=== PATIENT | female | born 2000 | race Caucasian/White ===

== ENCOUNTER 2023-10-23 21:53 | Emergency (ER) | payer OTHER, SELFPAY ==
--- NOTE | 2023-10-23 | ECG_ITS ---
Test Reason : chest pain Blood Pressure : / mmHG Vent. Rate : 085 BPM Atrial Rate : 085 BPM P-R Int : 158 ms QRS Dur : 066 ms QT Int : 350 ms P-R-T Axes : 039 010 000 degrees QTc Int : 416 ms Normal sinus rhythm Normal ECG No previous ECGs available Referred By: Generic ED Physician Electronically Signed By:MARI PARDO MD
[2023-10-23 22:05] VITALS: BP 121/64; PULSE 73; RESP 16; TEMP 36.1; O2SAT 100; BMI 28.2
[2023-10-23 22:32] LABS: IDNOW Serial# 08D9AD1C; Strep A Nucleic Acid Negative (Negative)
[2023-10-23 22:35] LABS: IDNOW Serial# 152EDE1D; Influenza A Negative (Negative); Influenza B2 Negative (Negative)
[2023-10-23 23:24] LABS: COVID-19 Test Negative (Negative); IDNOW Serial# 08D9AD1C
--- OUTSIDE RECORDS SUMMARY | 2023-10-25 10:44 | XMS_ITS | Continuity of Care Document ---
Author Organization [facility] Address [address] [place] [id number]- Care Team Providers Care Invasive Cardiovascular Technologist Name Role Phone Amilcar REED, Juan Pizano Primary Care Physician [facility] Date(s): 09/26/20 - 11/11/[address] [id number] Attending Physician: Not on Staff, Attending MD Allergies, Adverse Reactions, Alerts Substance Reaction Severity Status NKA Active Immunizations Given and Recorded Vaccine Date Status Refusal Reason influenza virus vaccine, inactivated 06/10/19 Give n influenza virus vaccine, inactivated 05/28/17 Give n influenza virus vaccine, inactivated 03/22/16 Give n influenza virus vaccine, inactivated 03/03/15 Give n influenza virus vaccine, inactivated 07/14/14 Give n influenza virus vaccine, inactivated 06/08/13 Singh rded tetanus/diphtheria/pertussis, acel(Tdap) 05/28/17 Given tetanus/diphtheria/pertussis, acel(Tdap) 09/18/13 Recorded Human Papillomavirus Vaccine 06/20/15 Given Human Papillomavirus Vaccine 03/03/15 Given Human Papillomavirus Vaccine 07/14/14 Given Meningococcal Polysaccharide Vaccine 03/03/15 Give n Varicella Virus Vaccine 09/18/13 Recorded Varicella Virus Vaccine 06/08/13 Recorded Measles/Mumps/Rubella Virus Vaccine 09/18/13 Recor ded Measles/Mumps/Rubella Virus Vaccine 01/01/00 Recor ded hepatitis B pediatric vaccine 09/18/13 Recorded hepatitis B pediatric vaccine 06/08/13 Recorded hepatitis B pediatric vaccine 01/31/99 Recorded Menactra (oldterm) 06/08/13 Recorded Poliovirus Vaccine, Inactivated 01/06/03 Recorded Poliovirus Vaccine, Inactivated 07/03/99 Recorded Poliovirus Vaccine, Inactivated 05/03/99 Recorded Poliovirus Vaccine, Inactivated 03/01/99 Recorded diphtheria/tetanus/pertussis, acel(DTaP) 01/06/03 Recorded diphtheria/tetanus/pertussis, acel(DTaP) 07/03/99 Recorded diphtheria/tetanus/pertussis, acel(DTaP) 05/03/99 Recorded diphtheria/tetanus/pertussis, acel(DTaP) 03/01/99 Recorded Measles Virus Vaccine 10/05/99 Recorded Medications aspirin 81 mg oral tablet, chewable 162 mg, 2, tablet, Chew, Daily, continue until 2 weeks , # 60 tablet, Refills 8, Tot. Refills 8, Maintenance, 08/29/20 13:34:00 EDT, Route to Pharmacy Electronically, [facility] #[id number], Partial fill upon patient request if the pres... Start Date: 08/29/20 Status: Ordered Multivitamins with Folic Acid 1 mg oral tablet 1 tablet, By Mouth, Daily, # 90 tablet, 3 Refills, Maintenance, 11/02/20 8:41:00 EDT, Tablet, [facility] #[id number], Partial fill upon patient request if the prescription is for a schedule II opioid drug., 1 tablet By Mouth Daily,x90 days, 163,... Start Date: 11/02/20 Stop Date: 10/28/21 Status: Ordered Problem List Condition Effective Dates Status Health Status Inform ant Acne(Confirmed) Active Gestational hypertension(Confirmed) 1 09/03/20 Active History of gestational hypertension(Confirmed) Active (Confirmed) Active 1Problem added by Discern Expert Social History Social History Type Response Smoking Status Never (less than 100 in lifetime) entered on: 08/10/20 Sex Female
--- OUTSIDE RECORDS SUMMARY | 2023-10-25 10:44 | XMS_ITS | Continuity of Care Document ---
Author Organization [facility] Address [address] [place] [address]- Care Team Providers Care Skull Splitter Name Role Phone Yina PERRY, Codie Primary Care Physician [facility] Date(s): 01/17/21 - 02/23/21 [facility] [address] [address]- Attending Physician: Not on Staff, Attending MD Allergies, Adverse Reactions, Alerts Substance Reaction Severity Status NKA Active Immunizations Given and Recorded Vaccine Date Status Refusal Reason tetanus/diphtheria/pertussis, acel(Tdap) 11/23/20 Given tetanus/diphtheria/pertussis, acel(Tdap) 05/28/17 Given tetanus/diphtheria/pertussis, acel(Tdap) 09/18/13 Recorded influenza virus vaccine, inactivated 06/10/19 Give n influenza virus vaccine, inactivated 05/28/17 Give n influenza virus vaccine, inactivated 03/22/16 Give n influenza virus vaccine, inactivated 03/03/15 Give n influenza virus vaccine, inactivated 07/14/14 Give n influenza virus vaccine, inactivated 06/08/13 Singh rded Human Papillomavirus Vaccine 06/20/15 Given Human Papillomavirus [...] Recorded Measles Virus Vaccine 10/05/99 Recorded Medications acetaminophen 325 mg oral tablet 650 mg, By Mouth, Every 4 hours, PRN, not to exceed 4000 mg/day, # 50 tablet, Refills 0, Tot. Refills 0, Maintenance, Pain , Mild, 02/16/21 8:25:00 EDT, Route to Pharmacy Electronically, [facility] #[id number], Partial fill upon patient request i... Start Date: 02/16/21 Status: Ordered aspirin 81 mg oral tablet, chewable 162 mg, 2, tablet, Chew, Daily, continue until 2 weeks , # 60 tablet, Refills 8, Tot. Refills 8, Maintenance, 08/29/20 13:34:00 EDT, Route to Pharmacy Electronically, [facility] #[id number], Partial fill upon patient request if the pres... Start Date: 08/29/20 Status: Ordered docusate sodium 100 mg oral capsule 1 capsule = 100 mg, By Mouth, 2 times a day, PRN Constipation, # 60 capsule, 0 Refills, Maintenance, 02/16/21 8:26:00 EDT, Capsule, [facility] #[id number], Partial fill upon patient request if the prescription is for a schedule II opioid drug., 1... Start Date: 02/16/21 Status: Ordered ferrous sulfate 325 mg oral enteric coated tablet 325 mg, By Mouth, 3 times a day, # 90 tablet, Refills 1, Tot. Refills 1, Maintenance, 02/16/21 8:28:00 EDT, Route to Pharmacy Electronically, [facility] #[id number], Partial fill upon patient request if the prescription is for a schedule II opioi... Start Date: 02/16/21 Status: Ordered ibuprofen 800 mg oral tablet 800 mg, 1, tablet, By Mouth, Every 8 hours, PRN, not to exceed 3200 mg/day, # 60 tablet, Refills 0,Tot. Refills 0, Maintenance, Pain , Moderate, 02/16/21 8:26:00 EDT, Route to Pharmacy Electronically, [facility] #[id number], Partial fill upon pa... Start Date: 02/16/21 Status: Ordered Multivitamins with Folic Acid 1 mg oral tablet 1 tablet, By Mouth, Daily, # 90 tablet, 3 Refills, Maintenance, 11/02/20 8:41:00 EDT, Tablet, [facility] #[id number], Partial fill upon patient request if the prescription is for a schedule II opioid drug., 1 tablet By Mouth Daily,x90 days, 163,... Start Date: 11/02/20 Stop Date: 10/28/21 Status: Ordered Problem List Condition Effective Dates Status Health Status Inform ant Acne(Confirmed) Active Anemia of (Confirmed) Active Dizzy spells(Confirmed) Active Headache(Confirmed) Active History of gestational hypertension(Confirmed) Active Non-New Zealander speaking patient(Confirmed) Active Right leg pain(Confirmed) Active (Confirmed) Active Social History Social History Type Response Smoking Status Never (less than 100 in lifetime) entered on: 08/10/20 Sex Female
--- OUTSIDE RECORDS SUMMARY | 2023-10-25 10:44 | XMS_ITS | Continuity of Care Document ---
Author Organization [facility] Address Unknown Care Team Providers Care Shipping Services Sales Representative Name Role Phone Amilcar REED, Juan Pizano Primary Care Physician Encounter [facility] Date(s): 12/20/20 - 01/21/21 [facility] Attending Physician: Kavya Wyatt NP Admitting Physician: Kavya Wyatt NP Referring Physician: Gina Frank CNM Allergies, Adverse Reactions, Alerts Substance Reaction Severity [...] 08/29/20 13:34:00 EDT, Route to Pharmacy Electronically, [facility] #[id number], Partial fill upon patient request if the pres... Start Date: 08/29/20 Status: Ordered ferrous sulfate 325 mg oral enteric coated tablet 325 mg, 1, tablet, By Mouth, 3 times a day, # 90 tablet, Refills 4, Tot. Refills 4, Maintenance, 11/25/20 16:25:00 EDT, Route to Pharmacy Electronically, [facility] #[id number], Partial fill upon patient request if the prescription is for a sched... Start Date: 11/25/20 Status: Ordered Multivitamins with Folic Acid 1 mg oral tablet 1 tablet, By Mouth, Daily, # 90 tablet, 3 Refills, Maintenance, 11/02/20 8:41:00 EDT, Tablet, [facility] #[id number], Partial fill upon patient request if the [...]
--- OUTSIDE RECORDS SUMMARY | 2023-10-25 10:45 | XMS_ITS | Continuity of Care Document ---
Author Organization [facility] Address [address] [place] [address]- Care Team Providers Care Golf Teacher Name Role Phone Codie Bran NP Primary Care Physician [phone] [facility]counter [facility] Date(s): 01/17/21 - 03/16/[address] [address]- Attending Physician: Not on Staff, Attending MD [...] 02/16/21 8:25:00 EDT, Route to Pharmacy Electronically, [facility] #[id number], Partial fill upon patient request i... Start Date: 02/16/21 Status: Ordered aspirin 81 mg oral tablet, chewable 162 mg, 2, tablet, Chew, Daily, continue until 2 weeks , # 60 tablet, Refills 8, Tot. Refills 8, Maintenance, 08/29/20 13:34:00 EDT, Route to Pharmacy Electronically, [facility] #[id number], Partial fill upon patient request if the pres... Start Date: 08/29/20 Status: Ordered docusate sodium 100 mg oral capsule 1 capsule = 100 mg, By Mouth, 2 times a day, PRN Constipation, # 60 capsule, 0 Refills, Maintenance, 02/16/21 8:26:00 EDT, Capsule, [facility] #[id number], Partial fill upon patient request if the prescription is for a schedule II opioid drug., 1... Start Date: 02/16/21 Status: Ordered ferrous sulfate 325 mg oral enteric coated tablet 325 mg, By Mouth, 3 times a day, # 90 tablet, Refills 1, Tot. Refills 1, Maintenance, 02/16/21 8:28:00 EDT, Route to Pharmacy Electronically, [facility] #[id number], Partial fill upon patient request if the prescription is for a schedule II opioi... Start Date: 02/16/21 Status: Ordered ibuprofen 800 mg oral tablet 800 mg, 1, tablet, By Mouth, Every 8 hours, PRN, not to exceed 3200 mg/day, # 60 tablet, Refills 0,Tot. Refills 0, Maintenance, Pain , Moderate, 02/16/21 8:26:00 EDT, Route to Pharmacy Electronically, [facility] #[id number], Partial fill upon pa... Start Date: 02/16/21 Status: Ordered Multivitamins with Folic Acid 1 mg oral tablet 1 tablet, By Mouth, Daily, # 90 tablet, 3 Refills, Maintenance, 11/02/20 8:41:00 EDT, Tablet, [facility] #[id number], Partial fill upon patient request if the prescription is for a schedule II opioid drug., 1 tablet By Mouth Daily,x90 days, 163,... Start Date: 11/02/20 Stop Date: 10/28/21 Status: Ordered Problem List Condition Effective Dates Status Health Status Inform ant Acne(Confirmed) Active Anemia of (Confirmed) Active Dizzy spells(Confirmed) Active Headache(Confirmed) Active History of gestational hypertension(Confirmed) Active Non-Taiwanese speaking patient(Confirmed) Active Right leg pain(Confirmed) Active (Confirmed) Active Social History Social History Type Response Smoking Status Never (less than 100 in lifetime) entered on: 08/10/20 Sex
--- OUTSIDE RECORDS SUMMARY | 2023-10-25 10:45 | XMS_ITS | Continuity of Care Document ---
Author Organization [facility] Address [address] [place] [address]- Care Team Providers Care Bag Shaker Name Role Phone Yina PERRY, Codie Primary Care Physician [facility]counter [facility] Date(s): 08/28/21 - 09/28/[address] [address]- Attending Physician: Codie Bran NP Admitting Physician: Codie Bran NP Allergies, Adverse Reactions, Alerts No Known Allergies Immunizations Given and Recorded Vaccine Date Status [...] 02/16/21 8:25:00 EDT, Route to Pharmacy Electronically, [facility] #[id number], Partial fill upon patient request i... Start Date: 02/16/21 Status: Ordered aspirin 81 mg oral tablet, chewable 162 mg, 2, tablet, Chew, Daily, continue until 2 weeks , # 60 tablet, Refills 8, Tot. Refills 8, Maintenance, 08/29/20 13:34:00 EDT, Route to Pharmacy Electronically, [facility] #[id number], Partial fill upon patient request if the pres... Start Date: 08/29/20 Status: Ordered docusate sodium 100 mg oral capsule 1 capsule = 100 mg, By Mouth, 2 times a day, PRN Constipation, # 60 capsule, 0 Refills, Maintenance, 02/16/21 8:26:00 EDT, Capsule, [facility] #[id number], Partial fill upon patient request if the prescription is for a schedule II opioid drug., 1... Start Date: 02/16/21 Status: Ordered ferrous sulfate 325 mg oral enteric coated tablet 325 mg, By Mouth, 3 times a day, # 90 tablet, Refills 1, Tot. Refills 1, Maintenance, 02/16/21 8:28:00 EDT, Route to Pharmacy Electronically, [facility] #[id number], Partial fill upon patient request if the prescription is for a schedule II opioi... Start Date: 02/16/21 Status: Ordered ibuprofen 800 mg oral tablet 800 mg, 1, tablet, By Mouth, Every 8 hours, PRN, not to exceed 3200 mg/day, # 60 tablet, Refills 0,Tot. Refills 0, Maintenance, Pain , Moderate, 02/16/21 8:26:00 EDT, Route to Pharmacy Electronically, [facility] #[id number], Partial fill upon pa... Start Date: 02/16/21 Status: Ordered Multivitamins with Folic Acid 1 mg oral tablet 1 tablet, By Mouth, Daily, # 90 tablet, 3 Refills, Maintenance, 11/02/20 8:41:00 EDT, Tablet, [facility] #[id number], Partial fill upon patient request if the prescription is for a schedule II opioid drug., 1 tablet By Mouth Daily,x90 days, 163,... Start Date: 11/02/20 Stop Date: 10/28/21 Status: Ordered Problem List Condition Effective Dates Status Health Status Inform ant Acne(Confirmed) Active Anemia of (Confirmed) Active COVID-19(Confirmed) Active Dizzy spells(Confirmed) Active Headache(Confirmed) Active History of gestational hypertension(Confirmed) Active Non-American speaking patient(Confirmed) Active Right leg pain(Confirmed) Active (Confirmed) Active Social History Social History Type Response Smoking Status Never (less than 100 in lifetime) entered on: 08/10/20 Sex
--- OUTSIDE RECORDS SUMMARY | 2023-10-25 10:45 | XMS_ITS | Continuity of Care Document ---
Author Organization [facility] Address [address] [place] [address]- Care Team Providers Care Concrete Swimming Pool Installer Name Role Phone Yina PERRY, Codie Primary Care Physician Encounter [facility] Date(s): 07/29/20 - 07/29/[address] [address] Discharge Disposition: A-D/C Walkout Attending Physician: Tatyana Parra MD Admitting Physician: Tatyana Parra MD Referring Physician: Tatyana Parra MD Allergies, Adverse Reactions, Alerts Substance Reaction [...] Recorded Measles Virus Vaccine 10/05/99 Recorded Medications ondansetron 4 mg oral tablet, disintegrating 1 tablet = 4 mg, By Mouth, Every 8 hours, PRN Nausea & Vomiting, # 30 tablet, 1 Refills, Maintenance, 07/23/20 18:02:00 EST, Tablet, [facility] #[id number], Partial fill upon patient requestif the prescription is for a schedule II opioid drug.,... Start Date: 07/23/20 Status: Ordered Prenatabs Rx oral tablet 1 tablet, By Mouth, Daily, # 30 tablet, 10 Refills, Maintenance, 07/23/20 18:01:00 EST, Tablet, [facility] #[id number], Partial fill upon patient request if the prescription is for a schedule IIopioid drug., 1 tablet By Mouth Daily, 163, cm, 11/... Start Date: 07/23/20 Status: Ordered Tylenol 325 mg oral capsule 2 capsule = 650 mg, By Mouth, Every 6 hours, PRN as needed for pain, # 60 capsule, 1 Refills, Maintenance, 07/23/20 18:02:00 EST, Capsule, [facility] #[id number], Partial fill upon patient request if the prescription is for a schedule II opioid d... Start Date: 07/23/20 Status: Ordered Unisom 25 mg oral tablet 1 tablet = 25 mg, By Mouth, Daily at bedtime, PRN for sleep, # 32 tablet, 1 Refills, Maintenance, 07/23/20 18:02:00 EST, Tablet, [facility] #[id number], Partial fill upon patient request if the prescription is for a schedule II opioid drug., 163,... Start Date: 07/23/20 Status: Ordered Vitamin B6 50 mg oral tablet 50 mg, 1, tablet, By Mouth, Daily, for 14 days, # 30 tablet, Refills 1, Tot. Refills 1, Acute 08/20/20 18:02:00 EDT, 07/23/20 18:02:00 EST, Route to Pharmacy Electronically, [facility] #[id number], Partial fill upon patient request if the prescri... Start Date: 07/23/20 Stop Date: 08/20/20 Status: Ordered Problem List Condition Effective Dates Status Health Status Inform ant Acne(Confirmed) Active Fever and chills(Confirmed) Active Social History Social History Type Response Smoking Status Never smoker; Tobacc o user in household: No; Type: Cigarettes entered on: 09/29/14 Sex Female
--- OUTSIDE RECORDS SUMMARY | 2023-10-25 10:45 | XMS_ITS | Continuity of Care Document ---
Author Organization [facility] Address [address] [place] [address]- Care Team Providers Care Customer Care Associate Name Role Phone Juan Fitzgerald MD Primary Care Physician [facility] Date(s): 11/23/19 - 12/23/19 [facility] [address] [address] Attending Physician: AdmCarlin [email or web address] Admitting Physician: Admtr, Ar8 Referring Physician: Admtr, Ar8 Allergies, Adverse Reactions, Alerts Substance Reaction Severity [...] Recorded Measles Virus Vaccine 10/05/99 Recorded Medications ParaGard intrauterine device 0 Refills, Maintenance, 11/23/19 9:17:00 EDT Start Date: 11/23/19 Status: Ordered Problem List Condition Effective Dates Status Health Status Inform ant Acne(Confirmed) Active Social History Social History Type Response Smoking Status Never smoker; Tobacc o user in household: No; Type: Cigarettes entered on: 09/29/14 Sex Female
--- OUTSIDE RECORDS SUMMARY | 2023-10-25 10:45 | XMS_ITS | Continuity of Care Document ---
Author Organization [facility] Address [address] [place] [address]- Care Team Providers Care Die Holder Name Role Phone Yina PERRY, Codie Primary Care Physician [facility] Date(s): 11/13/21 - 12/13/21 [facility] [address] [place] [address]- Allergies, Adverse Reactions, Alerts No Known Allergies [...] Recorded Measles Virus Vaccine 10/05/99 Recorded Medications Multivitamins with Folic Acid 1 mg oral tablet 1 tablet, By Mouth, Daily, # 90 tablet, 3 Refills, Maintenance, 11/28/21 13:23:00 EDT, Tablet, [facility] #[id number], Partial fill upon patient request if the prescription is for a schedule II opioid drug., 1 tablet By Mouth Daily,x90 days, 159,... Start Date: 11/28/21 Stop Date: 11/23/22 Status: Ordered Problem List Condition Effective Dates Status Health Status Inform ant Acne(Confirmed) Active COVID-19(Confirmed) Active Dizzy spells(Confirmed) Active Headache(Confirmed) Active History of gestational hypertension(Confirmed) Active Non-Wol[place] speaking patient(Confirmed) Active Social History Social History Type Response Smoking Status Never (less than 100 in lifetime) entered on: 08/10/20 Sex
--- OUTSIDE RECORDS SUMMARY | 2023-10-25 10:45 | XMS_ITS | Continuity of Care Document ---
Author Organization [facility] Address [address] [place] [address]- Care Team Providers Care Fund Director Name Role Phone Amilcar REED, Juan Pizano Primary Care Physician [facility] Date(s): 08/29/20 - 11/25/20 [facility] [address] [id number] Attending Physician: Not on Staff, Attending MD [...] 08/29/20 13:34:00 EDT, Route to Pharmacy Electronically, [facility] #[id number], Partial fill upon patient request if the pres... Start Date: 08/29/20 Status: Ordered ferrous sulfate 325 mg oral enteric coated tablet 325 mg, 1, tablet, By Mouth, 3 times a day, # 90 tablet, Refills 4, Tot. Refills 4, Maintenance, 11/25/20 16:25:00 EDT, Route to Pharmacy Electronically, [facility] #[id number], Partial fill upon patient request if the prescription is for a sched... Start Date: 11/25/20 Status: Ordered Multivitamins with Folic Acid 1 mg oral tablet 1 tablet, By Mouth, Daily, # 90 tablet, 3 Refills, Maintenance, 11/02/20 8:41:00 EDT, Tablet, [facility] #[id number], Partial fill upon patient request if the [...]
--- OUTSIDE RECORDS SUMMARY | 2023-10-25 10:45 | XMS_ITS | Continuity of Care Document ---
Author Organization [facility] Address [address] [place] [address]- Care Team Providers Care Folder Stitcher Operator Name Role Phone Yina PERRY, Codie Primary Care Physician [phone] [facility] Date[facility]): 01[facility]23 - 03/06/[address] [address] Attending Physician: Not on Staff, Attending MD Allergies, Adverse Reactions, Alerts No Known Allergies [...] Recorded Measles Virus Vaccine 10/05/99 Recorded Medications Advair Diskus 100 mcg-50 mcg inhalation powder 1, puffs, Inhalation, 2 times a day, # 28 each, Refills 5, Tot. Refills 5, Maintenance, 02/27/23 14:42:00 EDT, Powder, Route to Pharmacy Electronically, [id number], [facility]/pharmacy #[id number], 166, cm, 02/27/23 14:02:00 EDT, Height,... Start Date: 02/27/23 Status: Ordered albuterol CFC free 90 mcg/inh inhalation aerosol 2, puffs, Inhalation, Every 6 hours, PRN, # 8.5 Gm, Refills 4, Tot. Refills 4, Maintenance, 02/13/23 15:05:00 EDT, Route to Pharmacy Electronically, [id number], [facility]/pharmacy#[id number], 166, cm, 02/13/23 14:58:00 EDT, Height, 70.8... Start Date: 02/13/23 Status: Ordered albuterol-ipratropium 3 mg-0.5 mg/3 ml inhalation solution See Instructions, 3 mL Inhalation 4 times a day prn wheezing., # 90 mL, 11 Refills, Maintenance, 02/27/23 14:58:00 EDT, Solution, [facility]/pharmacy #[id number], Partial fill upon patient request if the prescription is for a schedule II opioid drug., 3 mL Inhalat... Start Date: 02/27/23 Status: Ordered benzonatate 200 mg oral capsule 1 capsule = 200 mg, By Mouth, 3 times a day, PRN as needed for cough, for 14 days, # 42 capsule, 0 Refills, Acute 03/19/23 14:51:00 EDT, 03/05/23 14:51:00 EDT, Capsule, [facility]/pharmacy #[id number], Partial fill upon patient request if the prescription is for a... Start Date: 03/05/23 Stop Date: 03/19/23 Status: Ordered fluticasone 50 mcg/inh nasal spray 1 sprays, Nares, Both, 2 times a day, # 16 Gm, 0 Refills, Maintenance, 03/05/23 14:51:00 EDT, [place], [facility]/pharmacy #[id number], Partial fill upon patient request if the prescription is for a schedule II opioid drug., 1 sprays Nares, Both 2 times a day, 166,... Start Date: 03/05/23 Status: Ordered lidocaine 5% topical film 1 patch, Topically, Daily, PRN Pain , Mild, remove after 12 hours, # 13 each, 0 Refills, Maintenance, 01/16/23 16:19:00 EDT, Film, [facility]/pharmacy #[id number], Partial fill upon patient request if the prescription is for a schedule II opioid drug., 1 patch Top... Start Date: 01/16/23 Status: Ordered Liletta 52 mg intrauterine device 1 each = 52 mg, Once, inserted 04/09, 0 Refills, Maintenance, 05/24/22 7:11:00 EST, Partial fill upon patient request if the prescription is for a schedule II opioid drug. Start Date: 05/24/22 Status: Ordered Nebulizer tubing and supplies Nebulizer tubing and supplies, See Instructions, # 1 each, Refills 0, Tot. Refills 0, Maintenance, ICD J45.909, 02/27/23 15:01:00 EDT, Supply Start Date: 02/27/23 Status: Ordered Nebulizer/Compressor See Instructions, # 1 each, Maintenance, Please use with you nebulizer medication. J45.909, 02/27/23 14:55:00 EDT, Supply Start Date: 02/27/23 Status: Ordered Singulair 10 mg oral tablet 10 mg, 1, tablet, By Mouth, Daily, # 30 tablet, Refills 5, Tot. Refills 5, Maintenance, 02/13/23 15:07:00 EDT, Route to Pharmacy Electronically, [facility]/pharmacy #[id number], Partial fill upon patient request if the prescription is for a schedule II opioid drug... Start Date: 02/13/23 Stop Date: 08/12/23 Status: Ordered Tylenol 325 mg oral capsule 2 capsule = 650 mg, By Mouth, Every 4 hours, PRN as needed for pain, # 90 capsule, 0 Refills, Maintenance, 01/16/23 16:38:00 EDT, Capsule, [facility]/pharmacy #[id number], Partial fill upon patient request if theprescription is for a schedule II opioid drug., 166... Start Date: 01/16/23 Status: Ordered Zithromax Z-Eliseo 250 mg oral tablet 1 pack/packet, By Mouth, Once, # 6 tablet, 0 Refills, Soft Stop, 02/13/23 15:05:00 EDT, Tablet, [facility]/pharmacy #[id number], Partial fill upon patient request if the prescription is for a schedule II opioid drug., 166, cm, 02/13/23 14:58:00 EDT, Height, 70.8,... Start Date: 02/13/23 Status: Ordered Problem List Condition Confirmation Course Effective Dates Status Health St atus Informant Acne Confirmed Active Dizzy spells Confirmed Active Headache Confirmed Active History of gestational hypertension Confirmed Active Non-Bahraini speaking patient Confirmed Active Social History Social History Type Response Smoking Status Never (less than 100 in lifetime) entered on: 08/10/20 Sex Patient Care team information Care Team Personnel Name: Codie Bran NP Position: [facility] PCO Associate Professional Member Role: PCP Address: Address: [address] [place], [place] [id number]- Care Team Related Persons Name: JONO WADSWORTH Address: home [address] [place] [id number] Name: SYD MENDEZ Address: home [address] [place] [id number] Name: MAEVE RODRIGUEZ Address: [address] Address: [address]
--- OUTSIDE RECORDS SUMMARY | 2023-10-25 10:45 | XMS_ITS | Continuity of Care Document ---
Author Organization [facility] Address [address] [place] [address]- Care Team Providers Care Psychiatry Physician Name Role Phone Yina PERRY, Codie Primary Care Physician [facility] Date[facility]): 07/18/20 - 08/17/20 [facility] [address] [address] Allergies, Adverse Reactions, Alerts Substance Reaction Severity [...] tablet, Refills 8, Tot. Refills 8, Maintenance, 08/10/20 11:50:00 EDT, Route to Pharmacy Electronically, [facility] #[id number], Partial fill upon patient request if the pres... Start Date: 08/10/20 Status: Ordered ondansetron 4 mg oral tablet, disintegrating 1 tablet = 4 mg, By Mouth, Every 8 hours, PRN Nausea & Vomiting, # 30 tablet, 1 Refills, Maintenance, 07/23/20 18:02:00 EST, Tablet, [facility] #[id number], Partial fill upon patient requestif the prescription is for a schedule II opioid drug.,... Start Date: 07/23/20 Status: Ordered Prenatabs Rx oral tablet 1 tablet, By Mouth, Daily, # 30 tablet, 10 Refills, Maintenance, 07/23/20 18:01:00 EST, Tablet, [facility] #[id number], Partial fill upon patient request if the prescription is for a schedule IIopioid drug., 1 tablet By Mouth Daily, 163, cm, ... Start Date: 07/23/20 Status: Ordered Tylenol 325 mg oral capsule 2 capsule = 650 mg, By Mouth, Every 6 hours, PRN as needed for pain, # 60 capsule, 1 Refills, Maintenance, 07/23/20 18:02:00 EST, Capsule, [facility] #[id number], Partial fill upon patient request if the prescription is for a schedule II opioid d... Start Date: 07/23/20 Status: Ordered Unisom 25 mg oral tablet 1 tablet = 25 mg, By Mouth, Daily at bedtime, PRN for sleep, # 32 tablet, 1 Refills, Maintenance, 07/23/20 18:02:00 EST, Tablet, [facility] #[id number], Partial fill upon patient request if the prescription is for a schedule II opioid drug., 163,... Start Date: 07/23/20 Status: Ordered Vitamin B6 50 mg oral tablet 50 mg, 1, tablet, By Mouth, Daily, for 14 days, # 30 tablet, Refills 1, Tot. Refills 1, Acute 08/20/20 18:02:00 EDT, 07/23/20 18:02:00 EST, Route to Pharmacy Electronically, [facility] #[id number], Partial fill upon patient request if the prescri... Start Date: 07/23/20 Stop Date: 08/20/20 Status: Ordered Problem List Condition Effective Dates Status Health Status Inform ant Acne(Confirmed) Active History of gestational hypertension(Confirmed) Active Social History Social History Type Response Smoking Status Never (less than 100 in lifetime) entered on: 08/10/20 Sex Female
--- OUTSIDE RECORDS SUMMARY | 2023-10-25 10:45 | XMS_ITS | Continuity of Care Document ---
Author Organization [facility] ter Address [address] [place] [address]- Care Team Providers Care Agricultural Service Technician Name Role Phone Yina PERRY, Codie Primary Care Physician [facility] Date[facility]): 06/12/19 - 06/13/[address] [address]- [facility] Discharge Disposition: A-D/C Home Attending Physician: Ade Calderón DO Admitting Physician: Ade Calderón DO Referring Physician: Ade Calderón DO Allergies, Adverse Reactions, Alerts Substance Reaction Severity [...] Recorded Measles Virus Vaccine 10/05/99 Recorded Medications ibuprofen 800 mg oral tablet 800 mg, 1, tablet, By Mouth, 3 times a day, # 50 tablet, Refills 0, Tot. Refills 0, Maintenance, 06/12/19 23:33:00 EST, Route to Pharmacy Electronically, [facility] #[id number], 163, cm, 06/12/19 20:18:00 EST, Height Start Date: 06/12/19 Status: Ordered Tylenol 325 mg oral tablet 325 mg, 1, tablet, By Mouth, Every 4 hours, PRN, # 60 tablet, Refills 0, Tot. Refills 0, Maintenance, for pain, 06/12/19 23:33:00 EST, Route to Pharmacy Electronically, [facility] #[id number], 163, cm, 06/12/19 20:18:00 EST, Height Start Date: 06/12/19 Status: Ordered Problem List Condition Effective Dates Status Health Status Inform ant Acne(Confirmed) Active Contraception(Confirmed) Active Distressed about housing issues(Confirmed) Active Positive test(Confirmed) Active Vital Signs Most recent to oldest [Reference Range]: 1 2 Height 163 cm (06/12/19 8:18 PM) Oxygen Saturation [94-100 %] 100 % (06/12/19 8:18 PM) Pulse Rate [55-90 bpm] 87 bpm (06/12/19 8:18 PM) Blood Pressure [90-138/55-84 mm Hg] 122/ 76mm Hg (06/12/19 8:18 PM) Respiratory Rate [16-30 br/min] 16 br/mi n (06/12/19 10:10 PM) 16 br/min (06/12/19 8:18 PM) Temperature [96.8-100.4 DegF] 98.2 DegF (06/12/19 8:18 PM) Mode of Delivery (Oxygen) Room air (06/12/19 8:18 PM) Blood pressure sites Arm, left (06/12/19 8:18 PM) Temperature Route Oral (06/12/19 8:18 PM) Social History Social History Type Response Smoking Status Never smoker; Tobacc o user in household: No; Type: Cigarettes entered on: 09/29/14 Sex
--- OUTSIDE RECORDS SUMMARY | 2023-10-25 10:45 | XMS_ITS | Continuity of Care Document ---
Author Organization [facility] Address [address] [place] [address]- Care Team Providers Care Radioactivity Technician Name Role Phone Codie Bran NP Primary Care Physician [phone] [facility] Date(s): 06/18/19 - 06/28/[address] [address]- [facility] Attending Physician: Greg Canales Admitting Physician: AdmtrGreg Referring Physician: Admtr, Ar8 Allergies, Adverse Reactions, [...] 06/12/19 23:33:00 EST, Route to Pharmacy Electronically, [facility] #[id number], 163, cm, 06/12/19 20:18:00 EST, Height Start Date: 06/12/19 Status: Ordered Tylenol 325 mg oral tablet 325 mg, 1, tablet, By Mouth, Every 4 hours, PRN, # 60 tablet, Refills 0, Tot. Refills 0, Maintenance, for pain, 06/12/19 23:33:00 EST, Route to Pharmacy Electronically, [facility] #[id number], 163, cm, 06/12/19 20:18:00 EST, Height Start Date: 06/12/19 Status: Ordered Problem List Condition Effective Dates Status Health Status Inform ant Acne(Confirmed) Active Contraception(Confirmed) Active Distressed about housing issues(Confirmed) Active Positive test(Confirmed) Active Social History Social History Type Response Smoking Status Never smoker; Tobacc o user in household: No; Type: Cigarettes entered on: 09/29/14 Sex
--- OUTSIDE RECORDS SUMMARY | 2023-10-25 10:45 | XMS_ITS | Continuity of Care Document ---
Author Organization [facility] ter Address [address] [place] [address]- Care Team Providers Care Vice Principal Name Role Phone Yina PERRY, Codie Primary Care Physician [place] [facility] [place] - 02/16/[address] [address] Discharge Disposition: A-D/C Home Attending Physician: Guanaco Phelps MD Admitting Physician: Guanaco Phelps MD Referring Physician: Guanaco Phelps MD Allergies, Adverse Reactions, Alerts Substance Reaction [...] 02/16/21 8:25:00 EDT, Route to Pharmacy Electronically, [facility] #[id number], Partial fill upon patient request i... Start Date: 02/16/21 Status: Ordered aspirin 81 mg oral tablet, chewable 162 mg, 2, tablet, Chew, Daily, continue until 2 weeks , # 60 tablet, Refills 8, Tot. Refills 8, Maintenance, 08/29/20 13:34:00 EDT, Route to Pharmacy Electronically, [facility] #[id number], Partial fill upon patient request if the pres... Start Date: 08/29/20 Status: Ordered docusate sodium 100 mg oral capsule 1 capsule = 100 mg, By Mouth, 2 times a day, PRN Constipation, # 60 capsule, 0 Refills, Maintenance, 02/16/21 8:26:00 EDT, Capsule, [facility] #[id number], Partial fill upon patient request if the prescription is for a schedule II opioid drug., 1... Start Date: 02/16/21 Status: Ordered ferrous sulfate 325 mg oral enteric coated tablet 325 mg, By Mouth, 3 times a day, # 90 tablet, Refills 1, Tot. Refills 1, Maintenance, 02/16/21 8:28:00 EDT, Route to Pharmacy Electronically, [facility] #[id number], Partial fill upon patient request if the prescription is for a schedule II opioi... Start Date: 02/16/21 Status: Ordered ibuprofen 800 mg oral tablet 800 mg, 1, tablet, By Mouth, Every 8 hours, PRN, not to exceed 3200 mg/day, # 60 tablet, Refills 0,Tot. Refills 0, Maintenance, Pain , Moderate, 02/16/21 8:26:00 EDT, Route to Pharmacy Electronically, [facility] #[id number], Partial fill upon pa... Start Date: 02/16/21 Status: Ordered Multivitamins with Folic Acid 1 mg oral tablet 1 tablet, By Mouth, Daily, # 90 tablet, 3 Refills, Maintenance, 11/02/20 8:41:00 EDT, Tablet, [facility] #[id number], Partial fill upon patient request if the prescription is for a schedule II opioid drug., 1 tablet By Mouth Daily,x90 days, 163,... Start Date: 11/02/20 Stop Date: 10/28/21 Status: Ordered Problem List Condition Effective Dates Status Health Status Inform ant Acne(Confirmed) Active Anemia of (Confirmed) Active Dizzy spells(Confirmed) Active Headache(Confirmed) Active History of gestational hypertension(Confirmed) Active Non-Austrian speaking patient(Confirmed) Active Right leg pain(Confirmed) Active (Confirmed) Active Vital Signs Most recent to oldest [Reference Range]: 1 2 3 Height 168 cm (02/16/21 9:00 AM) 168 cm (02/16/21 8:50 AM) 168 cm (02/16/21 12:10 AM) Weight 75 kg (02/13/21 11:17 PM) 75 kg (02/13/21 9:14 PM) Oxygen Saturation [94-100 %] 99 % (02/16/21 12:10 AM) 99 % (02/15/21 2:00 AM) 99 % (02/14/21 8:30 PM) Pulse Rate [55-90 bpm] 81 bpm (02/16/21 8:50 AM) 78 bpm (02/16/21 12:10 AM) 73 bpm (02/15/21 3:45 PM) Body Mass Index [18.5-24.99] 26.57 *H* (02/13/21 9:14 PM) Blood Pressure [90-138/55-84 mm Hg] 116/72mm Hg (02/16/21 8:50 AM) 116/75mm Hg (02/16/21 12:10 AM) 112/66mm Hg (02/15/21 3:45 PM) Respiratory Rate [16-30 br/min] 18 br/min (02/16/21 8:50 AM) 17 br/min (02/16/21 12:10 AM) 17 br/min (02/15/21 3:45 PM) Temperature [96.8-100.4 DegF] 97.8 DegF (02/16/21 8:50 AM) 97.8 DegF (02/16/21 12:10 AM) 98.2 DegF (02/15/21 3:45 PM) Mode of Delivery (Oxygen) Room air (02/16/21 12:10 AM) Room air (02/15/21 2:00 AM) Room air (02/14/21 8:30 PM) Blood pressure sites Arm, left (02/15/21 3:45 PM) Arm, right (02/15/21 8:45 AM) Arm, left (02/14/21 3:46 PM) Temperature Route Oral (02/16/21 8:50 AM) Oral (02/16/21 12:10 AM) Oral (02/15/21 3:45 PM) Dry Weight 75 kg (02/13/21 9:14 PM) Weight Obtained Via Patient/family state d (02/13/21 11:17 PM) Social History Social History Type Response Smoking Status Never (less than 100 in lifetime) entered on: 08/10/20 Sex Female
--- OUTSIDE RECORDS SUMMARY | 2023-10-25 10:45 | XMS_ITS | Continuity of Care Document ---
Author Organization [facility] Address [address] [place] [address]- Care Team Providers Care Tankerman Name Role Phone Yina PERRY, Codie Primary Care Physician [facility] Date[facility]): 01/12/21 - 02/11/[address] [address] Allergies, Adverse Reactions, Alerts Substance Reaction [...] 08/29/20 13:34:00 EDT, Route to Pharmacy Electronically, [facility] #[id number], Partial fill upon patient request if the pres... Start Date: 08/29/20 Status: Ordered ferrous sulfate 325 mg oral enteric coated tablet 325 mg, 1, tablet, By Mouth, 3 times a day, # 90 tablet, Refills 4, Tot. Refills 4, Maintenance, 11/25/20 16:25:00 EDT, Route to Pharmacy Electronically, [facility] #[id number], Partial fill upon patient request if the prescription is for a sched... Start Date: 11/25/20 Status: Ordered Multivitamins with Folic Acid 1 mg oral tablet 1 tablet, By Mouth, Daily, # 90 tablet, 3 Refills, Maintenance, 11/02/20 8:41:00 EDT, Tablet, [facility] #[id number], Partial fill upon patient request if the prescription is for a schedule II opioid drug., 1 tablet By Mouth Daily,x90 days, 163,... Start Date: 11/02/20 Stop Date: 10/28/21 Status: Ordered Tylenol 325 mg oral capsule 1 capsule = 325 mg, By Mouth, Every 4 hours, PRN Pain , Mild, # 20 capsule, 0 Refills, Acute 03/01/21 11:38:00 EDT, 01/30/21 11:37:00 EDT, Capsule, [facility] #[id number], Partial fill upon patient request if the prescription is for a schedule II... Start Date: 01/30/21 Stop Date: 03/01/21 Status: Ordered Problem List Condition Effective Dates Status Health Status Inform ant Acne(Confirmed) Active Gestational hypertension(Confirmed) 1 09/03/20 Active History of gestational hypertension(Confirmed) Active (Confirmed) Active 1Problem added by Discern Expert Social History Social History Type Response Smoking Status Never (less than 100 in lifetime) entered on: 08/10/20 Sex Female
--- OUTSIDE RECORDS SUMMARY | 2023-10-25 10:45 | XMS_ITS | Continuity of Care Document ---
Author Organization [facility] Address [address] [place] [address]- Care Team Providers Care Line Locator Name Role Phone Yina PERRY, Codie Primary Care Physician [facility] Date[facility]s): 04/04/21 - 05/04/[address] [address] Allergies, Adverse Reactions, Alerts Substance Reaction Severity [...] 02/16/21 8:25:00 EDT, Route to Pharmacy Electronically, [facility] #[id number], Partial fill upon patient request i... Start Date: 02/16/21 Status: Ordered aspirin 81 mg oral tablet, chewable 162 mg, 2, tablet, Chew, Daily, continue until 2 weeks , # 60 tablet, Refills 8, Tot. Refills 8, Maintenance, 08/29/20 13:34:00 EDT, Route to Pharmacy Electronically, [facility] #[id number], Partial fill upon patient request if the pres... Start Date: 08/29/20 Status: Ordered docusate sodium 100 mg oral capsule 1 capsule = 100 mg, By Mouth, 2 times a day, PRN Constipation, # 60 capsule, 0 Refills, Maintenance, 02/16/21 8:26:00 EDT, Capsule, [facility] #[id number], Partial fill upon patient request if the prescription is for a schedule II opioid drug., 1... Start Date: 02/16/21 Status: Ordered ferrous sulfate 325 mg oral enteric coated tablet 325 mg, By Mouth, 3 times a day, # 90 tablet, Refills 1, Tot. Refills 1, Maintenance, 02/16/21 8:28:00 EDT, Route to Pharmacy Electronically, [facility] #[id number], Partial fill upon patient request if the prescription is for a schedule II opioi... Start Date: 02/16/21 Status: Ordered ibuprofen 800 mg oral tablet 800 mg, 1, tablet, By Mouth, Every 8 hours, PRN, not to exceed 3200 mg/day, # 60 tablet, Refills 0,Tot. Refills 0, Maintenance, Pain , Moderate, 02/16/21 8:26:00 EDT, Route to Pharmacy Electronically, [facility] #[id number], Partial fill upon pa... Start Date: 02/16/21 Status: Ordered Multivitamins with Folic Acid 1 mg oral tablet 1 tablet, By Mouth, Daily, # 90 tablet, 3 Refills, Maintenance, 11/02/20 8:41:00 EDT, Tablet, [facility] #[id number], Partial fill upon patient request if the prescription is for a schedule II opioid drug., 1 tablet By Mouth Daily,x90 days, 163,... Start Date: 11/02/20 Stop Date: 10/28/21 Status: Ordered Problem List Condition Effective Dates Status Health Status Inform ant Acne(Confirmed) Active Anemia of (Confirmed) Active Dizzy spells(Confirmed) Active Headache(Confirmed) Active History of gestational hypertension(Confirmed) Active Non-Fijian speaking patient(Confirmed) Active Right leg pain(Confirmed) Active (Confirmed) Active Social History Social History Type Response Smoking Status Never (less than 100 in lifetime) entered on: 08/10/20 Sex
--- OUTSIDE RECORDS SUMMARY | 2023-10-25 10:45 | XMS_ITS | Continuity of Care Document ---
Author Organization [facility] Address [address] [place] [address]- Care Team Providers Care Dumpcart Driver Name Role Phone Yina PERRY, Codie Primary Care Physician [facility] Date(s): 06/29/20 - 07/29/[address] [address]- Attending Physician: Greg Canales Admitting Physician: Greg Canales Referring Physician: AdmtrGreg Allergies, Adverse Reactions, Alerts Substance Reaction Severity [...] 1 Refills, Maintenance, 07/23/20 18:02:00 EST, Tablet, [facility] #[id number], Partial fill upon patient requestif the prescription is for a schedule II opioid drug.,... Start Date: 07/23/20 Status: Ordered Prenatabs Rx oral tablet 1 tablet, By Mouth, Daily, # 30 tablet, 10 Refills, Maintenance, 07/23/20 18:01:00 EST, Tablet, [facility] #[id number], Partial fill upon patient request if the prescription is for a schedule IIopioid drug., 1 tablet By Mouth Daily, 163, cm, 11/... Start Date: 07/23/20 Status: Ordered Tylenol 325 mg oral capsule 2 capsule = 650 mg, By Mouth, Every 6 hours, PRN as needed for pain, # 60 capsule, 1 Refills, Maintenance, 07/23/20 18:02:00 EST, Capsule, [facility] #[id number], Partial fill upon patient request if the prescription is for a schedule II opioid d... Start Date: 07/23/20 Status: Ordered Unisom 25 mg oral tablet 1 tablet = 25 mg, By Mouth, Daily at bedtime, PRN for sleep, # 32 tablet, 1 Refills, Maintenance, 07/23/20 18:02:00 EST, Tablet, [facility] #[id number], Partial fill upon patient request if the prescription is for a schedule II opioid drug., 163,... Start Date: 07/23/20 Status: Ordered Vitamin B6 50 mg oral tablet 50 mg, 1, tablet, By Mouth, Daily, for 14 days, # 30 tablet, Refills 1, Tot. Refills 1, Acute 08/20/20 18:02:00 EDT, 07/23/20 18:02:00 EST, Route to Pharmacy Electronically, [facility] #[id number], Partial fill upon patient request if the prescri... Start Date: 07/23/20 Stop Date: 08/20/20 Status: Ordered Problem List Condition Effective Dates Status Health Status Inform ant Acne(Confirmed) Active Fever and chills(Confirmed) Active Social History Social History Type Response Smoking Status Never smoker; Tobacc o user in household: No; Type: Cigarettes entered on: 09/29/14 Sex Female
--- OUTSIDE RECORDS SUMMARY | 2023-10-25 10:45 | XMS_ITS | Continuity of Care Document ---
Author Organization [facility] Address [address] [place] [address]- Care Team Providers Care Unmanned Equipment Operator Name Role Phone Yina PERRY, Codie Primary Care Physician [facility] Date(s): 03/07/22 - 04/06/[address] [address] Allergies, Adverse Reactions, Alerts No Known Allergies [...] Recorded Measles Virus Vaccine 10/05/99 Recorded Medications Chloraseptic 6 mg-10 mg mucous membrane lozenge 1 lozenge, By Mouth, Every 2 hours, PRN for sore throat, # 18 each, 0 Refills, Maintenance, 12/29/21 15:49:00 EDT, Lozenge, [facility]/pharmacy #[id number], Partial fill upon patient request if the prescription is for a schedule II opioid drug., 1 lozenge By Mouth... Start Date: 12/29/21 Status: Ordered ibuprofen 600 mg oral tablet 600 mg, 1, tablet, By Mouth, Every 6 hours, PRN, # 20 tablet, Refills 0, Tot. Refills 0, Maintenance, Pain , Moderate, 12/29/21 15:51:00 EDT, Route to Pharmacy Electronically, [facility]/pharmacy #[id number], Partial fill upon patient request if the prescription i... Start Date: 12/29/21 Status: Ordered Multivitamins with Folic Acid 1 mg oral tablet 1 tablet, By Mouth, Daily, # 90 tablet, 3 Refills, Maintenance, 11/28/21 13:23:00 EDT, Tablet, [facility] #[id number], Partial fill upon patient request if the prescription is for a schedule II opioid drug., 1 tablet By Mouth Daily,x90 days, 159,... Start Date: 11/28/21 Stop Date: 11/23/22 Status: Ordered Tylenol 8 Hour 650 mg oral tablet, extended release 2 tablet = 1,300 mg, By Mouth, Every 8 hours, PRN as needed for fever, # 24 tablet, 0 Refills, Maintenance, 12/29/21 15:49:00 EDT, ER Tablet, [facility]/pharmacy #[id number], Partial fill upon patient request if the prescription is for a schedule II opioid drug.,... Start Date: 12/29/21 Status: Ordered Problem List Condition Confirmation Course Effective Dates Status Health St [facility] Informant Acne Confirmed Active COVID-19 Confirmed Active Dizzy spells Confirmed Active Headache Confirmed Active History of gestational hypertension Confirmed Active Non-Macedonian speaking patient Confirmed Active Social History Social History Type Response Smoking Status Never (less than 100 in lifetime) entered on: 08/10/20 Sex Patient Care team information Care Team Personnel Name: Codie Bran NP Position: [facility] PCO Associate Professional Member Role: PCP Address: Address: [address] [place] [address]- Care Team Related Persons Name: JONO WADSWORTH Address: [place] [address] Name: SYD MENDEZ Address: [place] [address] Name: MAEVE RODRIGUEZ Address: [address] Address: [address]
--- OUTSIDE RECORDS SUMMARY | 2023-10-25 10:45 | XMS_ITS | Continuity of Care Document ---
Author Organization [facility] Address [address] [place] [address]- Care Team Providers Care Senior Technical Architect Name Role Phone Yina PERRY, Codie Primary Care Physician [facility] Date[facility]s): 12/27/22 - 01/26/23 [facility] [address] [address]- Attending Physician: Greg Canales Admitting Physician: Greg Canales Referring Physician: AdmtrGreg Allergies, Adverse Reactions, Alerts No Known Allergies [...] Recorded Measles Virus Vaccine 10/05/99 Recorded Medications Cipro 500 mg oral tablet 1 tablet = 500 mg, By Mouth, Every 12 hours, for 7 days, # 14 tablet, 0 Refills, Acute 01/29/23 17:43:00 EDT, 01/22/23 17:43:00 EDT, Tablet, [facility]/pharmacy #[id number], Partial fill upon patient request if the prescription is for a schedule II opioid drug., 1... Start Date: 01/22/23 Stop Date: 01/29/23 Status: Ordered lidocaine 5% topical film 1 patch, Topically, Daily, PRN Pain , Mild, remove after 12 hours, # 13 each, 0 Refills, Maintenance, 01/16/23 16:19:00 EDT, Film, [facility]/pharmacy #[id number], Partial fill upon patient [...] opioid drug. Start Date: 05/24/22 Status: Ordered Tylenol 325 mg oral capsule 2 capsule = 650 mg, By Mouth, Every 4 hours, PRN as needed for pain, # 90 capsule, 0 Refills, Maintenance, 01/16/23 16:38:00 EDT, Capsule, [facility]/pharmacy #[id number], Partial fill upon patient request if theprescription is for a schedule II opioid drug., 166... Start Date: 01/16/23 Status: Ordered Problem List Condition Confirmation Course Effective Dates Status Health St [facility] Informant Acne Confirmed Active Dizzy spells Confirmed Active Headache Confirmed Active History of gestational hypertension Confirmed Active Non-Indian speaking patient Confirmed Active Social History Social History Type Response Smoking Status Never (less than 100 in lifetime) entered on: 08/10/20 Sex Patient Care team information Care Team Personnel Name: Codie Bran NP Position: S PCO Associate Professional Member Role: PCP Address: Address: [address] [place] [address]- Care Team Related Persons Name: JONO WADSWORTH Address: home [address] [place] [address] Name: SYD MENDEZ Address: [place] [address] Name: MAEVE RODRIGUEZ Address: [address] Address: [address]
--- OUTSIDE RECORDS SUMMARY | 2023-10-25 10:45 | XMS_ITS | Continuity of Care Document ---
Author Organization [facility] ter Address [address] [place] [address]- Care Team Providers Care Marketing Agent Name Role Phone Yina PERRY, Codie Primary Care Physician [facility] Date[facility]s): 02/13/21 - 02/13/[address] [address] Discharge Disposition: A-D/C Home Attending Physician: James Rockwell MD Admitting Physician: James Rockwell MD Referring Physician: James Rockwell MD Allergies, Adverse Reactions, Alerts Substance Reaction [...] 08/29/20 13:34:00 EDT, Route to Pharmacy Electronically, [facility] #[id number], Partial fill upon patient request if the pres... Start Date: 08/29/20 Status: Ordered ferrous sulfate 325 mg oral enteric coated tablet 325 mg, 1, tablet, By Mouth, 3 times a day, # 90 tablet, Refills 4, Tot. Refills 4, Maintenance, 11/25/20 16:25:00 EDT, Route to Pharmacy Electronically, [facility] #[id number], Partial fill upon patient request if the prescription is for a sched... Start Date: 11/25/20 Status: Ordered Multivitamins with Folic Acid 1 mg oral tablet 1 tablet, By Mouth, Daily, # 90 tablet, 3 Refills, Maintenance, 11/02/20 8:41:00 EDT, Tablet, [facility] #[id number], Partial fill upon patient request if the prescription is for a schedule II opioid drug., 1 tablet By Mouth Daily,x90 days, 163,... Start Date: 11/02/20 Stop Date: 10/28/21 Status: Ordered Tylenol 325 mg oral capsule 1 capsule = 325 mg, By Mouth, Every 4 hours, PRN Pain , Mild, # 20 capsule, 0 Refills, Acute 03/01/21 11:38:00 EDT, 01/30/21 11:37:00 EDT, Capsule, [facility] #[id number], Partial fill upon patient request if the prescription is for a schedule II... Start Date: 01/30/21 Stop Date: 03/01/21 Status: Ordered Problem List Condition Effective Dates Status Health Status Inform ant Acne(Confirmed) Active Anemia of (Confirmed) Active Dizzy spells(Confirmed) Active Gestational hypertension(Confirmed) 1 09/03/20 Active Headache(Confirmed) Active History of gestational hypertension(Confirmed) Active Non-Indian speaking patient(Confirmed) Active Right leg pain(Confirmed) Active (Confirmed) Active 1Problem added by Discern Expert Vital Signs Most recent to oldest [Reference Range]: 1 2 Weight 74.8 kg (02/13/21 9:06 AM) Oxygen Saturation [94-100 %] 100 % (02/13/21 9:17 AM) Blood Pressure [90-138/55-84 mm Hg] 111/ 76mm Hg (02/13/21 9:17 AM) Respiratory Rate [16-30 br/min] 16 br/mi n (02/13/21 9:17 AM) Temperature [96.8-100.4 DegF] 98.2 DegF (02/13/21 9:17 AM) 98.7 DegF (02/13/21 9:06 AM) Temperature Route Oral (02/13/21 9:06 AM) Weight Obtained Via Standing scale (02/13/21 9:06 AM) Social History Social History Type Response Smoking Status Never (less than 100 in lifetime) entered on: 08/10/20 Sex Female
--- OUTSIDE RECORDS SUMMARY | 2023-10-25 10:45 | XMS_ITS | Continuity of Care Document ---
Author Organization [facility] Address [address] [place] [address]- Care Team Providers Care Echocardiography Technologist Name Role Phone Codie Bran NP Primary Care Physician [facility] Date(s): 08/28/21 - 09/28/[address] [address] Attending Physician: Not on Staff, Attending MD [...] 02/16/21 8:25:00 EDT, Route to Pharmacy Electronically, [facility] #[id number], Partial fill upon patient request i... Start Date: 02/16/21 Status: Ordered aspirin 81 mg oral tablet, chewable 162 mg, 2, tablet, Chew, Daily, continue until 2 weeks , # 60 tablet, Refills 8, Tot. Refills 8, Maintenance, 08/29/20 13:34:00 EDT, Route to Pharmacy Electronically, [facility] #[id number], Partial fill upon patient request if the pres... Start Date: 08/29/20 Status: Ordered docusate sodium 100 mg oral capsule 1 capsule = 100 mg, By Mouth, 2 times a day, PRN Constipation, # 60 capsule, 0 Refills, Maintenance, 02/16/21 8:26:00 EDT, Capsule, [facility] #[id number], Partial fill upon patient request if the prescription is for a schedule II opioid drug., 1... Start Date: 02/16/21 Status: Ordered ferrous sulfate 325 mg oral enteric coated tablet 325 mg, By Mouth, 3 times a day, # 90 tablet, Refills 1, Tot. Refills 1, Maintenance, 02/16/21 8:28:00 EDT, Route to Pharmacy Electronically, [facility] #[id number], Partial fill upon patient request if the prescription is for a schedule II opioi... Start Date: 02/16/21 Status: Ordered ibuprofen 800 mg oral tablet 800 mg, 1, tablet, By Mouth, Every 8 hours, PRN, not to exceed 3200 mg/day, # 60 tablet, Refills 0,Tot. Refills 0, Maintenance, Pain , Moderate, 02/16/21 8:26:00 EDT, Route to Pharmacy Electronically, [facility] #[id number], Partial fill upon pa... Start Date: 02/16/21 Status: Ordered Multivitamins with Folic Acid 1 mg oral tablet 1 tablet, By Mouth, Daily, # 90 tablet, 3 Refills, Maintenance, 11/02/20 8:41:00 EDT, Tablet, [facility] #[id number], Partial fill upon patient request if the prescription is for a schedule II opioid drug., 1 tablet By Mouth Daily,x90 days, 163,... Start Date: 11/02/20 Stop Date: 10/28/21 Status: Ordered Problem List Condition Effective Dates Status Health Status Inform ant Acne(Confirmed) Active Anemia of (Confirmed) Active COVID-19(Confirmed) Active Dizzy spells(Confirmed) Active Headache(Confirmed) Active History of gestational hypertension(Confirmed) Active Non-Gibraltarian speaking patient(Confirmed) Active Right leg pain(Confirmed) Active (Confirmed) Active Social History Social History Type Response Smoking Status Never (less than 100 in lifetime) entered on: 08/10/20 Sex
--- OUTSIDE RECORDS SUMMARY | 2023-10-25 10:45 | XMS_ITS | Continuity of Care Document ---
Author Organization [facility] ter Address [address] [place] [address]- Care Team Providers Care Medical Asst Name Role Phone Coide Bran NP Primary Care Physician Encounter [facility] Date(s): 01/23/21 - 01/24/21 [facility] [address] [place] [address] Discharge Disposition: A-D/C Home Attending Physician: Gabbi Castro MD Admitting Physician: Gabbi Castro MD Referring Physician: Not on Staff, Referring MD Allergies, Adverse Reactions, Alerts Substance Reaction [...] 08/29/20 13:34:00 EDT, Route to Pharmacy Electronically, [facility] #[id number], Partial fill upon patient request if the pres... Start Date: 08/29/20 Status: Ordered ferrous sulfate 325 mg oral enteric coated tablet 325 mg, 1, tablet, By Mouth, 3 times a day, # 90 tablet, Refills 4, Tot. Refills 4, Maintenance, 11/25/20 16:25:00 EDT, Route to Pharmacy Electronically, [facility] #[id number], Partial fill upon patient request if the prescription is for a sched... Start Date: 11/25/20 Status: Ordered Multivitamins with Folic Acid 1 mg oral tablet 1 tablet, By Mouth, Daily, # 90 tablet, 3 Refills, Maintenance, 11/02/20 8:41:00 EDT, Tablet, [facility] #[id number], Partial fill upon patient request if the prescription is for a schedule II opioid drug., 1 tablet By Mouth Daily,x90 days, 163,... Start Date: 11/02/20 Stop Date: 10/28/21 Status: Ordered Tylenol 325 mg oral tablet 650 mg, Tablet, By Mouth, Every 4 hours, PRN for Pain , Mild, Routine, 01/23/21 23:13:00 EDT Start Date: 01/23/21 Stop Date: 02/22/21 Status: Ordered Problem List Condition Effective Dates Status Health Status Inform ant Acne(Confirmed) Active Gestational hypertension(Confirmed) 1 09/03/20 Active History of gestational hypertension(Confirmed) Active (Confirmed) Active 1Problem added by Discern Expert Vital Signs Most recent to oldest [Reference Range]: 1 2 3 Height 163 cm (01/24/21 12:13 AM) Weight 74.3 kg (01/24/21 12:13 AM) Oxygen Saturation [94-100 %] 99 % (01/24/21 11:50 AM) 100 % (01/24/21 8:44 AM) 99 % (01/24/21 8:36 AM) Pulse Rate [55-90 bpm] 89 bpm (01/24/21 12:13 AM) 89 bpm (01/23/21 10:58 PM) 104 bpm *H* (01/23/21 8:52 PM) Body Mass Index [18.5-24.99] 27.96 *H* (01/24/21 12:13 AM) Blood Pressure [90-138/55-84 mm Hg] 122/67mm Hg (01/24/21 11:50 AM) 138/79mm Hg (01/24/21 8:44 AM) 122/71mm Hg (01/24/21 8:36 AM) Respiratory Rate [16-30 br/min] 18 br/min (01/24/21 12:52 PM) 20 br/min (01/24/21 12:13 AM) 20 br/min (01/23/21 10:58 PM) Temperature [96.8-100.4 DegF] 98.7 DegF (01/24/21 11:50 AM) 98.5 DegF (01/24/21 8:28 AM) 98.6 DegF (01/24/21 12:13 AM) Mode of Delivery (Oxygen) Room air (01/24/21 12:13 AM) Room air (01/23/21 10:58 PM) Room air (01/23/21 8:52 PM) Blood pressure sites Arm, right (01/24/21 8:36 AM) Arm, right (01/24/21 8:28 AM) Arm, left (01/24/21 12:13 AM) Temperature Route Oral (01/24/21 11:50 AM) Oral (01/24/21 8:28 AM) Oral (01/24/21 12:13 AM) Dry Weight 74.3 kg (01/24/21 12:13 AM) Social History Social History Type Response Smoking Status Never (less than 100 in lifetime) entered on: 08/10/20 Sex Female
--- OUTSIDE RECORDS SUMMARY | 2023-10-25 10:45 | XMS_ITS | Continuity of Care Document ---
Author Organization [facility] Address [address] [place] [address]- Care Team Providers Care Medical Authorization Specialist Name Role Phone Yina PERRY, Codie Primary Care Physician [facility] [id number] Date(s): 05/10/20 - 06/09/[address] [address]- Attending Physician: Greg Canales Admitting Physician: AdmtrGreg [...] 03/01/99 Recorded Measles Virus Vaccine 10/05/99 Recorded Problem List Condition Effective Dates Status Health Status Inform ant Acne(Confirmed) Active Fever and chills(Confirmed) Active Social History Social History Type Response Smoking Status Never smoker; Tobacc o user in household: No; Type: Cigarettes entered on: 09/29/14 Sex Female
--- OUTSIDE RECORDS SUMMARY | 2023-10-25 10:45 | XMS_ITS | Continuity of Care Document ---
Author Organization [facility] Address [address] [place] [address]- Care Team Providers Care Trademark Affixer Name Role Phone Codie Bran NP Primary Care Physician [phone] [facility]counter [facility] Date(s): 02/13/23 - 03/15/[address] [address] Allergies, Adverse Reactions, Alerts No Known Allergies [...] 14:42:00 EDT, Powder, Route to Pharmacy Electronically, [id number], [facility]/pharmacy #[id number], 166, cm, 02/27/23 14:02:00 EDT, Height,... Start Date: 02/27/23 Status: Ordered albuterol CFC free 90 mcg/inh inhalation aerosol 2, puffs, Inhalation, Every 6 hours, PRN, # 8.5 Gm, Refills 4, Tot. Refills 4, Maintenance, 02/13/23 15:05:00 EDT, Route to Pharmacy Electronically, [id number], [facility]/pharmacy#[id number], 166, cm, 02/13/23 14:58:00 EDT, Height, 70.8... Start Date: 02/13/23 Status: Ordered albuterol-ipratropium 3 mg-0.5 mg/3 ml inhalation solution See Instructions, 3 mL Inhalation 4 times a day prn wheezing., # 90 mL, 11 Refills, Maintenance, 02/27/23 14:58:00 EDT, Solution, [facility]/pharmacy #[id number], Partial fill upon patient request if the prescription is for a schedule II opioid drug., 3 mL Inhalat... Start Date: 02/27/23 Status: Ordered benzonatate 200 mg oral capsule 1 capsule = 200 mg, By Mouth, 3 times a day, PRN as needed for cough, for 14 days, # 42 capsule, 0 Refills, Acute 03/19/23 14:51:00 EDT, 03/05/23 14:51:00 EDT, Capsule, [facility]/pharmacy #[id number], Partial fill upon patient request if the prescription is for a... Start Date: 03/05/23 Stop Date: 03/19/23 Status: Ordered fluticasone 50 mcg/inh nasal spray 1 sprays, Nares, Both, 2 times a day, # 16 Gm, 0 Refills, Maintenance, 03/05/23 14:51:00 EDT, [place]ullen, [facility]/pharmacy #[id number], Partial fill upon patient request if the prescription is for a schedule II opioid drug., 1 sprays Nares, Both 2 times a day, 166,... Start Date: 03/05/23 Status: Ordered lidocaine 5% topical film 1 patch, Topically, Daily, PRN Pain , Mild, remove after 12 hours, # 13 each, 0 Refills, Maintenance, 01/16/23 16:19:00 EDT, Film, [facility]/pharmacy #[id number], Partial fill upon patient request if [...] 02/13/23 15:07:00 EDT, Route to Pharmacy Electronically, [facility]/pharmacy #[id number], Partial fill upon patient request if the prescription is for a schedule II opioid drug... Start Date: 02/13/23 Stop Date: 08/12/23 Status: Ordered Tylenol 325 mg oral capsule 2 capsule = 650 mg, By Mouth, Every 4 hours, PRN as needed for pain, # 90 capsule, 0 Refills, Maintenance, 01/16/23 16:38:00 EDT, Capsule, [facility]/pharmacy #[id number], Partial fill upon patient request if theprescription is for a schedule II opioid drug., 166... Start Date: 01/16/23 Status: Ordered Zithromax Z-Eliseo 250 mg oral tablet 1 pack/packet, By Mouth, Once, # 6 tablet, 0 Refills, Soft Stop, 02/13/23 15:05:00 EDT, Tablet, [facility]/pharmacy #[id number], Partial fill upon patient request if the prescription is for a schedule II opioid drug., 166, cm, 02/13/23 14:58:00 EDT, Height, 70.8,... Start Date: 02/13/23 Status: Ordered Problem List Condition Confirmation Course Effective Dates Status Health St at[facility] Informant Acne Confirmed Active Dizzy spells Confirmed Active Headache Confirmed Active History of gestational hypertension Confirmed Active Non-Croatian speaking patient Confirmed Active Social History Social History Type Response Smoking Status Never (less than 100 in lifetime) entered on: 08/10/20 Sex Patient Care team information Care Team Personnel Name: Codie Bran NP Position: [facility] PCO Associate Professional Member Role: PCP Address: Address: [address] [place] [address] Care Team Related Persons Name: JONO WADSWORTH Address: home [address] [place] [address] Name: SYD MENDEZ Address: home [address] [place] [address] Name: MAEVE RODRIGUEZ Address: [address] Address: [address]
--- OUTSIDE RECORDS SUMMARY | 2023-10-25 10:45 | XMS_ITS | Continuity of Care Document ---
Author Organization [facility] Address [address] [place] [address]- Care Team Providers Care Maintenance Truck Driver Name Role Phone Yina PERRY, Codie Primary Care Physician Encounter [facility] Date(s): 11/07/22 - 12/07/[address] [address] Attending Physician: AdmGreg smith Admitting Physician: AdmtrGreg Referring Physician: Admtr, Ar8 Allergies, Adverse Reactions, Alerts No Known Allergies [...] Recorded Measles Virus Vaccine 10/05/99 Recorded Medications Liletta 52 mg intrauterine device 1 each = 52 mg, Once, inserted 04/09, 0 Refills, Maintenance, 05/24/22 7:11:00 EST, Partial fill upon patient request if the prescription is for a schedule II opioid drug. Start Date: 05/24/22 Status: Ordered Problem List Condition Confirmation Course Effective Dates Status Health St at[facility] Informant Acne Confirmed Active COVID-19 Confirmed Active Dizzy spells Confirmed Active Headache Confirmed Active History of gestational hypertension Confirmed Active Non-Chinese speaking patient Confirmed Active Social History Social History Type Response Smoking Status Never (less than 100 in lifetime) entered on: 08/10/20 Sex Patient Care team information Care Team Personnel Name: Codie Bran NP Position: S PCO Associate Professional Member Role: PCP Address: Address: [address] [place] [address]- Care Team Related Persons Name: ERMELINDA, MARIA Address: home [address] [place] [address] Name: SYD MENDEZ Address: home [address] [place] [address] Name: MAEVE RODRIGUEZ Address: [address] Address: [address]
--- OUTSIDE RECORDS SUMMARY | 2023-10-25 10:45 | XMS_ITS | Continuity of Care Document ---
Author Organization [facility] Address [address] [place] [address]- Care Team Providers Care Bargeman Name Role Phone Yina PERRY, Codie Primary Care Physician [phone] [facility]counter [facility] Date(s): 09/26/20 - 10/26/[address] [address]- Allergies, Adverse Reactions, Alerts Substance Reaction Severity [...] 08/29/20 13:34:00 EDT, Route to Pharmacy Electronically, [facility] #[id number], Partial fill upon patient request if the pres... Start Date: 08/29/20 Status: Ordered ondansetron 4 mg oral tablet, disintegrating 1 tablet = 4 mg, By Mouth, Every 8 hours, PRN Nausea & Vomiting, # 30 tablet, 1 Refills, Maintenance, 07/23/20 18:02:00 EST, Tablet, [facility] #[id number], Partial fill upon patient requestif the prescription is for a schedule II opioid drug.,... Start Date: 07/23/20 Status: Ordered Prenatabs Rx oral tablet 1 tablet, By Mouth, Daily, # 30 tablet, 10 Refills, Maintenance, 07/23/20 18:01:00 EST, Tablet, [facility] #[id number], Partial fill upon patient request if the prescription is for a schedule IIopioid drug., 1 tablet By Mouth Daily, 163, cm, /... Start Date: 07/23/20 Status: Ordered Tylenol 325 mg oral capsule 2 capsule = 650 mg, By Mouth, Every 6 hours, PRN as needed for pain, # 60 capsule, 1 Refills, Maintenance, 07/23/20 18:02:00 EST, Capsule, [facility] #[id number], Partial fill upon patient request if the prescription is for a schedule II opioid d... Start Date: 07/23/20 Status: Ordered Unisom 25 mg oral tablet 1 tablet = 25 mg, By Mouth, Daily at bedtime, PRN for sleep, # 32 tablet, 1 Refills, Maintenance, 07/23/20 18:02:00 EST, Tablet, [facility] #[id number], Partial fill upon patient request if the prescription is for a schedule II opioid drug., 163,... Start Date: 07/23/20 Status: Ordered Problem List Condition Effective Dates Status Health Status Inform ant Acne(Confirmed) Active Gestational hypertension(Confirmed) 1 09/03/20 Active History of gestational hypertension(Confirmed) Active (Confirmed) Active 1Problem added by Discern Expert Social History Social History Type Response Smoking Status Never (less than 100 in lifetime) entered on: 08/10/20 Sex Female
--- OUTSIDE RECORDS SUMMARY | 2023-10-25 10:46 | XMS_ITS | Continuity of Care Document ---
Author Organization [facility] Address [address] [place] [address]- Care Team Providers Care Inspecting Engineer Name Role Phone Amilcar REED, Juan Pizano Primary Care Physician [facility]): 12[facility]19[facility]20 - 01/18/21 [facility] [address] [address] Allergies, Adverse Reactions, Alerts Substance [...] 08/29/20 13:34:00 EDT, Route to Pharmacy Electronically, [facility] #[id number], Partial fill upon patient request if the pres... Start Date: 08/29/20 Status: Ordered ferrous sulfate 325 mg oral enteric coated tablet 325 mg, 1, tablet, By Mouth, 3 times a day, # 90 tablet, Refills 4, Tot. Refills 4, Maintenance, 11/25/20 16:25:00 EDT, Route to Pharmacy Electronically, [facility] #[id number], Partial fill upon patient request if the prescription is for a sched... Start Date: 11/25/20 Status: Ordered Multivitamins with Folic Acid 1 mg oral tablet 1 tablet, By Mouth, Daily, # 90 tablet, 3 Refills, Maintenance, 11/02/20 8:41:00 EDT, Tablet, [facility] #[id number], Partial fill upon patient request if the [...]
--- OUTSIDE RECORDS SUMMARY | 2023-10-25 10:46 | XMS_ITS | Continuity of Care Document ---
Author Organization [facility] Address [address] [place] [address]- Care Team Providers Care Giver Name Role Phone Codie Bran NP Primary Care Physician [phone] [facility] Date[facility]s): 08/29/21 - 09/28/[address] [address]- Attending Physician: Greg Canales Admitting Physician: Greg Canales Referring Physician: Greg Canales Allergies, Adverse Reactions, Alerts No Known Allergies [...] 02/16/21 8:25:00 EDT, Route to Pharmacy Electronically, [facility] #[id number], Partial fill upon patient request i... Start Date: 02/16/21 Status: Ordered aspirin 81 mg oral tablet, chewable 162 mg, 2, tablet, Chew, Daily, continue until 2 weeks , # 60 tablet, Refills 8, Tot. Refills 8, Maintenance, 08/29/20 13:34:00 EDT, Route to Pharmacy Electronically, [facility] #[id number], Partial fill upon patient request if the pres... Start Date: 08/29/20 Status: Ordered docusate sodium 100 mg oral capsule 1 capsule = 100 mg, By Mouth, 2 times a day, PRN Constipation, # 60 capsule, 0 Refills, Maintenance, 02/16/21 8:26:00 EDT, Capsule, [facility] #[id number], Partial fill upon patient request if the prescription is for a schedule II opioid drug., 1... Start Date: 02/16/21 Status: Ordered ferrous sulfate 325 mg oral enteric coated tablet 325 mg, By Mouth, 3 times a day, # 90 tablet, Refills 1, Tot. Refills 1, Maintenance, 02/16/21 8:28:00 EDT, Route to Pharmacy Electronically, [facility] #[id number], Partial fill upon patient request if the prescription is for a schedule II opioi... Start Date: 02/16/21 Status: Ordered ibuprofen 800 mg oral tablet 800 mg, 1, tablet, By Mouth, Every 8 hours, PRN, not to exceed 3200 mg/day, # 60 tablet, Refills 0,Tot. Refills 0, Maintenance, Pain , Moderate, 02/16/21 8:26:00 EDT, Route to Pharmacy Electronically, [facility] #[id number], Partial fill upon pa... Start Date: 02/16/21 Status: Ordered Multivitamins with Folic Acid 1 mg oral tablet 1 tablet, By Mouth, Daily, # 90 tablet, 3 Refills, Maintenance, 11/02/20 8:41:00 EDT, Tablet, [facility] #[id number], Partial fill upon patient request if the prescription is for a schedule II opioid drug., 1 tablet By Mouth Daily,x90 days, 163,... Start Date: 11/02/20 Stop Date: 10/28/21 Status: Ordered Problem List Condition Effective Dates Status Health Status Inform ant Acne(Confirmed) Active Anemia of (Confirmed) Active COVID-19(Confirmed) Active Dizzy spells(Confirmed) Active Headache(Confirmed) Active History of gestational hypertension(Confirmed) Active Non-Sierra Leonean speaking patient(Confirmed) Active Right leg pain(Confirmed) Active (Confirmed) Active Social History Social History Type Response Smoking Status Never (less than 100 in lifetime) entered on: 08/10/20 Sex
--- OUTSIDE RECORDS SUMMARY | 2023-10-25 10:46 | XMS_ITS | Continuity of Care Document ---
Author Organization [facility] Address [address] [place] [address]- Care Team Providers Care Stud Master/Mistress Name Role Phone Yina PERRY, Codie Primary Care Physician [phone] [facility] Date[facility]s): 12/01/21 - 12/31/21 [facility] [address] [address]- Allergies, Adverse Reactions, Alerts No Known Allergies [...] 0 Refills, Maintenance, 12/29/21 15:49:00 EDT, Lozenge, [facility]/pharmacy #[id number], Partial fill upon patient request if the prescription is for a schedule II opioid drug., 1 lozenge By Mouth... Start Date: 12/29/21 Status: Ordered ibuprofen 600 mg oral tablet 600 mg, 1, tablet, By Mouth, Every 6 hours, PRN, # 20 tablet, Refills 0, Tot. Refills 0, Maintenance, Pain , Moderate, 12/29/21 15:51:00 EDT, Route to Pharmacy Electronically, [facility]/pharmacy #[id number], Partial fill upon patient request if the prescription i... Start Date: 12/29/21 Status: Ordered Multivitamins with Folic Acid 1 mg oral tablet 1 tablet, By Mouth, Daily, # 90 tablet, 3 Refills, Maintenance, 11/28/21 13:23:00 EDT, Tablet, [facility] #[id number], Partial fill upon patient request if the [...] Refills, Maintenance, 12/29/21 15:49:00 EDT, ER Tablet, [facility]/pharmacy #[id number], Partial fill upon patient request if the prescription is for a schedule II opioid drug.,... Start Date: 12/29/21 Status: Ordered Problem List Condition Effective Dates Status Health Status Inform ant Acne(Confirmed) Active COVID-19(Confirmed) Active Dizzy spells(Confirmed) Active Headache(Confirmed) Active History of gestational hypertension(Confirmed) Active Non-Romanian speaking patient(Confirmed) Active Social History Social History Type Response Smoking Status Never (less than 100 in lifetime) entered on: 08/10/20 Sex
--- OUTSIDE RECORDS SUMMARY | 2023-10-25 10:46 | XMS_ITS | Continuity of Care Document ---
Author Organization [facility] Address [address] [place] [address]- Care Team Providers Care Mobile Unit Assistant Name Role Phone iYna PERRY, Codie Primary Care Physician [facility] Date(s): 07/25/20 - 08/25/20 [facility] [address] [address] Attending Physician: Not on Staff, Attending [...] 08/10/20 11:50:00 EDT, Route to Pharmacy Electronically, [facility] #[id number], Partial fill upon patient request if the pres... Start Date: 08/10/20 Status: Ordered ondansetron 4 mg oral tablet, disintegrating 1 tablet = 4 mg, By Mouth, Every 8 hours, PRN Nausea & Vomiting, # 30 tablet, 1 Refills, Maintenance, 07/23/20 18:02:00 EST, Tablet, [facility] #[id number], Partial fill upon patient requestif the prescription is for a schedule II opioid drug.,... Start Date: 07/23/20 Status: Ordered Prenatabs Rx oral tablet 1 tablet, By Mouth, Daily, # 30 tablet, 10 Refills, Maintenance, 07/23/20 18:01:00 EST, Tablet, [facility] #[id number], Partial fill upon patient request if the prescription is for a schedule IIopioid drug., 1 tablet By Mouth Daily, 163, cm, /... Start Date: 07/23/20 Status: Ordered Tylenol 325 mg oral capsule 2 capsule = 650 mg, By Mouth, Every 6 hours, PRN as needed for pain, # 60 capsule, 1 Refills, Maintenance, 07/23/20 18:02:00 EST, Capsule, [facility] #[id number], Partial fill upon patient request if the prescription is for a schedule II opioid d... Start Date: 07/23/20 Status: Ordered Unisom 25 mg oral tablet 1 tablet = 25 mg, By Mouth, Daily at bedtime, PRN for sleep, # 32 tablet, 1 Refills, Maintenance, 07/23/20 18:02:00 EST, Tablet, [facility] #[id number], Partial fill upon patient request if the [...]
--- OUTSIDE RECORDS SUMMARY | 2023-10-25 10:46 | XMS_ITS | Continuity of Care Document ---
Author Organization [facility] Address [address] [place] [address]- Care Team Providers Care Administrative Accountant Name Role Phone Yina PERRY, Codie Primary Care Physician Encounter [facility] Date(s): 06/17/23 - 08/28/[address] [address] Attending Physician: Not on Staff, Attending MD Allergies, Adverse Reactions, Alerts No Known Allergies Immunizations Given and Recorded Vaccine Date Status Refusal Reason influenza virus vaccine, inactivated 03/06/23 Singh rded influenza virus vaccine, inactivated 04/04/22 Singh rded influenza virus vaccine, inactivated 08/08/21 Singh rded influenza virus vaccine, inactivated 02/26/20 Singh rded influenza virus vaccine, inactivated 06/10/19 Give n influenza virus vaccine, inactivated 05/28/17 Give n influenza virus vaccine, inactivated 03/22/16 Give n influenza virus vaccine, inactivated 03/03/15 Give n influenza virus vaccine, inactivated 07/14/14 Give n influenza virus vaccine, inactivated 06/08/13 Singh rded SARS-CoV-2 mRNA ([id number]) vax 06/27/21 Recorded SARS-CoV-2 (COVID-19) mRNA BNT-162b2 vac 06/01/21 Recorded tetanus/diphtheria/pertussis, acel(Tdap) 11/23/20 Given tetanus/diphtheria/pertussis, acel(Tdap) 05/28/17 Given tetanus/diphtheria/pertussis, acel(Tdap) 09/18/13 Recorded Human Papillomavirus Vaccine 2/1/16 Given Human Papillomavirus Vaccine 03/03/15 Given Human [...] 14:42:00 EDT, Powder, Route to Pharmacy Electronically, [id number], [facility]/pharmacy #[id number], 166, cm, 02/27/23 14:02:00 EDT, Height,... Start Date: 02/27/23 Status: Ordered albuterol CFC free 90 mcg/inh inhalation aerosol 2, puffs, Inhalation, Every 6 hours, PRN, # 8.5 Gm, Refills 4, Tot. Refills 4, Maintenance, 02/13/23 15:05:00 EDT, Route to Pharmacy Electronically, [id number], [facility]/pharmacy#[id number], 166, cm, 02/13/23 14:58:00 EDT, Height, 70.8... Start Date: 02/13/23 Status: Ordered albuterol-ipratropium 3 mg-0.5 mg/3 ml inhalation solution See Instructions, 3 mL Inhalation 4 times a day prn wheezing., # 90 mL, 11 Refills, Maintenance, 02/27/23 14:58:00 EDT, Solution, [facility]/pharmacy #[id number], Partial fill upon patient request if the prescription is for a schedule II opioid drug., 3 mL Inhalat... Start Date: 02/27/23 Status: Ordered fluticasone 50 mcg/inh nasal spray 1 sprays, Nares, Both, 2 times a day, # 16 Gm, 0 Refills, Maintenance, 03/05/23 14:51:00 EDT, [place], [facility] #[id number], Partial fill upon patient request if the prescription is for a schedule II opioid drug., 1 sprays Nares, Both 2 times a day, 166,... Start Date: 03/05/23 Status: Ordered lidocaine 5% topical film 1 patch, Topically, Daily, PRN Pain , Mild, remove after 12 hours, # 13 each, 0 Refills, Maintenance, 01/16/23 16:19:00 EDT, Film, [facility]/pharmacy #[id number], Partial fill upon patient request [...] 02/13/23 15:07:00 EDT, Route to Pharmacy Electronically, [facility]/pharmacy #[id number], Partial fill upon patient request if the prescription is for a schedule II opioid drug... Start Date: 02/13/23 Stop Date: 08/12/23 Status: Ordered Tylenol 325 mg oral capsule 2 capsule = 650 mg, By Mouth, Every 4 hours, PRN as needed for pain, # 90 capsule, 0 Refills, Maintenance, 01/16/23 16:38:00 EDT, Capsule, [facility]/pharmacy #[id number], Partial fill upon patient request if theprescription is for a schedule II opioid drug., 166... Start Date: 01/16/23 Status: Ordered Zithromax Z-Eliseo 250 mg oral tablet 1 pack/packet, By Mouth, Once, # 6 tablet, 0 Refills, Soft Stop, 02/13/23 15:05:00 EDT, Tablet, [facility]/pharmacy #[id number], Partial fill upon patient request if the prescription is for a schedule II opioid drug., 166, cm, 02/13/23 14:58:00 EDT, Height, 70.8,... Start Date: 02/13/23 Status: Ordered Problem List Condition Confirmation Course Effective Dates Status Health St atus Informant Acne Confirmed Active Dizzy spells Confirmed Active Headache Confirmed Active History of gestational hypertension Confirmed Active Non-Portuguese speaking patient Confirmed Active Social History Social History Type Response Smoking Status Never (less than 100 in lifetime) entered on: 08/10/20 Sex Patient Care team information Care Team Personnel Name: Codie Bran NP Position: [facility] PCO Associate Professional Member Role: PCP Address: Address: [address] [place] [address]- Care Team Related Persons Name: JONO WADSWORTH Address: home [address] [place] [address] Name: SYD MENDEZ Address: [address] [address] Name: MAEVE RODRIGUEZ Address: [address] Address: [address] [address] Name: CHAGO CUENCA Address: [address] [address]
--- OUTSIDE RECORDS SUMMARY | 2023-10-25 10:46 | XMS_ITS | Continuity of Care Document ---
Author Organization [facility] Address [address] [place] [address]- Care Team Providers Care Concept Artist Name Role Phone Yina PERRY, Codie Primary Care Physician [phone] Encounter [facility] Date(s): 01/08/23 - 02/07/[address] [address] Allergies, Adverse Reactions, Alerts No Known Allergies [...] vaccine 09/18/13 Recorded hepatitis B pediatric vaccine 1/20/14 Recorded hepatitis B pediatric vaccine 01/31/99 Recorded Menactra (oldterm) 06/08/13 Recorded Poliovirus Vaccine, Inactivated 01/06/03 Recorded Poliovirus Vaccine, Inactivated 07/03/99 Recorded Poliovirus Vaccine, Inactivated 05/03/99 Recorded Poliovirus Vaccine, Inactivated 03/01/99 Recorded diphtheria/tetanus/pertussis, acel(DTaP) 01/06/03 Recorded diphtheria/tetanus/pertussis, acel(DTaP) 07/03/99 Recorded diphtheria/tetanus/pertussis, acel(DTaP) 05/03/99 Recorded diphtheria/tetanus/pertussis, acel(DTaP) 03/01/99 Recorded Measles Virus Vaccine 10/05/99 Recorded Medications lidocaine 5% topical film 1 patch, Topically, Daily, PRN Pain , Mild, remove after 12 hours, # 13 each, 0 Refills, Maintenance, 01/16/23 16:19:00 EDT, Film, [id number], Partial fill upon patient request [...] Active History of gestational hypertension Confirmed Active Non-Trinidadian speaking patient Confirmed Active Social History Social History Type Response Smoking Status Never (less than 100 in lifetime) entered on: 08/10/20 Sex Patient Care team information Care Team Personnel Name: Codie Bran NP Position: [facility]O Associate Professional Member Role: PCP Address: Address: [address] [place] [address]- Care Team Related Persons Name: JONO WADSWORTH Address: [address] [address] Name: SYD MENDEZ Address: [address] [address] Name: MAEVE RODRIGUEZ Address: [address] Address: [address]
--- OUTSIDE RECORDS SUMMARY | 2023-10-25 10:46 | XMS_ITS | Continuity of Care Document ---
Author Organization [facility] Address [address] [place] [address]- Care Team Providers Care Grape Crusher Name Role Phone Codie Bran NP Primary Care Physician [facility] Date(s): 05/11/19 - 05/21/[address] [address]- [facility] Attending Physician: AdmGreg smith Admitting Physician: AdmtrGreg Referring Physician: Admtr, Ar8 Allergies, Adverse Reactions, Alerts Substance Reaction Severity Status NKA Active Immunizations Given and Recorded Vaccine Date Status Refusal Reason influenza virus vaccine, inactivated 05/28/17 Give n [...] Recorded Measles Virus Vaccine 10/05/99 Recorded Medications Apri 0.15 mg-0.03 mg oral tablet 1 tablet, By Mouth, Daily, # 28 tablet, 11 Refills, Maintenance, 10/03/17 14:40:29 EDT, Tablet, 1 tablet By Mouth Daily,x28 days Start Date: 10/03/17 Stop Date: 09/04/18 Status: Ordered Problem List Condition Effective Dates Status Health Status Inform ant Acne(Confirmed) Active Contraception(Confirmed) Active Distressed about housing issues(Confirmed) Active Social History Social History Type Response Smoking Status Never smoker; Tobacc o user in household: No; Type: Cigarettes entered on: 09/29/14 Sex
--- OUTSIDE RECORDS SUMMARY | 2023-10-25 10:46 | XMS_ITS | Continuity of Care Document ---
Author Organization [facility] Address [address] [place] [address]- Care Team Providers Care [place] Redevelopment Specialist Name Role Phone Yina PERRY, Codie Primary Care Physician [facility]counter [facility] Date(s): 10/12/22 - 11/29/[address] [address]- Attending Physician: Susan Gillespie MD Admitting Physician: Susan Gillespie MD Allergies, Adverse Reactions, Alerts No Known [...] Active History of gestational hypertension Confirmed Active Non-South Korean speaking patient Confirmed Active Social History Social History Type Response Smoking Status Never (less than 100 in lifetime) entered on: 08/10/20 Sex Patient Care team information Care Team Personnel Name: Codie Bran NP Position: [facility] PCO Associate Professional Member Role: PCP Address: Address: [address] [place] [address]- Care Team Related Persons Name: JONO WADSWORTH Address: home [address] [place] [address] Name: SYD MENDEZ Address: home [address] [place] [address] Name: MAEVE RODRIGUEZ Address: [address] Address: [address]
--- OUTSIDE RECORDS SUMMARY | 2023-10-25 10:46 | XMS_ITS | Continuity of Care Document ---
Author Organization [facility] Address [address] [place] [address]- Care Team Providers Care Quality Control Microbiologist Name Role Phone Amilcar REED, Juan Pizano Primary Care Physician [facility] Date(s): 11/23/20 - 12/23/20 [facility] [address] [email or web address]] Allergies, Adverse Reactions, Alerts Substance Reaction Severity [...] 08/29/20 13:34:00 EDT, Route to Pharmacy Electronically, [facility] #[id number], Partial fill upon patient request if the pres... Start Date: 08/29/20 Status: Ordered ferrous sulfate 325 mg oral enteric coated tablet 325 mg, 1, tablet, By Mouth, 3 times a day, # 90 tablet, Refills 4, Tot. Refills 4, Maintenance, 11/25/20 16:25:00 EDT, Route to Pharmacy Electronically, [facility] #[id number], Partial fill upon patient request if the prescription is for a sched... Start Date: 11/25/20 Status: Ordered Multivitamins with Folic Acid 1 mg oral tablet 1 tablet, By Mouth, Daily, # 90 tablet, 3 Refills, Maintenance, 11/02/20 8:41:00 EDT, Tablet, [facility] #[id number], Partial fill upon patient request if the prescription is for a schedule II opioid drug., 1 tablet By Mouth Daily,x90 days, 163,... Start Date: 11/02/20 Stop Date: 10/28/21 Status: Ordered Vitamin B6 Daily, 0 Refills, Maintenance, 12/07/20 14:44:00 EDT, Partial fill upon patient request if the prescription is for a schedule II opioid drug. Start Date: 12/07/20 Status: Ordered Problem List Condition Effective Dates Status Health Status Inform ant Acne(Confirmed) Active Gestational hypertension(Confirmed) 1 09/03/20 Active History of gestational hypertension(Confirmed) Active (Confirmed) Active 1Problem added by Discern Expert Social History Social History Type Response Smoking Status Never (less than 100 in lifetime) entered on: 08/10/20 Sex Female
--- OUTSIDE RECORDS SUMMARY | 2023-10-25 10:46 | XMS_ITS | Continuity of Care Document ---
Author Organization [facility] Address [address] [place] [address]- Care Team Providers Care Wrecking Supervisor Name Role Phone Yina PERRY, Codie Primary Care Physician [phone] Encounter [facility] Date(s): 08/25/21 - 09/24/[address] [address] Attending Physician: AdmGreg smith Admitting Physician: AdmtrGreg [...] 02/16/21 8:25:00 EDT, Route to Pharmacy Electronically, [facility] #[id number], Partial fill upon patient request i... Start Date: 02/16/21 Status: Ordered aspirin 81 mg oral tablet, chewable 162 mg, 2, tablet, Chew, Daily, continue until 2 weeks , # 60 tablet, Refills 8, Tot. Refills 8, Maintenance, 08/29/20 13:34:00 EDT, Route to Pharmacy Electronically, [facility] #[id number], Partial fill upon patient request if the pres... Start Date: 08/29/20 Status: Ordered docusate sodium 100 mg oral capsule 1 capsule = 100 mg, By Mouth, 2 times a day, PRN Constipation, # 60 capsule, 0 Refills, Maintenance, 02/16/21 8:26:00 EDT, Capsule, [facility] #[id number], Partial fill upon patient request if the prescription is for a schedule II opioid drug., 1... Start Date: 02/16/21 Status: Ordered ferrous sulfate 325 mg oral enteric coated tablet 325 mg, By Mouth, 3 times a day, # 90 tablet, Refills 1, Tot. Refills 1, Maintenance, 02/16/21 8:28:00 EDT, Route to Pharmacy Electronically, [facility] #[id number], Partial fill upon patient request if the prescription is for a schedule II opioi... Start Date: 02/16/21 Status: Ordered ibuprofen 800 mg oral tablet 800 mg, 1, tablet, By Mouth, Every 8 hours, PRN, not to exceed 3200 mg/day, # 60 tablet, Refills 0,Tot. Refills 0, Maintenance, Pain , Moderate, 02/16/21 8:26:00 EDT, Route to Pharmacy Electronically, [facility] #[id number], Partial fill upon pa... Start Date: 02/16/21 Status: Ordered Multivitamins with Folic Acid 1 mg oral tablet 1 tablet, By Mouth, Daily, # 90 tablet, 3 Refills, Maintenance, 11/02/20 8:41:00 EDT, Tablet, [facility] #[id number], Partial fill upon patient request if the prescription is for a schedule II opioid drug., 1 tablet By Mouth Daily,x90 days, 163,... Start Date: 11/02/20 Stop Date: 10/28/21 Status: Ordered Problem List Condition Effective Dates Status Health Status Inform ant Acne(Confirmed) Active Anemia of (Confirmed) Active COVID-19(Confirmed) Active Dizzy spells(Confirmed) Active Headache(Confirmed) Active History of gestational hypertension(Confirmed) Active Non-Botswanan speaking patient(Confirmed) Active Right leg pain(Confirmed) Active (Confirmed) Active Social History Social History Type Response Smoking Status Never (less than 100 in lifetime) entered on: 08/10/20 Sex
--- OUTSIDE RECORDS SUMMARY | 2023-10-25 10:46 | XMS_ITS | Continuity of Care Document ---
Author Organization [facility] Address [address] [place] [address]- Care Team Providers Care Assistant Signal Maintainer Name Role Phone Yina PERRY, Codie Primary Care Physician [phone] [facility] 03[facility]23 - 04/04/[address] [address] Allergies, Adverse Reactions, Alerts No Known [...] vaccine, inactivated 06/08/13 Singh rded SARS-CoV-2 mRNA (danrzzy-apuf-nxdor) vax 06/27/21 Recorded SARS-CoV-2 (COVID-19) mRNA BNT-162b2 [...] 14:42:00 EDT, Powder, Route to Pharmacy Electronically, [id number], [facility]/pharmacy #[id number], 166, cm, 02/27/23 14:02:00 EDT, Height,... Start Date: 02/27/23 Status: Ordered albuterol CFC free 90 mcg/inh inhalation aerosol 2, puffs, Inhalation, Every 6 hours, PRN, # 8.5 Gm, Refills 4, Tot. Refills 4, Maintenance, 02/13/23 15:05:00 EDT, Route to Pharmacy Electronically, [id number], [facility]/pharmacy#[id number], 166, cm, 02/13/23 14:58:00 EDT, Height, 70.8... Start Date: 02/13/23 Status: Ordered albuterol-ipratropium 3 mg-0.5 mg/3 ml inhalation solution See Instructions, 3 mL Inhalation 4 times a day prn wheezing., # 90 mL, 11 Refills, Maintenance, 02/27/23 14:58:00 EDT, Solution, [facility]/pharmacy #[id number], Partial fill upon patient request if the prescription is for a schedule II opioid drug., 3 mL Inhalat... Start Date: 02/27/23 Status: Ordered fluticasone 50 mcg/inh nasal spray 1 sprays, Nares, Both, 2 times a day, # 16 Gm, 0 Refills, Maintenance, 03/05/23 14:51:00 EDT, [place], [facility]/pharmacy #[id number], Partial fill upon patient request if the prescription is for a schedule II opioid drug., 1 sprays Nares, Both 2 times a day, 166,... Start Date: 03/05/23 Status: Ordered lidocaine 5% topical film 1 patch, Topically, Daily, PRN Pain , Mild, remove after 12 hours, # 13 each, 0 Refills, Maintenance, 01/16/23 16:19:00 EDT, Film, [facility]/pharmacy #[id number], Partial fill upon patient [...] 02/13/23 15:07:00 EDT, Route to Pharmacy Electronically, [facility]/pharmacy #[id number], Partial fill upon patient [...] Refills, Soft Stop, 02/13/23 15:05:00 EDT, Tablet, [facility]acy [id number], Partial fill upon patient request if the prescription is for a schedule II opioid drug., 166, cm, 02/13/23 14:58:00 EDT, Height, 70.8,... Start Date: 02/13/23 Status: Ordered Problem List Condition Confirmation Course Effective Dates Status Health St atus Informant Acne Confirmed Active Dizzy spells Confirmed Active Headache Confirmed Active History of gestational hypertension Confirmed Active Non-Belarusian speaking patient Confirmed Active Social History Social History Type Response Smoking Status Never (less than 100 in lifetime) entered on: 08/10/20 Sex Patient Care team information Care Team Personnel Name: Codie Bran NP Position: [facility] Associate Professional Member Role: PCP Address: Address: [address] [place] [address]- Care Team Related Persons Name: JONO WADSWORTH Address: home [address] [place] [address] Name: SYD MENDEZ Address: home [address] [place] [address] Name: MAEVE RODRIGUEZ Address: [address] Address: [address]
--- OUTSIDE RECORDS SUMMARY | 2023-10-25 10:46 | XMS_ITS | Continuity of Care Document ---
Author Organization [facility] Address [address] [place] [address]- Care Team Providers Care Cooling Tower Operator Name Role Phone Amilcar REED, Juan Pizano Primary Care Physician [facility] - 12/17/[address] [address] Attending Physician: Jewell Figueredo MD Admitting Physician: Jewell Figueredo MD Referring Physician: Sruthi Carpenter NP Allergies, Adverse Reactions, Alerts Substance Reaction Severity [...] 08/29/20 13:34:00 EDT, Route to Pharmacy Electronically, [facility] #[id number], Partial fill upon patient request if the pres... Start Date: 08/29/20 Status: Ordered ferrous sulfate 325 mg oral enteric coated tablet 325 mg, 1, tablet, By Mouth, 3 times a day, # 90 tablet, Refills 4, Tot. Refills 4, Maintenance, 11/25/20 16:25:00 EDT, Route to Pharmacy Electronically, [facility] #[id number], Partial fill upon patient request if the prescription is for a sched... Start Date: 11/25/20 Status: Ordered Multivitamins with Folic Acid 1 mg oral tablet 1 tablet, By Mouth, Daily, # 90 tablet, 3 Refills, Maintenance, 11/02/20 8:41:00 EDT, Tablet, [facility] #[id number], Partial fill upon patient request if the [...]
--- OUTSIDE RECORDS SUMMARY | 2023-10-25 10:46 | XMS_ITS | Continuity of Care Document ---
Author Organization [facility] Address [address] [place] [address]- Care Team Providers Care Bottom Loader Name Role Phone Amilcar REDE, Juan Pizano Primary Care Physician Encounter [facility] Date(s): 01/12/21 - 01/13/[address] [address] Discharge Disposition: A-D/C Home Attending Physician: Meaghan Roth MD Admitting Physician: Meaghan Roth MD Referring Physician: Meaghan Roth MD Allergies, Adverse Reactions, Alerts Substance Reaction [...] 08/29/20 13:34:00 EDT, Route to Pharmacy Electronically, [facility] #[id number], Partial fill upon patient request if the pres... Start Date: 08/29/20 Status: Ordered ferrous sulfate 325 mg oral enteric coated tablet 325 mg, 1, tablet, By Mouth, 3 times a day, # 90 tablet, Refills 4, Tot. Refills 4, Maintenance, 11/25/20 16:25:00 EDT, Route to Pharmacy Electronically, [facility] #[id number], Partial fill upon patient request if the prescription is for a sched... Start Date: 11/25/20 Status: Ordered Multivitamins with Folic Acid 1 mg oral tablet 1 tablet, By Mouth, Daily, # 90 tablet, 3 Refills, Maintenance, 11/02/20 8:41:00 EDT, Tablet, [facility] #[id number], Partial fill upon patient request if the prescription is for a schedule II opioid drug., 1 tablet By Mouth Daily,x90 days, 163,... Start Date: 11/02/20 Stop Date: 10/28/21 Status: Ordered Problem List Condition Effective Dates Status Health Status Inform ant Acne(Confirmed) Active Gestational hypertension(Confirmed) 1 09/03/20 Active History of gestational hypertension(Confirmed) Active (Confirmed) Active 1Problem added by Discern Expert Results Orders for Microbiology Reports Name Date Urine Culture (URINE CULTURE) 01/12/21 Microbiology Reports TEST:Urine Culture STATUS:Unauthenticated BODY SITE: SOURCE:URINE COLLECTED DATE/TIME:01/12/21 10:26 PM Urine Culture SPECIMEN DESCRIPTION : URINE CLEAN CATCH/MIDSTREAM SPECIAL REQUESTS : NONE Reflexed from [id number] REPORT STATUS : PRELIMINARY REPORT Vital Signs Most recent to oldest [Reference Range]: 1 2 Weight 72.8 kg (01/12/21 7:45 PM) Oxygen Saturation [94-100 %] 100 % (01/12/21 8:54 PM) Pulse Rate [55-90 bpm] 86 bpm (01/12/21 7:45 PM) Blood Pressure [90-138/55-84 mm Hg] 119/ 67mm Hg (01/12/21 8:54 PM) 120/77mm Hg (01/12/21 7:45 PM) Respiratory Rate [16-30 br/min] 16 br/mi n (01/12/21 7:45 PM) Temperature [96.8-100.4 DegF] 98.1 DegF (01/12/21 7:45 PM) Blood pressure sites Arm, right 1 (01/12/21 7:45 PM) Temperature Route Oral (01/12/21 7:45 PM) Dry Weight 72.8 kg (01/12/21 7:45 PM) Weight Obtained Via Standing scale (01/12/21 7:45 PM) Dry Weight Obtained Via Standing scale (01/12/21 7:45 PM) 1Result Comment: 26cm Social History Social History Type Response Smoking Status Never (less than 100 in lifetime) entered on: 08/10/20 Sex Female
--- OUTSIDE RECORDS SUMMARY | 2023-10-25 10:46 | XMS_ITS | Continuity of Care Document ---
Author Organization [facility] Address [address] [place] [address]- Care Team Providers Care Dairy Manager Name Role Phone Yina PERRY, Codie Primary Care Physician [facility]): 03/27/19 - 07/11/19 [facility] [address] [address]- [facility] Attending Physician: Not on Staff, Attending MD [...] 06/12/19 23:33:00 EST, Route to Pharmacy Electronically, [facility] #[id number], 163, cm, 06/12/19 20:18:00 EST, Height Start Date: 06/12/19 Status: Ordered Tylenol 325 mg oral tablet 325 mg, 1, tablet, By Mouth, Every 4 hours, PRN, # 60 tablet, Refills 0, Tot. Refills 0, Maintenance, for pain, 06/12/19 23:33:00 EST, Route to Pharmacy Electronically, [facility] #[id number], 163, cm, 06/12/19 20:18:00 EST, Height Start Date: 06/12/19 Status: Ordered Problem List Condition Effective Dates Status Health Status Inform ant Acne(Confirmed) Active Contraception(Confirmed) Active Distressed about housing issues(Confirmed) Active Positive test(Confirmed) Active Social History Social History Type Response Smoking Status Never smoker; Tobacc o user in household: No; Type: Cigarettes entered on: 09/29/14 Sex
--- OUTSIDE RECORDS SUMMARY | 2023-10-25 10:46 | XMS_ITS | Continuity of Care Document ---
Author Organization [facility] Address [address] [place] [address]- Care Team Providers Care Skeiner Name Role Phone Codie Bran NP Primary Care Physician [facility] Date[facility]s): 11/27/21 - 12/27/[address] [address]- Allergies, Adverse Reactions, Alerts No Known Allergies [...] 3 Refills, Maintenance, 11/28/21 13:23:00 EDT, Tablet, [facility] #[id number], Partial fill upon patient request if the prescription is for a schedule II opioid drug., 1 tablet By Mouth Daily,x90 days, 159,... Start Date: 11/28/21 Stop Date: 11/23/22 Status: Ordered Problem List Condition Effective Dates Status Health Status Inform ant Acne(Confirmed) Active COVID-19(Confirmed) Active Dizzy spells(Confirmed) Active Headache(Confirmed) Active History of gestational hypertension(Confirmed) Active Non-Malawian speaking patient(Confirmed) Active Social History Social History Type Response Smoking Status Never (less than 100 in lifetime) entered on: 08/10/20 Sex
--- OUTSIDE RECORDS SUMMARY | 2023-10-25 10:46 | XMS_ITS | Continuity of Care Document ---
Author Organization [facility] Address [address] [place] [address]- Care Team Providers Care Change Management Director Name Role Phone Yina PERRY, Codie Primary Care Physician [facility]s): 05/17/21 - 07/20/[address] [address] Attending Physician: Not on Staff, [...] 02/16/21 8:25:00 EDT, Route to Pharmacy Electronically, [facility] #[id number], Partial fill upon patient request i... Start Date: 02/16/21 Status: Ordered aspirin 81 mg oral tablet, chewable 162 mg, 2, tablet, Chew, Daily, continue until 2 weeks , # 60 tablet, Refills 8, Tot. Refills 8, Maintenance, 08/29/20 13:34:00 EDT, Route to Pharmacy Electronically, [facility] #[id number], Partial fill upon patient request if the pres... Start Date: 08/29/20 Status: Ordered docusate sodium 100 mg oral capsule 1 capsule = 100 mg, By Mouth, 2 times a day, PRN Constipation, # 60 capsule, 0 Refills, Maintenance, 02/16/21 8:26:00 EDT, Capsule, [facility] #[id number], Partial fill upon patient request if the prescription is for a schedule II opioid drug., 1... Start Date: 02/16/21 Status: Ordered ferrous sulfate 325 mg oral enteric coated tablet 325 mg, By Mouth, 3 times a day, # 90 tablet, Refills 1, Tot. Refills 1, Maintenance, 02/16/21 8:28:00 EDT, Route to Pharmacy Electronically, [facility] #[id number], Partial fill upon patient request if the prescription is for a schedule II opioi... Start Date: 02/16/21 Status: Ordered ibuprofen 800 mg oral tablet 800 mg, 1, tablet, By Mouth, Every 8 hours, PRN, not to exceed 3200 mg/day, # 60 tablet, Refills 0,Tot. Refills 0, Maintenance, Pain , Moderate, 02/16/21 8:26:00 EDT, Route to Pharmacy Electronically, [facility] #[id number], Partial fill upon pa... Start Date: 02/16/21 Status: Ordered Multivitamins with Folic Acid 1 mg oral tablet 1 tablet, By Mouth, Daily, # 90 tablet, 3 Refills, Maintenance, 11/02/20 8:41:00 EDT, Tablet, [facility] #[id number], Partial fill upon patient request if the prescription is for a schedule II opioid drug., 1 tablet By Mouth Daily,x90 days, 163,... Start Date: 11/02/20 Stop Date: 10/28/21 Status: Ordered Problem List Condition Effective Dates Status Health Status Inform ant Acne(Confirmed) Active Anemia of (Confirmed) Active COVID-19(Confirmed) Active Dizzy spells(Confirmed) Active Headache(Confirmed) Active History of gestational hypertension(Confirmed) Active Non-Mohawk speaking patient(Confirmed) Active Right leg pain(Confirmed) Active (Confirmed) Active Social History Social History Type Response Smoking Status Never (less than 100 in lifetime) entered on: 08/10/20 Sex
--- OUTSIDE RECORDS SUMMARY | 2023-10-25 10:46 | XMS_ITS | Continuity of Care Document ---
Author Organization [facility] Address [address] [place] [address]- Care Team Providers Care Acid Tank Cleaner Name Role Phone Yina PERRY, Codie Primary Care Physician [phone] [facility]): 05/27/20 - 06/26/20 [facility] [address], [place] [address] Allergies, Adverse Reactions, Alerts Substance Reaction Severity [...]
--- OUTSIDE RECORDS SUMMARY | 2023-10-25 10:46 | XMS_ITS | Continuity of Care Document ---
Author Organization [facility] Address [address] [place] [address]- Care Team Providers Care Credit Reporter Name Role Phone Codie Bran NP Primary Care Physician [facility] Date(s): 01/17/21 - 03/23/21 [facility] [address] [address]- Attending Physician: Not on Staff, Attending MD [...] 02/16/21 8:25:00 EDT, Route to Pharmacy Electronically, [facility] #[id number], Partial fill upon patient request i... Start Date: 02/16/21 Status: Ordered aspirin 81 mg oral tablet, chewable 162 mg, 2, tablet, Chew, Daily, continue until 2 weeks , # 60 tablet, Refills 8, Tot. Refills 8, Maintenance, 08/29/20 13:34:00 EDT, Route to Pharmacy Electronically, [facility] #[id number], Partial fill upon patient request if the pres... Start Date: 08/29/20 Status: Ordered docusate sodium 100 mg oral capsule 1 capsule = 100 mg, By Mouth, 2 times a day, PRN Constipation, # 60 capsule, 0 Refills, Maintenance, 02/16/21 8:26:00 EDT, Capsule, [facility] #[id number], Partial fill upon patient request if the prescription is for a schedule II opioid drug., 1... Start Date: 02/16/21 Status: Ordered ferrous sulfate 325 mg oral enteric coated tablet 325 mg, By Mouth, 3 times a day, # 90 tablet, Refills 1, Tot. Refills 1, Maintenance, 02/16/21 8:28:00 EDT, Route to Pharmacy Electronically, [facility] #[id number], Partial fill upon patient request if the prescription is for a schedule II opioi... Start Date: 02/16/21 Status: Ordered ibuprofen 800 mg oral tablet 800 mg, 1, tablet, By Mouth, Every 8 hours, PRN, not to exceed 3200 mg/day, # 60 tablet, Refills 0,Tot. Refills 0, Maintenance, Pain , Moderate, 02/16/21 8:26:00 EDT, Route to Pharmacy Electronically, [facility] #[id number], Partial fill upon pa... Start Date: 02/16/21 Status: Ordered Multivitamins with Folic Acid 1 mg oral tablet 1 tablet, By Mouth, Daily, # 90 tablet, 3 Refills, Maintenance, 11/02/20 8:41:00 EDT, Tablet, [facility] #[id number], Partial fill upon patient request if the prescription is for a schedule II opioid drug., 1 tablet By Mouth Daily,x90 days, 163,... Start Date: 11/02/20 Stop Date: 10/28/21 Status: Ordered Problem List Condition Effective Dates Status Health Status Inform ant Acne(Confirmed) Active Anemia of (Confirmed) Active Dizzy spells(Confirmed) Active Headache(Confirmed) Active History of gestational hypertension(Confirmed) Active Non-Irish speaking patient(Confirmed) Active Right leg pain(Confirmed) Active (Confirmed) Active Social History Social History Type Response Smoking Status Never (less than 100 in lifetime) entered on: 08/10/20 Sex
--- OUTSIDE RECORDS SUMMARY | 2023-10-25 10:46 | XMS_ITS | Continuity of Care Document ---
Author Organization [facility] Address [address] [place] [address]- Care Team Providers Care Immigration Coordinator Name Role Phone Amilcar REED, Juan Pizano Primary Care Physician [facility]): 12/16/20 - 01/19/[address] [address] Attending Physician: Not on Staff, [...] 08/29/20 13:34:00 EDT, Route to Pharmacy Electronically, [facility] #[id number], Partial fill upon patient request if the pres... Start Date: 08/29/20 Status: Ordered ferrous sulfate 325 mg oral enteric coated tablet 325 mg, 1, tablet, By Mouth, 3 times a day, # 90 tablet, Refills 4, Tot. Refills 4, Maintenance, 11/25/20 16:25:00 EDT, Route to Pharmacy Electronically, [facility] #[id number], Partial fill upon patient request if the prescription is for a sched... Start Date: 11/25/20 Status: Ordered Multivitamins with Folic Acid 1 mg oral tablet 1 tablet, By Mouth, Daily, # 90 tablet, 3 Refills, Maintenance, 11/02/20 8:41:00 EDT, Tablet, [facility] #[id number], Partial fill upon patient request if the [...]
--- OUTSIDE RECORDS SUMMARY | 2023-10-25 10:46 | XMS_ITS | Continuity of Care Document ---
Author Organization [facility] Address [address] [place] [address]- Care Team Providers Care Vocational Services Specialist Name Role Phone Yina PERRY, Codie Primary Care Physician [phone] [facility]): 04/18/20 - 05/18/20 [facility] [address] [place] [address] Allergies, Adverse Reactions, Alerts Substance Reaction [...]
--- OUTSIDE RECORDS SUMMARY | 2023-10-25 10:46 | XMS_ITS | Continuity of Care Document ---
Author Organization [facility] Address [address] [place] [address]- Care Team Providers Care Carbon Coating Machine Operator Name Role Phone Amilcar REED, Juan Pizano Primary Care Physician [facility]s): 11/23/20 - 12/25/20 [facility] [address] [address] Attending Physician: Devora Goins DO Admitting Physician: Devora Goins DO Referring Physician: Sruthi Carpenter NP Allergies, Adverse [...] 08/29/20 13:34:00 EDT, Route to Pharmacy Electronically, [facility] #[id number], Partial fill upon patient request if the pres... Start Date: 08/29/20 Status: Ordered ferrous sulfate 325 mg oral enteric coated tablet 325 mg, 1, tablet, By Mouth, 3 times a day, # 90 tablet, Refills 4, Tot. Refills 4, Maintenance, 11/25/20 16:25:00 EDT, Route to Pharmacy Electronically, [facility] #[id number], Partial fill upon patient request if the prescription is for a sched... Start Date: 11/25/20 Status: Ordered Multivitamins with Folic Acid 1 mg oral tablet 1 tablet, By Mouth, Daily, # 90 tablet, 3 Refills, Maintenance, 11/02/20 8:41:00 EDT, Tablet, [facility] #[id number], Partial fill upon patient request if the [...]
--- OUTSIDE RECORDS SUMMARY | 2023-10-25 10:46 | XMS_ITS | Continuity of Care Document ---
Author Organization [facility] Address [address] [place] [address]- Care Team Providers Care Green Material Value Added Assessor Name Role Phone Amilcar REED, Juan Pizano Primary Care Physician [facility]): 01/28/20 - 02/27/20 [facility] [address] [place] [address]- [facility] Allergies, Adverse Reactions, Alerts Substance Reaction Severity [...] Recorded Measles Virus Vaccine 10/05/99 Recorded Medications Xulane 150 mcg-35 mcg/24 hr transdermal film, extended release 1 patch, Topically, Every week, Use continuously, one patch every week, do not remove on week 4, # 3 each, 4 Refills, Maintenance, 01/29/20 14:29:00 EDT, [facility] #[id number], 1 patch Topically Every week,Instr:Use continuously, one patch every... Start Date: 01/29/20 Status: Ordered Problem List Condition Effective Dates Status Health Status Inform ant Acne(Confirmed) Active Social History Social History Type Response Smoking Status Never smoker; Tobacc o user in household: No; Type: Cigarettes entered on: 09/29/14 Sex Female
--- OUTSIDE RECORDS SUMMARY | 2023-10-25 10:46 | XMS_ITS | Continuity of Care Document ---
Author Organization [facility] Address [address] [place] [address]- Care Team Providers Care Line Tender Name Role Phone Amilcar REED, Juan Pizano Primary Care Physician [facility]s): 11/28/20 - 12/28/[address] [address] Allergies, Adverse Reactions, Alerts Substance Reaction Severity [...] 08/29/20 13:34:00 EDT, Route to Pharmacy Electronically, [facility] #[id number], Partial fill upon patient request if the pres... Start Date: 08/29/20 Status: Ordered ferrous sulfate 325 mg oral enteric coated tablet 325 mg, 1, tablet, By Mouth, 3 times a day, # 90 tablet, Refills 4, Tot. Refills 4, Maintenance, 11/25/20 16:25:00 EDT, Route to Pharmacy Electronically, [facility] #[id number], Partial fill upon patient request if the prescription is for a sched... Start Date: 11/25/20 Status: Ordered Multivitamins with Folic Acid 1 mg oral tablet 1 tablet, By Mouth, Daily, # 90 tablet, 3 Refills, Maintenance, 11/02/20 8:41:00 EDT, Tablet, [facility] #[id number], Partial fill upon patient request if the [...]
--- OUTSIDE RECORDS SUMMARY | 2023-10-25 10:46 | XMS_ITS | Continuity of Care Document ---
Author Organization [facility] Address [address] [place] [address]- Care Team Providers Care Fur Cutter Name Role Phone Yina PERRY, Codie Primary Care Physician Encounter [facility] Date(s): 09/18/23 - 10/18/[address] [address] Allergies, Adverse Reactions, Alerts No Known [...] vaccine, inactivated 06/08/13 Singh rded SARS-CoV-2 mRNA (szwawan-hlql-sjysv) vax 06/27/21 Recorded SARS-CoV-2 (COVID-19) mRNA BNT-162b2 [...] 14:42:00 EDT, Powder, Route to Pharmacy Electronically, [id number], [facility]/pharmacy #[id number], 166, cm, 02/27/23 14:02:00 EDT, Height,... Start Date: 02/27/23 Status: Ordered albuterol CFC free 90 mcg/inh inhalation aerosol 2, puffs, Inhalation, Every 6 hours, PRN, # 8.5 Gm, Refills 4, Tot. Refills 4, Maintenance, 02/13/23 15:05:00 EDT, Route to Pharmacy Electronically, [id number], [facility]/pharmacy#[id number], 166, cm, 02/13/23 14:58:00 EDT, Height, 70.8... Start Date: 02/13/23 Status: Ordered albuterol-ipratropium 3 mg-0.5 mg/3 ml inhalation solution See Instructions, 3 mL Inhalation 4 times a day prn wheezing., # 90 mL, 11 Refills, Maintenance, 02/27/23 14:58:00 EDT, Solution, [facility]/pharmacy #[id number], Partial fill upon patient request if the prescription is for a schedule II opioid drug., 3 mL Inhalat... Start Date: 02/27/23 Status: Ordered fluticasone 50 mcg/inh nasal spray 1 sprays, Nares, Both, 2 times a day, # 16 Gm, 0 Refills, Maintenance, 03/05/23 14:51:00 EDT, [place], [id number], Partial fill upon patient request if the prescription is for a schedule II opioid drug., 1 sprays Nares, Both 2 times a day, 166,... Start Date: 03/05/23 Status: Ordered lidocaine 5% topical film 1 patch, Topically, Daily, PRN Pain , Mild, remove after 12 hours, # 13 each, 0 Refills, Maintenance, 01/16/23 16:19:00 EDT, Film, [facility]/pharmacy #[id number], Partial fill upon patient request [...] 15:07:00 EDT, Route to Pharmacy Electronically, [facility]/pharmacy #[id number], Partial fill upon patient request if the prescription is for a schedule II opioid drug... Start Date: 02/13/23 Stop Date: 08/12/23 Status: Ordered Tylenol 325 mg oral capsule 2 capsule = 650 mg, By Mouth, Every 4 hours, PRN as needed for pain, # 90 capsule, 0 Refills, Maintenance, 01/16/23 16:38:00 EDT, Capsule, [facility]/pharmacy #[id number], Partial fill upon patient request if theprescription is for a schedule II opioid drug., 166... Start Date: 01/16/23 Status: Ordered Zithromax Z-Eliseo 250 mg oral tablet 1 pack/packet, By Mouth, Once, # 6 tablet, 0 Refills, Soft Stop, 02/13/23 15:05:00 EDT, Tablet, [facility]/pharmacy #[id number], Partial fill upon patient request if the prescription is for a schedule II opioid drug., 166, cm, 02/13/23 14:58:00 EDT, Height, 70.8,... Start Date: 02/13/23 Status: Ordered Problem List Condition Confirmation Course Effective Dates Status Health St atus Informant Acne Confirmed Active Dizzy spells Confirmed Active Headache Confirmed Active History of gestational hypertension Confirmed Active Non-Scottish speaking patient Confirmed Active Social History Social History Type Response Smoking Status Never (less than 100 in lifetime) entered on: 08/10/20 Sex Patient Care team information Care Team Personnel Name: Codie Bran NP Position: [facility] PCO Associate Professional Member Role: PCP Address: Address: [address] [place] [address]- Care Team Related Persons Name: JONO WADSWORTH Address: [address] [address] Name: SYD MENDEZ Address: [address] [address] Name: SLADE RODRIGUEZ Address: [address] Address: [address] [address] [place] Name: CHAGO CUENCA Address: [address] [address]
--- OUTSIDE RECORDS SUMMARY | 2023-10-25 10:46 | XMS_ITS | Continuity of Care Document ---
Author Organization [facility] Address [address] [place] [address]- Care Team Providers Care Seal Extrusion Operator Name Role Phone Yina PERRY, Codie Primary Care Physician [phone] Encounter [facility] Date(s): 04/21/19 - 05/01/[facility] [address] [address]- [facility] Attending Physician: Greg Canales Admitting Physician: Greg [...]
--- OUTSIDE RECORDS SUMMARY | 2023-10-25 10:46 | XMS_ITS | Continuity of Care Document ---
Author Organization [facility] Address [address] [place] [address]- Care Team Providers Care Cell Feed Department Supervisor Name Role Phone Yina PERRY, Codie Primary Care Physician [place] [facility] Date(s): 08/08/21 - 09/24/[address] [address] Attending Physician: Not on Staff, Attending [...] 02/16/21 8:25:00 EDT, Route to Pharmacy Electronically, [facility] #[id number], Partial fill upon patient request i... Start Date: 02/16/21 Status: Ordered aspirin 81 mg oral tablet, chewable 162 mg, 2, tablet, Chew, Daily, continue until 2 weeks , # 60 tablet, Refills 8, Tot. Refills 8, Maintenance, 08/29/20 13:34:00 EDT, Route to Pharmacy Electronically, [facility] #[id number], Partial fill upon patient request if the pres... Start Date: 08/29/20 Status: Ordered docusate sodium 100 mg oral capsule 1 capsule = 100 mg, By Mouth, 2 times a day, PRN Constipation, # 60 capsule, 0 Refills, Maintenance, 02/16/21 8:26:00 EDT, Capsule, [facility] #[id number], Partial fill upon patient request if the prescription is for a schedule II opioid drug., 1... Start Date: 02/16/21 Status: Ordered ferrous sulfate 325 mg oral enteric coated tablet 325 mg, By Mouth, 3 times a day, # 90 tablet, Refills 1, Tot. Refills 1, Maintenance, 02/16/21 8:28:00 EDT, Route to Pharmacy Electronically, [facility] #[id number], Partial fill upon patient request if the prescription is for a schedule II opioi... Start Date: 02/16/21 Status: Ordered ibuprofen 800 mg oral tablet 800 mg, 1, tablet, By Mouth, Every 8 hours, PRN, not to exceed 3200 mg/day, # 60 tablet, Refills 0,Tot. Refills 0, Maintenance, Pain , Moderate, 02/16/21 8:26:00 EDT, Route to Pharmacy Electronically, [facility] #[id number], Partial fill upon pa... Start Date: 02/16/21 Status: Ordered Multivitamins with Folic Acid 1 mg oral tablet 1 tablet, By Mouth, Daily, # 90 tablet, 3 Refills, Maintenance, 11/02/20 8:41:00 EDT, Tablet, [facility] #[id number], Partial fill upon patient request if the prescription is for a schedule II opioid drug., 1 tablet By Mouth Daily,x90 days, 163,... Start Date: 11/02/20 Stop Date: 10/28/21 Status: Ordered Problem List Condition Effective Dates Status Health Status Inform ant Acne(Confirmed) Active Anemia of (Confirmed) Active COVID-19(Confirmed) Active Dizzy spells(Confirmed) Active Headache(Confirmed) Active History of gestational hypertension(Confirmed) Active Non-Uruguayan speaking patient(Confirmed) Active Right leg pain(Confirmed) Active (Confirmed) Active Social History Social History Type Response Smoking Status Never (less than 100 in lifetime) entered on: 08/10/20 Sex
--- OUTSIDE RECORDS SUMMARY | 2023-10-25 10:46 | XMS_ITS | Continuity of Care Document ---
Author Organization [facility] Address [address] [place] [address]- Care Team Providers Care Gasket Supervisor Name Role Phone Yina PERRY, Codie Primary Care Physician Encounter [facility] Date(s): 03/07/23 - 04/10/[address] [address]- Attending Physician: Zack Duran MD Admitting Physician: Zack Duran MD Allergies, Adverse Reactions, Alerts No Known [...] vaccine, inactivated 06/08/13 Singh rded SARS-CoV-2 mRNA (mmxyjiw-ayck-skwzs) vax 06/27/21 Recorded SARS-CoV-2 (COVID-19) mRNA BNT-162b2 [...] 14:42:00 EDT, Powder, Route to Pharmacy Electronically, [id number], [facility]/pharmacy #[id number], 166, cm, 02/27/23 14:02:00 EDT, Height,... Start Date: 02/27/23 Status: Ordered albuterol CFC free 90 mcg/inh inhalation aerosol 2, puffs, Inhalation, Every 6 hours, PRN, # 8.5 Gm, Refills 4, Tot. Refills 4, Maintenance, 02/13/23 15:05:00 EDT, Route to Pharmacy Electronically, [id number], [facility]/pharmacy#[id number], 166, cm, 02/13/23 14:58:00 EDT, Height, 70.8... Start Date: 02/13/23 Status: Ordered albuterol-ipratropium 3 mg-0.5 mg/3 ml inhalation solution See Instructions, 3 mL Inhalation 4 times a day prn wheezing., # 90 mL, 11 Refills, Maintenance, 02/27/23 14:58:00 EDT, Solution, [facility]/pharmacy #[id number], Partial fill upon patient request if the prescription is for a schedule II opioid drug., 3 mL Inhalat... Start Date: 02/27/23 Status: Ordered fluticasone 50 mcg/inh nasal spray 1 sprays, Nares, Both, 2 times a day, # 16 Gm, 0 Refills, Maintenance, 03/05/23 14:51:00 EDT, [place], [id number], Partial fill upon patient request if the prescription is for a schedule II opioid drug., 1 sprays Nares, Both 2 times a day, 166,... Start Date: 03/05/23 Status: Ordered lidocaine 5% topical film 1 patch, Topically, Daily, PRN Pain , Mild, remove after 12 hours, # 13 each, 0 Refills, Maintenance, 01/16/23 16:19:00 EDT, Film, [facility]/pharmacy #[id number], Partial fill upon patient request [...] 02/13/23 15:07:00 EDT, Route to Pharmacy Electronically, [facility]/pharmacy #[id number], Partial fill upon patient request if the prescription is for a schedule II opioid drug... Start Date: 02/13/23 Stop Date: 08/12/23 Status: Ordered Tylenol 325 mg oral capsule 2 capsule = 650 mg, By Mouth, Every 4 hours, PRN as needed for pain, # 90 capsule, 0 Refills, Maintenance, 01/16/23 16:38:00 EDT, Capsule, [facility]/pharmacy #[id number], Partial fill upon patient request if theprescription is for a schedule II opioid drug., 166... Start Date: 01/16/23 Status: Ordered Zithromax Z-Eliseo 250 mg oral tablet 1 pack/packet, By Mouth, Once, # 6 tablet, 0 Refills, Soft Stop, 02/13/23 15:05:00 EDT, Tablet, [facility]/pharmacy #[id number], Partial fill upon patient request if the prescription is for a schedule II opioid drug., 166, cm, 02/13/23 14:58:00 EDT, Height, 70.8,... Start Date: 02/13/23 Status: Ordered Problem List Condition Confirmation Course Effective Dates Status Health St atus Informant Acne Confirmed Active Dizzy spells Confirmed Active Headache Confirmed Active History of gestational hypertension Confirmed Active Non-Frisian speaking patient Confirmed Active Social History Social History Type Response Smoking Status Never (less than 100 in lifetime) entered on: 08/10/20 Sex Patient Care team information Care Team Personnel Name: Codie Bran NP Position: [facility] PCO Associate Professional Member Role: PCP Address: Address: [address] [place] [address] Care Team Related Persons Name: JONO WADSWORTH Address: home [address] [place] [address] Name: SYD MENDEZ Address: [address] [address] Name: MAEVE RODRIGUEZ Address: [address] Address: [address]
--- OUTSIDE RECORDS SUMMARY | 2023-10-25 10:47 | XMS_ITS | Continuity of Care Document ---
Author Organization [facility] Address [address] [place] [address]- Care Team Providers Care Talent Engineer Name Role Phone Codie Bran NP Primary Care Physician [phone] Encounter [facility] Date(s): 06/10/19 - 07/18/[address] [address]- [facility] Attending Physician: Meron Mayfield MD Admitting Physician: Meron Mayfield MD Referring Physician: Codie Bran NP Allergies, Adverse Reactions, Alerts Substance Reaction [...] 06/12/19 23:33:00 EST, Route to Pharmacy Electronically, [facility] #[id number], 163, cm, 06/12/19 20:18:00 EST, Height Start Date: 06/12/19 Status: Ordered Tylenol 325 mg oral tablet 325 mg, 1, tablet, By Mouth, Every 4 hours, PRN, # 60 tablet, Refills 0, Tot. Refills 0, Maintenance, for pain, 06/12/19 23:33:00 EST, Route to Pharmacy Electronically, [facility] #[id number], 163, cm, 06/12/19 20:18:00 EST, Height Start Date: 06/12/19 Status: Ordered Problem List Condition Effective Dates Status Health Status Inform ant Acne(Confirmed) Active Contraception(Confirmed) Active Distressed about housing issues(Confirmed) Active Positive test(Confirmed) Active Social History Social History Type Response Smoking Status Never smoker; Tobacc o user in household: No; Type: Cigarettes entered on: 09/29/14 Sex
--- OUTSIDE RECORDS SUMMARY | 2023-10-25 10:47 | XMS_ITS | Continuity of Care Document ---
Author Organization [facility] ter Address [address] [place] [address]- Care Team Providers Care Heel Finisher Name Role Phone Codie Bran NP Primary Care Physician [phone] [place] [facility] [place] 03/04/23 - 03/04/[address] [address]- Discharge Disposition: A-D/C Walkout Attending Physician: Not on Staff, Attending MD Admitting Physician: Not on Staff, Admitting MD Referring Physician: Not on Staff, Referring MD Allergies, Adverse Reactions, Alerts No Known [...] Give n influenza virus vaccine, inactivated 06/08/13 Sinhg rded Human Papillomavirus Vaccine 06/20/15 Given Human [...] 14:42:00 EDT, Powder, Route to Pharmacy Electronically, [id number], [facility]/pharmacy #[id number], 166, cm, 02/27/23 14:02:00 EDT, Height,... Start Date: 02/27/23 Status: Ordered albuterol CFC free 90 mcg/inh inhalation aerosol 2, puffs, Inhalation, Every 6 hours, PRN, # 8.5 Gm, Refills 4, Tot. Refills 4, Maintenance, 02/13/23 15:05:00 EDT, Route to Pharmacy Electronically, [id number], [facility]/pharmacy#[id number], 166, cm, 02/13/23 14:58:00 EDT, Height, 70.8... Start Date: 02/13/23 Status: Ordered albuterol-ipratropium 3 mg-0.5 mg/3 ml inhalation solution See Instructions, 3 mL Inhalation 4 times a day prn wheezing., # 90 mL, 11 Refills, Maintenance, 02/27/23 14:58:00 EDT, Solution, [facility]/pharmacy #[id number], Partial fill upon patient request if the prescription is for a schedule II opioid drug., 3 mL Inhalat... Start Date: 02/27/23 Status: Ordered lidocaine 5% topical film 1 patch, Topically, Daily, PRN Pain , Mild, remove after 12 hours, # 13 each, 0 Refills, Maintenance, 01/16/23 16:19:00 EDT, Film, [facility]/pharmacy #[id number], Partial fill upon patient [...] 02/13/23 15:07:00 EDT, Route to Pharmacy Electronically, [facility]/pharmacy #[id number], Partial fill upon patient request if the prescription is for a schedule II opioid drug... Start Date: 02/13/23 Stop Date: 08/12/23 Status: Ordered Tylenol 325 mg oral capsule 2 capsule = 650 mg, By Mouth, Every 4 hours, PRN as needed for pain, # 90 capsule, 0 Refills, Maintenance, 01/16/23 16:38:00 EDT, Capsule, [facility]/pharmacy #[id number], Partial fill upon patient request if theprescription is for a schedule II opioid drug., 166... Start Date: 01/16/23 Status: Ordered Zithromax Z-Eliseo 250 mg oral tablet 1 pack/packet, By Mouth, Once, # 6 tablet, 0 Refills, Soft Stop, 02/13/23 15:05:00 EDT, Tablet, [id number], Partial fill upon patient request if the prescription is for a schedule II opioid drug., 166, cm, 02/13/23 14:58:00 EDT, Height, 70.8,... Start Date: 02/13/23 Status: Ordered Problem List Condition Confirmation Course Effective Dates Status Health St atus Informant Acne Confirmed Active Dizzy spells Confirmed Active Headache Confirmed Active History of gestational hypertension Confirmed Active Non-Turkmen speaking patient Confirmed Active Social History Social History Type Response Smoking Status Never (less than 100 in lifetime) entered on: 08/10/20 Sex Patient Care team information Care Team Personnel Name: Codie Bran NP Position: [facility] PCO Associate Professional Member Role: PCP Address: Address: [address] [place] [address]- Care Team Related Persons Name: JONO WADSWORTH Address: [place] [address] Name: SYD MENDEZ Address: home [address] [place] [address] Name: MAEVE RODRIGUEZ Address: [address] Address: [address]
--- OUTSIDE RECORDS SUMMARY | 2023-10-25 10:47 | XMS_ITS | Continuity of Care Document ---
Author Organization [facility] Address [address] [place] [address]- Care Team Providers Care Beading Installer Name Role Phone Amilcar REED, Juan Pizano Primary Care Physician [facility]counter [facility] Date(s): 11/02/20 - 01/14/21 [facility] [address] [place] [id number] Attending Physician: Not on Staff, Attending MD [...] 08/29/20 13:34:00 EDT, Route to Pharmacy Electronically, [facility] #[id number], Partial fill upon patient request if the pres... Start Date: 08/29/20 Status: Ordered ferrous sulfate 325 mg oral enteric coated tablet 325 mg, 1, tablet, By Mouth, 3 times a day, # 90 tablet, Refills 4, Tot. Refills 4, Maintenance, 11/25/20 16:25:00 EDT, Route to Pharmacy Electronically, [facility] #[id number], Partial fill upon patient request if the prescription is for a sched... Start Date: 11/25/20 Status: Ordered Multivitamins with Folic Acid 1 mg oral tablet 1 tablet, By Mouth, Daily, # 90 tablet, 3 Refills, Maintenance, 11/02/20 8:41:00 EDT, Tablet, [facility] #[id number], Partial fill upon patient request if the [...]
--- OUTSIDE RECORDS SUMMARY | 2023-10-25 10:47 | XMS_ITS | Continuity of Care Document ---
Author Organization [facility] ter Address [address] [place] [address]- Care Team Providers Care Wet Trimmer Name Role Phone Yina PERRY, Codie Primary Care Physician Encounter [facility] [place] Date(s): 02/03/21 - 02/03/[address] [address] Discharge Disposition: A-D/C Home Attending Physician: Kristen Metcalf MD Admitting Physician: Kristen Metcalf MD Referring Physician: Kristen Metcalf MD Allergies, Adverse Reactions, Alerts Substance Reaction [...] 08/29/20 13:34:00 EDT, Route to Pharmacy Electronically, [facility] #[id number], Partial fill upon patient request if the pres... Start Date: 08/29/20 Status: Ordered ferrous sulfate 325 mg oral enteric coated tablet 325 mg, 1, tablet, By Mouth, 3 times a day, # 90 tablet, Refills 4, Tot. Refills 4, Maintenance, 11/25/20 16:25:00 EDT, Route to Pharmacy Electronically, [facility] #[id number], Partial fill upon patient request if the prescription is for a sched... Start Date: 11/25/20 Status: Ordered Fioricet oral capsule 1 capsule, By Mouth, Every 4 hours, PRN as needed, for 3 days, not to exceed 6 capsules/day, # 12 capsule, 0 Refills, Acute 02/06/21 17:53:00 EDT, 02/03/21 17:53:00 EDT, Capsule, [facility]#[id number], Partial fill upon patient request if the pr... Start Date: 02/03/21 Stop Date: 02/06/21 Status: Ordered metronidazole topical 0.75% gel with applicator 1 application, Vaginally, Once, 1 applicator vaginally @ HS X 7 days, # 70 Gm, 0 Refills, Soft Stop, 02/03/21 17:51:00 EDT, Gel, [facility] #[id number], Partial fill upon patient request if the prescription is for a schedule II opioid drug., 1 ap... Start Date: 02/03/21 Status: Ordered Multivitamins with Folic Acid 1 mg oral tablet 1 tablet, By Mouth, Daily, # 90 tablet, 3 Refills, Maintenance, 11/02/20 8:41:00 EDT, Tablet, [facility] #[id number], Partial fill upon patient request if the prescription is for a schedule II opioid drug., 1 tablet By Mouth Daily,x90 days, 163,... Start Date: 11/02/20 Stop Date: 10/28/21 Status: Ordered Tylenol 325 mg oral capsule 1 capsule = 325 mg, By Mouth, Every 4 hours, PRN Pain , Mild, # 20 capsule, 0 Refills, Acute 03/01/21 11:38:00 EDT, 01/30/21 11:37:00 EDT, Capsule, [facility] #[id number], Partial fill upon patient request if the prescription is for a schedule II... Start Date: 01/30/21 Stop Date: 03/01/21 Status: Ordered Tylenol 325 mg oral tablet 325 mg, Tablet, By Mouth, Every 4 hours, PRN for Pain , Mild, RUI, 02/03/21 17:00:00 EDT Start Date: 02/03/21 Stop Date: 02/04/21 Status: Discontinued Problem List Condition Effective Dates Status Health Status Inform ant Acne(Confirmed) Active Gestational hypertension(Confirmed) 1 09/03/20 Active History of gestational hypertension(Confirmed) Active (Confirmed) Active 1Problem added by Discern Expert Vital Signs Most recent to oldest [Reference Range]: 1 2 3 Weight 75.2 kg (02/03/21 2:38 PM) Oxygen Saturation [94-100 %] 100 % (02/03/21 4:38 PM) 100 % (02/03/21 4:23 PM) 100 % (02/03/21 4:08 PM) Blood Pressure [90-138/55-84 mm Hg] 113/71mm Hg (02/03/21 4:38 PM) 108/68mm Hg (02/03/21 4:23 PM) 108/74mm Hg (02/03/21 4:08 PM) Respiratory Rate [16-30 br/min] 18 br/min (02/03/21 5:41 PM) 18 br/min (02/03/21 2:59 PM) Temperature [96.8-100.4 DegF] 99.2 DegF (02/03/21 2:38 PM) Blood pressure sites Arm, left (02/03/21 4:38 PM) Arm, left (02/03/21 4:23 PM) Arm, left (02/03/21 4:08 PM) Temperature Route Oral (02/03/21 2:38 PM) Dry Weight 75.2 kg (02/03/21 2:38 PM) Social History Social History Type Response Smoking Status Never (less than 100 in lifetime) entered on: 08/10/20 Sex Female
--- OUTSIDE RECORDS SUMMARY | 2023-10-25 10:47 | XMS_ITS | Continuity of Care Document ---
Author Organization [facility] Address [address] [place] [address]- Care Team Providers Care Senior Mainframe Programmer Analyst Name Role Phone Amilcar REED, Juan Pizano Primary Care Physician [place] [facility] [place] 12[place]29/[address] [address] Attending Physician: Devora Goins DO Admitting [...] 08/29/20 13:34:00 EDT, Route to Pharmacy Electronically, [facility] #[id number], Partial fill upon patient request if the pres... Start Date: 08/29/20 Status: Ordered ferrous sulfate 325 mg oral enteric coated tablet 325 mg, 1, tablet, By Mouth, 3 times a day, # 90 tablet, Refills 4, Tot. Refills 4, Maintenance, 11/25/20 16:25:00 EDT, Route to Pharmacy Electronically, [facility] #[id number], Partial fill upon patient request if the prescription is for a sched... Start Date: 11/25/20 Status: Ordered Multivitamins with Folic Acid 1 mg oral tablet 1 tablet, By Mouth, Daily, # 90 tablet, 3 Refills, Maintenance, 11/02/20 8:41:00 EDT, Tablet, [facility] #[id number], Partial fill upon patient request if the [...]
--- OUTSIDE RECORDS SUMMARY | 2023-10-25 10:47 | XMS_ITS | Continuity of Care Document ---
Author Organization [facility] Address [address] [place] [address]- Care Team Providers Care Director Learning Name Role Phone Codie Bran NP Primary Care Physician Encounter [facility] Date(s): 03/05/23 - 03/12/23 [facility] [address], [place] [address] Encounter Diagnosis Acute cough(Discharge Diagnosis) - 03/05/23 Attending Physician: Kristal Gorman MD Referring Physician: Codie Bran NP Allergies, [...] 14:42:00 EDT, Powder, Route to Pharmacy Electronically, [id number], [facility]/pharmacy #[id number], 166, cm, 02/27/23 14:02:00 EDT, Height,... Start Date: 02/27/23 Status: Ordered albuterol CFC free 90 mcg/inh inhalation aerosol 2, puffs, Inhalation, Every 6 hours, PRN, # 8.5 Gm, Refills 4, Tot. Refills 4, Maintenance, 02/13/23 15:05:00 EDT, Route to Pharmacy Electronically, [id number], [facility]/pharmacy#[id number], 166, [...] 03/19/23 14:51:00 EDT, 03/05/23 14:51:00 EDT, Capsule, [facility]/pharmacy #[id number], Partial fill upon patient request if the prescription is for a... Start Date: 03/05/23 Stop Date: 03/19/23 Status: Ordered fluticasone 50 mcg/inh nasal spray 1 sprays, Nares, Both, 2 times a day, # 16 Gm, 0 Refills, Maintenance, 03/05/23 14:51:00 EDT, [place], [facility]/pharmacy #[id number], [...] Refills, Soft Stop, 02/13/23 15:05:00 EDT, Tablet, [facility]/pharmacy #[id number], [...] Confirmed Active Non-Chinese speaking patient Confirmed Active Diagnosis Diagnosis Type Effective Dates Health Status Clini anabel Service Informant Acute cough Discharge Diagnosis 03/05/23 Vital Signs Most recent to oldest [Reference Range]: 1 Height 166 cm (03/05/23 1:56 PM) Oxygen Saturation [94-100 %] 100 % (03/05/23 1:56 PM) Pulse Rate [55-90 bpm] 85 bpm (03/05/23 1:56 PM) Blood Pressure [90-138/55-84 mm Hg] 111/ 68mm Hg (03/05/23 1:56 PM) Respiratory Rate [16-30 br/min] 18 br/mi n (03/05/23 1:56 PM) Temperature [96.8-100.4 DegF] 97.3 DegF (03/05/23 1:56 PM) Mode of Delivery (Oxygen) Room air (03/05/23 1:56 PM) Blood pressure sites Arm, left (03/05/23 1:56 PM) Temperature Route Temporal (03/05/23 1:56 PM) Social History Social History Type Response Smoking Status Never (less than 100 in lifetime) entered on: 08/10/20 Sex Note * Nola Estes: PERFORM, SIGN, VERIFY Event Display: Patient Education/Instruction Authored Date: [id number] [facility] *[facility] Clinical Summary Name SARAH MERCHANT Age 22 Years 2000 PCP Yina PERRY, Codie PCP Visit Date 03/05/2023 12:35:00 Additional Instructions: Scheduled Appointments?? Future Appointments ?No Future Appointments Scheduled Follow-Up Instructions ?? Diagnosis Acute cough Medications: Please continue your medications until treatment is completed or stopped by your provider. Discuss any questions related to medications with your provider. New Medications [id number], [address], [place] [id number], [phone] Benzonatate (benzonatate 200 mg oral capsule) 1 capsule Oral 3 times a day as needed as needed for cough for 14 Days. Refills: 0. Next Dose: Fluticasone Nasal (fluticasone 50 mcg/inh nasal spray) 1 spray(s) Nares, Both twice a day. Refills:0. Next Dose: Medications to Continue with No Changes These medications were not printed or sent to your pharmacy Acetaminophen (Tylenol 325 mg oral capsule) 2 capsule Oral every 4 hours as needed as needed for pain. Refills: 0. Next Dose: Albuterol (albuterol CFC free 90 mcg/inh inhalation aerosol) 2 puff(s) Inhalation every 6 hours as needed Wheezing/Shortness of Breath. Refills: 4. Next Dose: Albuterol/Ipratropium (albuterol-ipratropium 3 mg-0.5 mg/3 ml inhalation solution) 3 mL Inhalation 4 times a day prn wheezing.. Refills: 11. Next Dose: Azithromycin (Zithromax Z-Eliseo 250 mg oral tablet) 1 pack/packet Oral once. Refills: 0. Next Dose: Durable Medical Equipment (Nebulizer tubing and supplies) ICD J45.909. Refills: 0. Next Dose: Durable Medical Equipment (Nebulizer/Compressor) Please use with you nebulizer medication. J45.909. Refills: 0. Next Dose: Fluticasone-Salmeterol (Advair Diskus 100 mcg-50 mcg inhalation powder) 1 puff(s) Inhalation twice a day. Refills: 5. Next Dose: Levonorgestrel (Liletta 52 mg intrauterine device) 1 Each once. inserted 04/09. Next Dose: Lidocaine Topical (lidocaine 5% topical film) 1 patch(es) Topically Daily as needed Pain , Mild. remove after 12 hours. Refills: 0. Next Dose: Montelukast (Singulair 10 mg oral tablet) 1 tab(s) Oral Daily for 30 Days. Refills: 5. Next Dose: Allergy Info:?? NKA Medications Given This Visit Future Orders ?No future orders Vital Signs Height 166 cm Weight BMI Blood Pressure 111 mm Hg/68 mm Hg Temperature 97.3 DegF Pulse Rate 85 bpm Respiratory Rate 18 br/min 02 Sat Mode of Delivery 100 %/Room air You can now view a summary of your hospital visit from the comfort of your home through a free online portal called [employer]. [employer] is a website that allows you to securely view your medical information including discharge summary, medications and follow-up visits. ??You can alsosend a secure electronic message to your doctor???s office to request appointments, renew medications or just ask a question. You can enroll at [email or web address] or register during your next office visit. Disclaimer:?? The information provided is of a general nature and is intended to be used in conjunction with the recommendations and advice of your health care practitioner. ??Every effort has been made to ensure that the information provided is accurate and complete at the time it is provided to you however, as your needs change, or, as new ??information becomes available, different or additional instructions may be required. If you have questions, please consult with your primary care provider or pharmacist, as appropriate. ??This information is not intended to serve as substitution for assessment and evaluation by a qualified health care provider. If you do not have a primary care provider, you may find a [facility] provider by calling [email or web address] Link at [phone]. [facility], in keeping with [facility] guidance, no longer requires face masks for staff, patientsor visitors in most situations. Similar to time spent indoors at other locations, there is the chance that you were exposed to respiratory viruses during your time with us (such as flu or COVID-19).? If you develop symptoms concerning for a viral respiratory infection, please seek testing (and treatment if indicated) from your medical provider or home test kit. For information about the plan of care including goals and instructions for your diagnosis, please see the patient education orders section of this document. Patient Education Materials?? The content of this educational material or handout may have been modified, supplemented, or adapted from its original content and format to support your individualized medical care. Patient Care team information Care Team Personnel Name: Codie Bran NP Position: [facility] PCO Associate Professional Member Role: PCP Address: Address: [address] [place] [address]- Care Team Related Persons Name: FRANKIE MULTANI JONO Address: [place] [address] Name: SYD MENDEZ Address: home [address] [place] [address] Name: MAEVE RODRIGUEZ Address: [address] Address: [address]
--- OUTSIDE RECORDS SUMMARY | 2023-10-25 10:47 | XMS_ITS | Continuity of Care Document ---
Author Organization [facility] Address [address] [place] [address]- Care Team Providers Care Benefits Consulting Analyst Name Role Phone Codie Bran NP Primary Care Physician [facility]counter [facility] Date(s): 05/04/19 - 06/17/[address] [address]- [facility] Attending Physician: Codie Bran NP Admitting Physician: [...] Recorded Measles Virus Vaccine 10/05/99 Recorded Medications Bactrim DS 800 mg-160 mg oral tablet 1 tablet, By Mouth, Every 12 hours, for 3 days, # 6 tablet, 0 Refills, Acute 06/18/19 18:54:00 EST,06/15/19 18:54:00 EST, Tablet, [facility] #[id number], 1 tablet By Mouth Every 12 hours,x3 days, 163, cm, 06/12/19 20:18:00 EST, Height Start Date: 06/15/19 Stop Date: 06/18/19 Status: Ordered ibuprofen 800 mg oral tablet 800 mg, 1, tablet, By Mouth, 3 times a day, # 50 tablet, Refills 0, Tot. Refills 0, Maintenance, 06/12/19 23:33:00 EST, Route to Pharmacy Electronically, [facility] #[id number], 163, cm, 06/12/19 20:18:00 EST, Height Start Date: 06/12/19 Status: Ordered Tylenol 325 mg oral tablet 325 mg, 1, tablet, By Mouth, Every 4 hours, PRN, # 60 tablet, Refills 0, Tot. Refills 0, Maintenance, for pain, 06/12/19 23:33:00 EST, Route to Pharmacy Electronically, [facility] #[id number], 163, cm, 06/12/19 20:18:00 EST, Height Start Date: 06/12/19 Status: Ordered Problem List Condition Effective Dates Status Health Status Inform ant Acne(Confirmed) Active Contraception(Confirmed) Active Distressed about housing issues(Confirmed) Active Positive test(Confirmed) Active Social History Social History Type Response Smoking Status Never smoker; Tobacc o user in household: No; Type: Cigarettes entered on: 09/29/14 Sex
--- OUTSIDE RECORDS SUMMARY | 2023-10-25 10:47 | XMS_ITS | Continuity of Care Document ---
Author Organization [facility] Address [address] [place] [address]- Care Team Providers Care Story Teller Name Role Phone Yina PERRY, Codie Primary Care Physician Encounter [facility] Date(s): 08/10/20 - 10/19/[address] [address] Attending Physician: Not on Staff, Attending MD Referring Physician: Tatyana Parra MD Allergies, [...] 08/29/20 13:34:00 EDT, Route to Pharmacy Electronically, [facility] #[id number], Partial fill upon patient request if the pres... Start Date: 08/29/20 Status: Ordered ondansetron 4 mg oral tablet, disintegrating 1 tablet = 4 mg, By Mouth, Every 8 hours, PRN Nausea & Vomiting, # 30 tablet, 1 Refills, Maintenance, 07/23/20 18:02:00 EST, Tablet, [facility] #[id number], Partial fill upon patient requestif the prescription is for a schedule II opioid drug.,... Start Date: 07/23/20 Status: Ordered Prenatabs Rx oral tablet 1 tablet, By Mouth, Daily, # 30 tablet, 10 Refills, Maintenance, 07/23/20 18:01:00 EST, Tablet, [facility] #[id number], Partial fill upon patient request if the prescription is for a schedule IIopioid drug., 1 tablet By Mouth Daily, 163, cm, /... Start Date: 07/23/20 Status: Ordered Tylenol 325 mg oral capsule 2 capsule = 650 mg, By Mouth, Every 6 hours, PRN as needed for pain, # 60 capsule, 1 Refills, Maintenance, 07/23/20 18:02:00 EST, Capsule, [facility] #[id number], Partial fill upon patient request if the prescription is for a schedule II opioid d... Start Date: 07/23/20 Status: Ordered Unisom 25 mg oral tablet 1 tablet = 25 mg, By Mouth, Daily at bedtime, PRN for sleep, # 32 tablet, 1 Refills, Maintenance, 07/23/20 18:02:00 EST, Tablet, [facility] #[id number], Partial fill upon patient request if the [...]
--- OUTSIDE RECORDS SUMMARY | 2023-10-25 10:47 | XMS_ITS | Continuity of Care Document ---
Author Organization [facility] Address [address] [place] [address]- Care Team Providers Care Odd Piece Checker Name Role Phone Amilcar REED, Juan Pizano Primary Care Physician Encounter [facility] Date(s): 10/10/20 - 11/09/[address] [address] Allergies, Adverse Reactions, Alerts Substance Reaction [...] 08/29/20 13:34:00 EDT, Route to Pharmacy Electronically, [facility] #[id number], Partial fill upon patient request if the pres... Start Date: 08/29/20 Status: Ordered Multivitamins with Folic Acid 1 mg oral tablet 1 tablet, By Mouth, Daily, # 90 tablet, 3 Refills, Maintenance, 11/02/20 8:41:00 EDT, Tablet, [facility] #[id number], Partial fill upon patient request if the [...]
--- OUTSIDE RECORDS SUMMARY | 2023-10-25 10:47 | XMS_ITS | Continuity of Care Document ---
Author Organization [facility] Address [address] [place] [address]- Care Team Providers Care Labor Crew Supervisor Name Role Phone Codie Bran NP Primary Care Physician Encounter [facility] Date(s): 02/02/21 - 03/04/[address] [address]- Attending Physician: Greg Canales Admitting Physician: AdmtrGreg Referring Physician: Admtr, ArVivien Allergies, Adverse Reactions, Alerts Substance Reaction Severity [...] 02/16/21 8:25:00 EDT, Route to Pharmacy Electronically, [facility] #[id number], Partial fill upon patient request i... Start Date: 02/16/21 Status: Ordered aspirin 81 mg oral tablet, chewable 162 mg, 2, tablet, Chew, Daily, continue until 2 weeks , # 60 tablet, Refills 8, Tot. Refills 8, Maintenance, 08/29/20 13:34:00 EDT, Route to Pharmacy Electronically, [facility] #[id number], Partial fill upon patient request if the pres... Start Date: 08/29/20 Status: Ordered docusate sodium 100 mg oral capsule 1 capsule = 100 mg, By Mouth, 2 times a day, PRN Constipation, # 60 capsule, 0 Refills, Maintenance, 02/16/21 8:26:00 EDT, Capsule, [facility] #[id number], Partial fill upon patient request if the prescription is for a schedule II opioid drug., 1... Start Date: 02/16/21 Status: Ordered ferrous sulfate 325 mg oral enteric coated tablet 325 mg, By Mouth, 3 times a day, # 90 tablet, Refills 1, Tot. Refills 1, Maintenance, 02/16/21 8:28:00 EDT, Route to Pharmacy Electronically, [facility] #[id number], Partial fill upon patient request if the prescription is for a schedule II opioi... Start Date: 02/16/21 Status: Ordered ibuprofen 800 mg oral tablet 800 mg, 1, tablet, By Mouth, Every 8 hours, PRN, not to exceed 3200 mg/day, # 60 tablet, Refills 0,Tot. Refills 0, Maintenance, Pain , Moderate, 02/16/21 8:26:00 EDT, Route to Pharmacy Electronically, [facility] #[id number], Partial fill upon pa... Start Date: 02/16/21 Status: Ordered Multivitamins with Folic Acid 1 mg oral tablet 1 tablet, By Mouth, Daily, # 90 tablet, 3 Refills, Maintenance, 11/02/20 8:41:00 EDT, Tablet, [facility] #[id number], Partial fill upon patient request if the prescription is for a schedule II opioid drug., 1 tablet By Mouth Daily,x90 days, 163,... Start Date: 11/02/20 Stop Date: 10/28/21 Status: Ordered Problem List Condition Effective Dates Status Health Status Inform ant Acne(Confirmed) Active Anemia of (Confirmed) Active Dizzy spells(Confirmed) Active Headache(Confirmed) Active History of gestational hypertension(Confirmed) Active Non-Kuwaiti speaking patient(Confirmed) Active Right leg pain(Confirmed) Active (Confirmed) Active Social History Social History Type Response Smoking Status Never (less than 100 in lifetime) entered on: 08/10/20 Sex
--- OUTSIDE RECORDS SUMMARY | 2023-10-25 10:47 | XMS_ITS | Continuity of Care Document ---
Author Organization [facility] Address [address] [place] [address]- Care Team Providers Care Pelt Shearer Name Role Phone Yina PERRY, Codie Primary Care Physician [phone] Encounter [facility] Date(s): 03/28/21 - 06/09/[address] [address] Attending Physician: Not on [...] 02/16/21 8:25:00 EDT, Route to Pharmacy Electronically, [facility] #[id number], Partial fill upon patient request i... Start Date: 02/16/21 Status: Ordered aspirin 81 mg oral tablet, chewable 162 mg, 2, tablet, Chew, Daily, continue until 2 weeks , # 60 tablet, Refills 8, Tot. Refills 8, Maintenance, 08/29/20 13:34:00 EDT, Route to Pharmacy Electronically, [facility] #[id number], Partial fill upon patient request if the pres... Start Date: 08/29/20 Status: Ordered docusate sodium 100 mg oral capsule 1 capsule = 100 mg, By Mouth, 2 times a day, PRN Constipation, # 60 capsule, 0 Refills, Maintenance, 02/16/21 8:26:00 EDT, Capsule, [facility] #[id number], Partial fill upon patient request if the prescription is for a schedule II opioid drug., 1... Start Date: 02/16/21 Status: Ordered ferrous sulfate 325 mg oral enteric coated tablet 325 mg, By Mouth, 3 times a day, # 90 tablet, Refills 1, Tot. Refills 1, Maintenance, 02/16/21 8:28:00 EDT, Route to Pharmacy Electronically, [facility] #[id number], Partial fill upon patient request if the prescription is for a schedule II opioi... Start Date: 02/16/21 Status: Ordered ibuprofen 800 mg oral tablet 800 mg, 1, tablet, By Mouth, Every 8 hours, PRN, not to exceed 3200 mg/day, # 60 tablet, Refills 0,Tot. Refills 0, Maintenance, Pain , Moderate, 02/16/21 8:26:00 EDT, Route to Pharmacy Electronically, [facility] #[id number], Partial fill upon pa... Start Date: 02/16/21 Status: Ordered Multivitamins with Folic Acid 1 mg oral tablet 1 tablet, By Mouth, Daily, # 90 tablet, 3 Refills, Maintenance, 11/02/20 8:41:00 EDT, Tablet, [facility] #[id number], Partial fill upon patient request if the prescription is for a schedule II opioid drug., 1 tablet By Mouth Daily,x90 days, 163,... Start Date: 11/02/20 Stop Date: 10/28/21 Status: Ordered Problem List Condition Effective Dates Status Health Status Inform ant Acne(Confirmed) Active Anemia of (Confirmed) Active COVID-19(Confirmed) Active Dizzy spells(Confirmed) Active Headache(Confirmed) Active History of gestational hypertension(Confirmed) Active Non-Czech speaking patient(Confirmed) Active Right leg pain(Confirmed) Active (Confirmed) Active Social History Social History Type Response Smoking Status Never (less than 100 in lifetime) entered on: 08/10/20 Sex
--- OUTSIDE RECORDS SUMMARY | 2023-10-25 10:47 | XMS_ITS | Continuity of Care Document ---
Author Organization [facility] Address [address] [place] [address]- Care Team Providers Care Employee Relations Consultant Name Role Phone Yina PERRY, Codie Primary Care Physician [facility]counter [facility] Date(s): 04/04/21 - 06/16/[address] [address] Attending Physician: Not on Staff, [...] 02/16/21 8:25:00 EDT, Route to Pharmacy Electronically, [facility] #[id number], Partial fill upon patient request i... Start Date: 02/16/21 Status: Ordered aspirin 81 mg oral tablet, chewable 162 mg, 2, tablet, Chew, Daily, continue until 2 weeks , # 60 tablet, Refills 8, Tot. Refills 8, Maintenance, 08/29/20 13:34:00 EDT, Route to Pharmacy Electronically, [facility] #[id number], Partial fill upon patient request if the pres... Start Date: 08/29/20 Status: Ordered docusate sodium 100 mg oral capsule 1 capsule = 100 mg, By Mouth, 2 times a day, PRN Constipation, # 60 capsule, 0 Refills, Maintenance, 02/16/21 8:26:00 EDT, Capsule, [facility] #[id number], Partial fill upon patient request if the prescription is for a schedule II opioid drug., 1... Start Date: 02/16/21 Status: Ordered ferrous sulfate 325 mg oral enteric coated tablet 325 mg, By Mouth, 3 times a day, # 90 tablet, Refills 1, Tot. Refills 1, Maintenance, 02/16/21 8:28:00 EDT, Route to Pharmacy Electronically, [facility] #[id number], Partial fill upon patient request if the prescription is for a schedule II opioi... Start Date: 02/16/21 Status: Ordered ibuprofen 800 mg oral tablet 800 mg, 1, tablet, By Mouth, Every 8 hours, PRN, not to exceed 3200 mg/day, # 60 tablet, Refills 0,Tot. Refills 0, Maintenance, Pain , Moderate, 02/16/21 8:26:00 EDT, Route to Pharmacy Electronically, [facility] #[id number], Partial fill upon pa... Start Date: 02/16/21 Status: Ordered Multivitamins with Folic Acid 1 mg oral tablet 1 tablet, By Mouth, Daily, # 90 tablet, 3 Refills, Maintenance, 11/02/20 8:41:00 EDT, Tablet, [facility] #[id number], Partial fill upon patient request if the prescription is for a schedule II opioid drug., 1 tablet By Mouth Daily,x90 days, 163,... Start Date: 11/02/20 Stop Date: 10/28/21 Status: Ordered Problem List Condition Effective Dates Status Health Status Inform ant Acne(Confirmed) Active Anemia of (Confirmed) Active COVID-19(Confirmed) Active Dizzy spells(Confirmed) Active Headache(Confirmed) Active History of gestational hypertension(Confirmed) Active Non-Malian speaking patient(Confirmed) Active Right leg pain(Confirmed) Active (Confirmed) Active Social History Social History Type Response Smoking Status Never (less than 100 in lifetime) entered on: 08/10/20 Sex
--- OUTSIDE RECORDS SUMMARY | 2023-10-25 10:47 | XMS_ITS | Continuity of Care Document ---
Author Organization [facility] Address [address] [place] [address]- Care Team Providers Care Retirement Plan Specialist Name Role Phone Codie Bran NP Primary Care Physician [phone] Encounter [facility] Date(s): 03/21/23 - 04/20/[address] [address] Attending Physician: AdmGreg smith Admitting Physician: AdmtrGreg [...] vaccine, inactivated 06/08/13 Singh rded SARS-CoV-2 mRNA ([id number]) vax 06/27/21 Recorded SARS-CoV-2 (COVID-19) mRNA BNT-162b2 vac 06/01/21 Recorded tetanus/diphtheria/pertussis, acel(Tdap) 11/23/20 Given tetanus/diphtheria/pertussis, acel(Tdap) 05/28/17 Given tetanus/diphtheria/pertussis, acel(Tdap) 09/18/13 Recorded Human Papillomavirus Vaccine 06/20/15 Given Human Papillomavirus Vaccine 10/15/15 Given Human Papillomavirus Vaccine 07/14/14 Given Meningococcal [...] 14:42:00 EDT, Powder, Route to Pharmacy Electronically, [id number], [facility] #[id number], 166, cm, 02/27/23 14:02:00 EDT, Height,... Start Date: 02/27/23 Status: Ordered albuterol CFC free 90 mcg/inh inhalation aerosol 2, puffs, Inhalation, Every 6 hours, PRN, # 8.5 Gm, Refills 4, Tot. Refills 4, Maintenance, 02/13/23 15:05:00 EDT, Route to Pharmacy Electronically, [id number], [facility]/pharmacy#[id number], 166, cm, 02/13/23 14:58:00 EDT, Height, 70.8... Start Date: 02/13/23 Status: Ordered albuterol-ipratropium 3 mg-0.5 mg/3 ml inhalation solution See Instructions, 3 mL Inhalation 4 times a day prn wheezing., # 90 mL, 11 Refills, Maintenance, 02/27/23 14:58:00 EDT, Solution, [facility]/pharmacy #[id number], Partial fill upon patient request if [...] 0 Refills, Maintenance, 01/16/23 16:19:00 EDT, Film, [facility]/pharmacy #[id number], Partial fill upon patient request if [...] 02/13/23 15:07:00 EDT, Route to Pharmacy Electronically, [id number], Partial fill upon patient request [...] Active History of gestational hypertension Confirmed Active Non-Lithuanian speaking patient Confirmed Active Social History Social History Type Response Smoking Status Never (less than 100 in lifetime) entered on: 08/10/20 Sex Radiology * Event Display: Non Radiology Results Authored Date: * Event Display: X-Ray Ankle/Foot, Non- Authored Date: Patient Care team information Care Team Personnel Name: Codie Bran NP Position: [facility] PCO Associate Professional Member Role: PCP Address: Address: [address] [place] [address] Care Team Related Persons Name: ERMELINDAJONO MULTANI Address: [place] [address] Name: SYD MENDEZ Address: [place] [address] Name: MAEVE RODRIGUEZ Address: [address] Address: [address]
--- OUTSIDE RECORDS SUMMARY | 2023-10-25 10:47 | XMS_ITS | Continuity of Care Document ---
Author Organization [facility] Address [address] [place] [address]- Care Team Providers Care Belly Dancer Name Role Phone Amilcar REED, Juan Pizano Primary Care Physician [facility] Date[facility]): 10[facility]20 - 11/25/[address] [address] Allergies, Adverse Reactions, Alerts Substance [...] vaccine 06/08/13 Recorded hepatitis B pediatric vaccine 9/14/99 Recorded Menactra (oldterm) 06/08/13 Recorded Poliovirus Vaccine, [...] 08/29/20 13:34:00 EDT, Route to Pharmacy Electronically, [facility] #[id number], Partial fill upon patient request if the pres... Start Date: 08/29/20 Status: Ordered ferrous sulfate 325 mg oral enteric coated tablet 325 mg, 1, tablet, By Mouth, 3 times a day, # 90 tablet, Refills 4, Tot. Refills 4, Maintenance, 11/25/20 16:25:00 EDT, Route to Pharmacy Electronically, [facility] #[id number], Partial fill upon patient request if the prescription is for a sched... Start Date: 11/25/20 Status: Ordered Multivitamins with Folic Acid 1 mg oral tablet 1 tablet, By Mouth, Daily, # 90 tablet, 3 Refills, Maintenance, 11/02/20 8:41:00 EDT, Tablet, [facility] #[id number], Partial fill upon patient request if the [...]
--- OUTSIDE RECORDS SUMMARY | 2023-10-25 10:47 | XMS_ITS | Continuity of Care Document ---
Author Organization [facility] Address [address] [place] [address]- Care Team Providers Care Performance Improvement Manager Name Role Phone Codie Bran NP Primary Care Physician [phone] [facility]): 03/27/19 - 05/21/19 [facility] [address] [address]- [facility] Attending Physician: Not on Staff, Attending MD [...]
--- OUTSIDE RECORDS SUMMARY | 2023-10-25 10:47 | XMS_ITS | Continuity of Care Document ---
Author Organization [facility] Address [address] [place] [address]- Care Team Providers Care Hydraulic Repairer Name Role Phone Yina PERRY, Codie Primary Care Physician [phone] [facility] Date(s): 03/04/23 - 04/03/[address] [address] Allergies, Adverse Reactions, Alerts No [...] vaccine, inactivated 06/08/13 Singh rded SARS-CoV-2 mRNA ([id number]) vax 06/27/21 Recorded SARS-CoV-2 (COVID-19) mRNA BNT-162b2 [...] 14:42:00 EDT, Powder, Route to Pharmacy Electronically, [id number], [facility]/pharmacy #[id number], 166, cm, 02/27/23 14:02:00 EDT, Height,... Start Date: 02/27/23 Status: Ordered albuterol CFC free 90 mcg/inh inhalation aerosol 2, puffs, Inhalation, Every 6 hours, PRN, # 8.5 Gm, Refills 4, Tot. Refills 4, Maintenance, 02/13/23 15:05:00 EDT, Route to Pharmacy Electronically, [id number], [facility]/pharmacy#[id number], 166, cm, 02/13/23 14:58:00 EDT, Height, 70.8... Start Date: 02/13/23 Status: Ordered albuterol-ipratropium 3 mg-0.5 mg/3 ml inhalation solution See Instructions, 3 mL Inhalation 4 times a day prn wheezing., # 90 mL, 11 Refills, Maintenance, 02/27/23 14:58:00 EDT, Solution, [facility]/pharmacy #[id number], Partial fill upon patient request if the prescription is for a schedule II opioid drug., 3 mL Inhalat... Start Date: 02/27/23 Status: Ordered fluticasone 50 mcg/inh nasal spray 1 sprays, Nares, Both, 2 times a day, # 16 Gm, 0 Refills, Maintenance, 03/05/23 14:51:00 EDT, [place], [facility]/pharmacy #[id number], Partial fill upon patient request if the prescription is for a schedule II opioid drug., 1 sprays Nares, Both 2 times a day, 166,... Start Date: 03/05/23 Status: Ordered lidocaine 5% topical film 1 patch, Topically, Daily, PRN Pain , Mild, remove after 12 hours, # 13 each, 0 Refills, Maintenance, 01/16/23 16:19:00 EDT, [place], [facility]/pharmacy #[id number], Partial fill upon patient request if [...] 02/13/23 15:07:00 EDT, Route to Pharmacy Electronically, [facility]/pharmacy #[id number], Partial fill upon patient request if [...] Active History of gestational hypertension Confirmed Active Non-Hebrew speaking patient Confirmed Active Social History Social History Type Response Smoking Status Never (less than 100 in lifetime) entered on: 08/10/20 Sex Patient Care team information Care Team Personnel Name: Codie Bran NP Position: [facility] PCO Associate Professional Member Role: PCP Address: Address: [address] [place] [address]- Care Team Related Persons Name: JONO WADSWORTH Address: home [address] [place] [address] Name: SYD MENDEZ Address: home [address] [place] [address] Name: MAEVE RODRIGUEZ Address: [address] Address: [address]
--- OUTSIDE RECORDS SUMMARY | 2023-10-25 10:47 | XMS_ITS | Continuity of Care Document ---
Author Organization [facility] Address [address] [place] [address]- Care Team Providers Care Supervisor Hot Dip Plating Name Role Phone Amilcar REED, Juan Pizano Primary Care Physician [facility]): 10/19/19 - 11/28/19 [facility] [address] [address]- [facility] Attending Physician: Not on Staff, Attending MD [...]
--- OUTSIDE RECORDS SUMMARY | 2023-10-25 10:47 | XMS_ITS | Continuity of Care Document ---
Author Organization [facility] Address [address] [place] [address]- Care Team Providers Care Sheep Clipper Name Role Phone Yina PERRY, Codie Primary Care Physician [phone] [facility] Date(s): 12/21/20 - 01/26/[address] [address] Attending Physician: Meron Mayfield MD Admitting Physician: Meron Mayfield MD Allergies, Adverse Reactions, Alerts Substance Reaction [...] 08/29/20 13:34:00 EDT, Route to Pharmacy Electronically, [facility] #[id number], Partial fill upon patient request if the pres... Start Date: 08/29/20 Status: Ordered ferrous sulfate 325 mg oral enteric coated tablet 325 mg, 1, tablet, By Mouth, 3 times a day, # 90 tablet, Refills 4, Tot. Refills 4, Maintenance, 11/25/20 16:25:00 EDT, Route to Pharmacy Electronically, [facility] #[id number], Partial fill upon patient request if the prescription is for a sched... Start Date: 11/25/20 Status: Ordered Multivitamins with Folic Acid 1 mg oral tablet 1 tablet, By Mouth, Daily, # 90 tablet, 3 Refills, Maintenance, 11/02/20 8:41:00 EDT, Tablet, [facility] #[id number], Partial fill upon patient request if the [...]
--- OUTSIDE RECORDS SUMMARY | 2023-10-25 10:47 | XMS_ITS | Continuity of Care Document ---
Author Organization [facility] Address [address] [place] [address]- Care Team Providers Care Accounts Payable Clerk Name Role Phone Yina PERRY, Codie Primary Care Physician [facility] Date(s): 04/13/20 - 05/13/[address] [address]- Allergies, Adverse Reactions, Alerts Substance Reaction Severity [...]
--- OUTSIDE RECORDS SUMMARY | 2023-10-25 10:47 | XMS_ITS | Continuity of Care Document ---
Author Organization [facility] Address [address] [place] [address]- Care Team Providers Care Ergonomic Specialist Name Role Phone Yina PERRY, Codie Primary Care Physician [phone] [facility] Date(s): 07/25/20 - 08/24/20 [facility] [address] [address] Allergies, Adverse Reactions, Alerts Substance Reaction [...] 08/10/20 11:50:00 EDT, Route to Pharmacy Electronically, [facility] #[id number], Partial fill upon patient request if the pres... Start Date: 08/10/20 Status: Ordered ondansetron 4 mg oral tablet, disintegrating 1 tablet = 4 mg, By Mouth, Every 8 hours, PRN Nausea & Vomiting, # 30 tablet, 1 Refills, Maintenance, 07/23/20 18:02:00 EST, Tablet, [facility] #[id number], Partial fill upon patient requestif the prescription is for a schedule II opioid drug.,... Start Date: 07/23/20 Status: Ordered Prenatabs Rx oral tablet 1 tablet, By Mouth, Daily, # 30 tablet, 10 Refills, Maintenance, 07/23/20 18:01:00 EST, Tablet, [facility] #[id number], Partial fill upon patient request if the prescription is for a schedule IIopioid drug., 1 tablet By Mouth Daily, 163, cm, ... Start Date: 07/23/20 Status: Ordered Tylenol 325 mg oral capsule 2 capsule = 650 mg, By Mouth, Every 6 hours, PRN as needed for pain, # 60 capsule, 1 Refills, Maintenance, 07/23/20 18:02:00 EST, Capsule, [facility] #[id number], Partial fill upon patient request if the prescription is for a schedule II opioid d... Start Date: 07/23/20 Status: Ordered Unisom 25 mg oral tablet 1 tablet = 25 mg, By Mouth, Daily at bedtime, PRN for sleep, # 32 tablet, 1 Refills, Maintenance, 07/23/20 18:02:00 EST, Tablet, [facility] #[id number], Partial fill upon patient request if the [...]
--- OUTSIDE RECORDS SUMMARY | 2023-10-25 10:47 | XMS_ITS | Continuity of Care Document ---
Author Organization [facility] Address [address] [place] [address]- Care Team Providers Care Buckle Stapler Name Role Phone Yina PERRY, Codie Primary Care Physician [phone] [facility] Date(s): 02/26/23 - 03/28/[address] [email or web address] Allergies, Adverse Reactions, Alerts No Known Allergies [...] vaccine, inactivated 06/08/13 Singh rded SARS-CoV-2 mRNA ([id number]-tiwm-dcaif) vax 06/27/21 Recorded SARS-CoV-2 (COVID-19) mRNA BNT-162b2 [...] 14:42:00 EDT, Powder, Route to Pharmacy Electronically, [id number], [facility]/pharmacy #[id number], 166, cm, 02/27/23 14:02:00 EDT, Height,... Start Date: 02/27/23 Status: Ordered albuterol CFC free 90 mcg/inh inhalation aerosol 2, puffs, Inhalation, Every 6 hours, PRN, # 8.5 Gm, Refills 4, Tot. Refills 4, Maintenance, 02/13/23 15:05:00 EDT, Route to Pharmacy Electronically, [id number], [facility]/pharmacy#[id number], 166, cm, 02/13/23 14:58:00 EDT, Height, 70.8... Start Date: 02/13/23 Status: Ordered albuterol-ipratropium 3 mg-0.5 mg/3 ml inhalation solution See Instructions, 3 mL Inhalation 4 times a day prn wheezing., # 90 mL, 11 Refills, Maintenance, 02/27/23 14:58:00 EDT, Solution, [facility]/pharmacy #[id number], Partial fill upon patient request if the prescription is for a schedule II opioid drug., 3 mL Inhalat... Start Date: 02/27/23 Status: Ordered fluticasone 50 mcg/inh nasal spray 1 sprays, Nares, Both, 2 times a day, # 16 Gm, 0 Refills, Maintenance, 03/05/23 14:51:00 EDT, [place], [facility]/pharmacy #[id number], Partial fill upon patient request if the prescription is for a schedule II opioid drug., 1 sprays Nares, Both 2 times a day, 166,... Start Date: 03/05/23 Status: Ordered lidocaine 5% topical film 1 patch, Topically, Daily, PRN Pain , Mild, remove after 12 hours, # 13 each, 0 Refills, Maintenance, 01/16/23 16:19:00 EDT, Film, [facility]/pharmacy #[id number], Partial fill upon patient request [...] 15:07:00 EDT, Route to Pharmacy Electronically, [facility]/pharmacy #[id number], Partial fill upon patient request [...] Active History of gestational hypertension Confirmed Active Non-Ugandan speaking patient Confirmed Active Social History Social History Type Response Smoking Status Never (less than 100 in lifetime) entered on: 08/10/20 Sex Patient Care team information Care Team Personnel Name: Codie Bran NP Position: [facility] PCO Associate Professional Member Role: PCP Address: Address: [address] [place] [address]- Care Team Related Persons Name: JONO WADSWORTH Address: home [address] [place] [address] Name: SYD MENDEZ Address: home [address] [place] [address] Name: MAEVE RODRIGUEZ Address: [address] Address: [address]
--- OUTSIDE RECORDS SUMMARY | 2023-10-25 10:47 | XMS_ITS | Continuity of Care Document ---
Author Organization [facility] Address [address] [place] [address]- Care Team Providers Care Carpenter Foreman Name Role Phone Juan Fitzgerald MD Primary Care Physician Encounter [facility] Date(s): 01/12/21 - 01/12/[address] [address] Discharge Disposition: A-D/C Walkout Attending Physician: Meaghan Roth MD Admitting Physician: [...] 08/29/20 13:34:00 EDT, Route to Pharmacy Electronically, [facility] #[id number], Partial fill upon patient request if the pres... Start Date: 08/29/20 Status: Ordered ferrous sulfate 325 mg oral enteric coated tablet 325 mg, 1, tablet, By Mouth, 3 times a day, # 90 tablet, Refills 4, Tot. Refills 4, Maintenance, 11/25/20 16:25:00 EDT, Route to Pharmacy Electronically, [facility] #[id number], Partial fill upon patient request if the prescription is for a sched... Start Date: 11/25/20 Status: Ordered Multivitamins with Folic Acid 1 mg oral tablet 1 tablet, By Mouth, Daily, # 90 tablet, 3 Refills, Maintenance, 11/02/20 8:41:00 EDT, Tablet, [facility] #[id number], Partial fill upon patient request if the [...]
--- OUTSIDE RECORDS SUMMARY | 2023-10-25 10:47 | XMS_ITS | Continuity of Care Document ---
Author Organization [facility] Address [address] [place] [address]- Care Team Providers Care Tabber Name Role Phone Yina PERRY, Codie Primary Care Physician [facility] Date(s): 11/27/21 - 12/27/21 [facility] [address] [place] [address]- Allergies, Adverse Reactions, Alerts No Known Allergies [...] 3 Refills, Maintenance, 11/28/21 13:23:00 EDT, Tablet, [facility] #[id number], Partial fill upon patient request if the prescription is for a schedule II opioid drug., 1 tablet By Mouth Daily,x90 days, 159,... Start Date: 11/28/21 Stop Date: 11/23/22 Status: Ordered Problem List Condition Effective Dates Status Health Status Inform ant Acne(Confirmed) Active COVID-19(Confirmed) Active Dizzy spells(Confirmed) Active Headache(Confirmed) Active History of gestational hypertension(Confirmed) Active Non-Icelandic speaking patient(Confirmed) Active Social History Social History Type Response Smoking Status Never (less than 100 in lifetime) entered on: 08/10/20 Sex
--- OUTSIDE RECORDS SUMMARY | 2023-10-25 10:48 | XMS_ITS | Continuity of Care Document ---
Author Organization [facility] Address [address] [place] [address]- Care Team Providers Care Coil Machine Operator Name Role Phone Yina PERRY, Codie Primary Care Physician [phone] [facility] Date(s): 10/30/22 - 11/29/[address] [address] Attending Physician: Greg Canales Admitting Physician: AdmtrGreg Referring Physician: AdmtrGreg Allergies, Adverse Reactions, Alerts [...] Team Personnel Name: Codie Bran NP Position: [facility] PCO Associate Professional Member Role: PCP Address: Address: [address] [place] [id number] Care Team Related Persons Name: JONO WADSWORTH Address: home [address] [place] [address] Name: SYD MENDEZ Address: home [address] [place] [address] Name: MAEVE RODRIGUEZ Address: [address] Address: [address]
--- OUTSIDE RECORDS SUMMARY | 2023-10-25 10:48 | XMS_ITS | Continuity of Care Document ---
Author Organization [facility] Address [address] [place] [address]- Care Team Providers Care Fabrication Manager Name Role Phone Yina PERRY, Codie Primary Care Physician [facility] Date(s): 05/24/20 - 06/23/[address] [address]- Allergies, Adverse Reactions, Alerts Substance Reaction Severity [...]
--- OUTSIDE RECORDS SUMMARY | 2023-10-25 10:48 | XMS_ITS | Continuity of Care Document ---
Author Organization [facility] Address [address] [place] [address]- Care Team Providers Care Banana Room Cutter Name Role Phone Codie Bran NP Primary Care Physician En[facility] Date(s): 08/28/21 - 08/28/[address] [address] Discharge Disposition: A-D/C AMA Attending Physician: Dre Reid MD Admitting Physician: Dre Reid MD Referring Physician: Dre Reid MD Allergies, Adverse Reactions, Alerts No Known [...] 02/16/21 8:25:00 EDT, Route to Pharmacy Electronically, [facility] #[id number], Partial fill upon patient request i... Start Date: 02/16/21 Status: Ordered aspirin 81 mg oral tablet, chewable 162 mg, 2, tablet, Chew, Daily, continue until 2 weeks , # 60 tablet, Refills 8, Tot. Refills 8, Maintenance, 08/29/20 13:34:00 EDT, Route to Pharmacy Electronically, [facility] #[id number], Partial fill upon patient request if the pres... Start Date: 08/29/20 Status: Ordered docusate sodium 100 mg oral capsule 1 capsule = 100 mg, By Mouth, 2 times a day, PRN Constipation, # 60 capsule, 0 Refills, Maintenance, 02/16/21 8:26:00 EDT, Capsule, [facility] #[id number], Partial fill upon patient request if the prescription is for a schedule II opioid drug., 1... Start Date: 02/16/21 Status: Ordered ferrous sulfate 325 mg oral enteric coated tablet 325 mg, By Mouth, 3 times a day, # 90 tablet, Refills 1, Tot. Refills 1, Maintenance, 02/16/21 8:28:00 EDT, Route to Pharmacy Electronically, [facility] #[id number], Partial fill upon patient request if the prescription is for a schedule II opioi... Start Date: 02/16/21 Status: Ordered ibuprofen 800 mg oral tablet 800 mg, 1, tablet, By Mouth, Every 8 hours, PRN, not to exceed 3200 mg/day, # 60 tablet, Refills 0,Tot. Refills 0, Maintenance, Pain , Moderate, 02/16/21 8:26:00 EDT, Route to Pharmacy Electronically, [facility] #[id number], Partial fill upon pa... Start Date: 02/16/21 Status: Ordered Multivitamins with Folic Acid 1 mg oral tablet 1 tablet, By Mouth, Daily, # 90 tablet, 3 Refills, Maintenance, 11/02/20 8:41:00 EDT, Tablet, [facility] #[id number], Partial fill upon patient request if the prescription is for a schedule II opioid drug., 1 tablet By Mouth Daily,x90 days, 163,... Start Date: 11/02/20 Stop Date: 10/28/21 Status: Ordered Problem List Condition Effective Dates Status Health Status Inform ant Acne(Confirmed) Active Anemia of (Confirmed) Active COVID-19(Confirmed) Active Dizzy spells(Confirmed) Active Headache(Confirmed) Active History of gestational hypertension(Confirmed) Active Non-Romanian speaking patient(Confirmed) Active Right leg pain(Confirmed) Active (Confirmed) Active Vital Signs Most recent to oldest [Reference Range]: 1 Weight 65.8 kg (08/28/21 4:26 PM) Oxygen Saturation [94-100 %] 100 % (08/28/21 4:26 PM) Pulse Rate [55-90 bpm] 90 bpm (08/28/21 4:26 PM) Blood Pressure [90-138/55-84 mm Hg] 107/ 71mm Hg (08/28/21 4:26 PM) Respiratory Rate [16-30 br/min] 20 br/mi n (08/28/21 4:26 PM) Temperature [96.8-100.4 DegF] 98 DegF (08/28/21 4:26 PM) Temperature Route Oral (08/28/21 4:26 PM) Weight Obtained Via Standing scale (08/28/21 4:26 PM) Social History Social History Type Response Smoking Status Never (less than 100 in lifetime) entered on: 08/10/20 Sex
--- OUTSIDE RECORDS SUMMARY | 2023-10-25 10:48 | XMS_ITS | Continuity of Care Document ---
Author Organization [facility] Address [address] [place] [address]- Care Team Providers Care Body And Frame Man Name Role Phone Codie Bran NP Primary Care Physician [phone] Encounter [facility] Date(s): 04/02/22 - 05/02/[address] [address]- Attending Physician: AdmGreg smith Admitting Physician: AdmtrGreg [...] 0 Refills, Maintenance, 12/29/21 15:49:00 EDT, [place], [facility]/pharmacy #[id number], Partial fill upon patient request if the prescription is for a schedule II opioid drug., 1 lozenge By Mouth... Start Date: 12/29/21 Status: Ordered ibuprofen 600 mg oral tablet 600 mg, 1, tablet, By Mouth, Every 6 hours, PRN, # 20 tablet, Refills 0, Tot. Refills 0, Maintenance, Pain , Moderate, 12/29/21 15:51:00 EDT, Route to Pharmacy Electronically, [facility]/pharmacy #[id number], Partial fill upon patient request if the prescription i... Start Date: 12/29/21 Status: Ordered Multivitamins with Folic Acid 1 mg oral tablet 1 tablet, By Mouth, Daily, # 90 tablet, 3 Refills, Maintenance, 11/28/21 13:23:00 EDT, Tablet, [facility] #[id number], Partial fill upon patient request if the [...] Refills, Maintenance, 12/29/21 15:49:00 EDT, ER Tablet, [facility]/pharmacy #[id number], Partial fill upon patient request if the prescription is for a schedule II opioid drug.,... Start Date: 12/29/21 Status: Ordered Problem List Condition Confirmation Course Effective Dates Status Health St atus Informant Acne Confirmed Active COVID-19 Confirmed Active Dizzy spells Confirmed Active Headache Confirmed Active History of gestational hypertension Confirmed Active Non-Thai speaking patient Confirmed Active Social History Social History Type Response Smoking Status Never (less than 100 in lifetime) entered on: 08/10/20 Sex Patient Care team information Care Team Personnel Name: Codie Bran NP Position: [facility] PCO Associate Professional Member Role: PCP Address: Address: [address] [place] [address]- Care Team Related Persons Name: JONO WADSWORTH Address: [place] [address] Name: SYD MENDEZ Address: [place] [address] Name: MAEVE RODRIGUEZ Address: [address] Address: [address]
--- OUTSIDE RECORDS SUMMARY | 2023-10-25 10:48 | XMS_ITS | Continuity of Care Document ---
Author Organization [facility] Address [address] [place] [address]- Care Team Providers Care Pie Cutter Name Role Phone Yina PERRY, Codie Primary Care Physician [phone] [facility]counter [facility] Date(s): 08/28/21 - 09/27/[address] [address]- Allergies, Adverse Reactions, Alerts No Known Allergies [...] 02/16/21 8:25:00 EDT, Route to Pharmacy Electronically, [facility] #[id number], Partial fill upon patient request i... Start Date: 02/16/21 Status: Ordered aspirin 81 mg oral tablet, chewable 162 mg, 2, tablet, Chew, Daily, continue until 2 weeks , # 60 tablet, Refills 8, Tot. Refills 8, Maintenance, 08/29/20 13:34:00 EDT, Route to Pharmacy Electronically, [facility] #[id number], Partial fill upon patient request if the pres... Start Date: 08/29/20 Status: Ordered docusate sodium 100 mg oral capsule 1 capsule = 100 mg, By Mouth, 2 times a day, PRN Constipation, # 60 capsule, 0 Refills, Maintenance, 02/16/21 8:26:00 EDT, Capsule, [facility] #[id number], Partial fill upon patient request if the prescription is for a schedule II opioid drug., 1... Start Date: 02/16/21 Status: Ordered ferrous sulfate 325 mg oral enteric coated tablet 325 mg, By Mouth, 3 times a day, # 90 tablet, Refills 1, Tot. Refills 1, Maintenance, 02/16/21 8:28:00 EDT, Route to Pharmacy Electronically, [facility] #[id number], Partial fill upon patient request if the prescription is for a schedule II opioi... Start Date: 02/16/21 Status: Ordered ibuprofen 800 mg oral tablet 800 mg, 1, tablet, By Mouth, Every 8 hours, PRN, not to exceed 3200 mg/day, # 60 tablet, Refills 0,Tot. Refills 0, Maintenance, Pain , Moderate, 02/16/21 8:26:00 EDT, Route to Pharmacy Electronically, [facility] #[id number], Partial fill upon pa... Start Date: 02/16/21 Status: Ordered Multivitamins with Folic Acid 1 mg oral tablet 1 tablet, By Mouth, Daily, # 90 tablet, 3 Refills, Maintenance, 11/02/20 8:41:00 EDT, Tablet, [facility] #[id number], Partial fill upon patient request if the prescription is for a schedule II opioid drug., 1 tablet By Mouth Daily,x90 days, 163,... Start Date: 11/02/20 Stop Date: 10/28/21 Status: Ordered Problem List Condition Effective Dates Status Health Status Inform ant Acne(Confirmed) Active Anemia of (Confirmed) Active COVID-19(Confirmed) Active Dizzy spells(Confirmed) Active Headache(Confirmed) Active History of gestational hypertension(Confirmed) Active Non-Anguillan speaking patient(Confirmed) Active Right leg pain(Confirmed) Active (Confirmed) Active Social History Social History Type Response Smoking Status Never (less than 100 in lifetime) entered on: 08/10/20 Sex
--- OUTSIDE RECORDS SUMMARY | 2023-10-25 10:48 | XMS_ITS | Continuity of Care Document ---
Author Organization [facility] Address [address] [place] [address]- Care Team Providers Care Labor Commissioner Name Role Phone Amilcar REED, Juan Pizano Primary Care Physician [facility] Date[facility]): 12/09/20 - 01/08/[address] [address] Allergies, Adverse Reactions, Alerts Substance [...] 08/29/20 13:34:00 EDT, Route to Pharmacy Electronically, [facility] #[id number], Partial fill upon patient request if the pres... Start Date: 08/29/20 Status: Ordered ferrous sulfate 325 mg oral enteric coated tablet 325 mg, 1, tablet, By Mouth, 3 times a day, # 90 tablet, Refills 4, Tot. Refills 4, Maintenance, 11/25/20 16:25:00 EDT, Route to Pharmacy Electronically, [facility] #[id number], Partial fill upon patient request if the prescription is for a sched... Start Date: 11/25/20 Status: Ordered Multivitamins with Folic Acid 1 mg oral tablet 1 tablet, By Mouth, Daily, # 90 tablet, 3 Refills, Maintenance, 11/02/20 8:41:00 EDT, Tablet, [facility] #[id number], Partial fill upon patient request if the [...]
--- OUTSIDE RECORDS SUMMARY | 2023-10-25 10:48 | XMS_ITS | Continuity of Care Document ---
Author Organization [facility] Address [address] [place] [address]- Care Team Providers Care Customs Compliance Manager Name Role Phone Yina PERRY, Codie Primary Care Physician Encounter [facility] Date(s): 05/25/20 - 06/24/[address] [address]- Allergies, Adverse Reactions, Alerts Substance Reaction Severity [...]
--- OUTSIDE RECORDS SUMMARY | 2023-10-25 10:48 | XMS_ITS | Continuity of Care Document ---
Author Organization [facility] Address [address] [place] [address]- Care Team Providers Care Product Representative Name Role Phone Yina PERRY, Codie Primary Care Physician [phone] [facility] [place]/22/19 - 08/01/19 [facility] [address] [address]- [facility] Attending Physician: Carlin Canales8 Admitting Physician: AdmGreg smith Referring Physician: AdmtrGreg Allergies, Adverse Reactions, Alerts [...] 06/12/19 23:33:00 EST, Route to Pharmacy Electronically, [email or web address] #[id number], 163, cm, 06/12/19 20:18:00 EST, Height Start Date: 06/12/19 Status: Ordered Tylenol 325 mg oral tablet 325 mg, 1, tablet, By Mouth, Every 4 hours, PRN, # 60 tablet, Refills 0, Tot. Refills 0, Maintenance, for pain, 06/12/19 23:33:00 EST, Route to Pharmacy Electronically, [email or web address] #[id number], 163, cm, 06/12/19 20:18:00 EST, Height Start Date: 06/12/19 Status: Ordered Problem List Condition Effective Dates Status Health Status Inform ant Acne(Confirmed) Active Contraception(Confirmed) Active Distressed about housing issues(Confirmed) Active Positive test(Confirmed) Active Social History Social History Type Response Smoking Status Never smoker; Tobacc o user in household: No; Type: Cigarettes entered on: 09/29/14 Sex
--- OUTSIDE RECORDS SUMMARY | 2023-10-25 10:48 | XMS_ITS | Continuity of Care Document ---
Author Organization [facility] ter Address [address] [place] [address]- Care Team Providers Care Assessment Services Manager Name Role Phone Codie Bran NP Primary Care Physician [place] [facility](s[place] 01/28/22 - 01/28/[address] [address]- Discharge Disposition: A-D/C Walkout Attending Physician: Not [...] 0 Refills, Maintenance, 12/29/21 15:49:00 EDT, [place], [facility]/pharmacy #[id number], Partial fill upon patient request if the prescription is for a schedule II opioid drug., 1 lozenge By Mouth... Start Date: 12/29/21 Status: Ordered ibuprofen 600 mg oral tablet 600 mg, 1, tablet, By Mouth, Every 6 hours, PRN, # 20 tablet, Refills 0, Tot. Refills 0, Maintenance, Pain , Moderate, 12/29/21 15:51:00 EDT, Route to Pharmacy Electronically, [facility]/pharmacy #[id number], Partial fill upon patient request if the prescription i... Start Date: 12/29/21 Status: Ordered Multivitamins with Folic Acid 1 mg oral tablet 1 tablet, By Mouth, Daily, # 90 tablet, 3 Refills, Maintenance, 11/28/21 13:23:00 EDT, Tablet, [facility] #[id number], Partial fill upon patient request if the [...] Refills, Maintenance, 12/29/21 15:49:00 EDT, ER Tablet, [facility]/pharmacy #[id number], Partial fill upon patient request if the prescription is for a schedule II opioid drug.,... Start Date: 12/29/21 Status: Ordered Problem List Condition Effective Dates Status Health Status Inform ant Acne(Confirmed) Active COVID-19(Confirmed) Active Dizzy spells(Confirmed) Active Headache(Confirmed) Active History of gestational hypertension(Confirmed) Active Non-Faroese speaking patient(Confirmed) Active Vital Signs Most recent to oldest [Reference Range]: 1 2 Height 166 cm (01/28/22 12:11 PM) Weight 70.1 kg (01/28/22 12:11 PM) Oxygen Saturation [94-100 %] 98 % (01/28/22 12:11 PM) 100 % (01/28/22 12:00 PM) Pulse Rate [55-90 bpm] 86 bpm (01/28/22 12:11 PM) 88 bpm (01/28/22 12:00 PM) Body Mass Index [18.5-24.99] 25.44 *H* (01/28/22 12:11 PM) Blood Pressure [90-138/55-84 mm Hg] 122/ 64mm Hg (01/28/22 12:11 PM) Respiratory Rate [16-30 br/min] 14 br/mi n *L* (01/28/22 12:11 PM) Temperature [96.8-100.4 DegF] 98.3 DegF (01/28/22 12:11 PM) Mode of Delivery (Oxygen) Room air (01/28/22 12:11 PM) Room air (01/28/22 12:00 PM) Blood pressure sites Arm, right (01/28/22 12:11 PM) Temperature Route Oral (01/28/22 12:11 PM) Weight Obtained Via Standing scale (01/28/22 12:11 PM) Social History Social History Type Response Smoking Status Never (less than 100 in lifetime) entered on: 08/10/20 Sex Care Team Personnel Name: Codie Bran NP Address: [address] [place] [address]
--- OUTSIDE RECORDS SUMMARY | 2023-10-25 10:48 | XMS_ITS | Continuity of Care Document ---
Author Organization [facility] ter Address [address] [place] [address]- Care Team Providers Care Magistrate Name Role Phone Yina PERRY, Codie Primary Care Physician Encounter [facility] Date(s): 07/03/23 - 08/03/[address] [address] Attending Physician: Frederick Hou MD Admitting Physician: Frederick Hou MD Referring Physician: Peyton Dyson MD Allergies, Adverse Reactions, Alerts No Known [...] vaccine, inactivated 06/08/13 Singh rded SARS-CoV-2 mRNA ([id number]) vax 06/27/21 Recorded SARS-CoV-2 (COVID-19) mRNA BNT-162b2 [...] 14:42:00 EDT, Powder, Route to Pharmacy Electronically, [id number], [facility]/pharmacy #[id number], 166, cm, 02/27/23 14:02:00 EDT, Height,... Start Date: 02/27/23 Status: Ordered albuterol CFC free 90 mcg/inh inhalation aerosol 2, puffs, Inhalation, Every 6 hours, PRN, # 8.5 Gm, Refills 4, Tot. Refills 4, Maintenance, 02/13/23 15:05:00 EDT, Route to Pharmacy Electronically, [id number], [facility]/pharmacy#[id number], 166, cm, 02/13/23 14:58:00 EDT, Height, 70.8... Start Date: 02/13/23 Status: Ordered albuterol-ipratropium 3 mg-0.5 mg/3 ml inhalation solution See Instructions, 3 mL Inhalation 4 times a day prn wheezing., # 90 mL, 11 Refills, Maintenance, 02/27/23 14:58:00 EDT, Solution, [facility]/pharmacy #[id number], Partial fill upon patient request if the prescription is for a schedule II opioid drug., 3 mL Inhalat... Start Date: 02/27/23 Status: Ordered fluticasone 50 mcg/inh nasal spray 1 sprays, Nares, Both, 2 times a day, # 16 Gm, 0 Refills, Maintenance, 03/05/23 14:51:00 EDT, [place], [facility]acy #[id number], Partial fill upon patient request [...] 02/13/23 15:07:00 EDT, Route to Pharmacy Electronically, [facility]/pharmacy #[id number], Partial fill upon patient request if the prescription is for a schedule II opioid drug... Start Date: 02/13/23 Stop Date: 08/12/23 Status: Ordered Tylenol 325 mg oral capsule 2 capsule = 650 mg, By Mouth, Every 4 hours, PRN as needed for pain, # 90 capsule, 0 Refills, Maintenance, 01/16/23 16:38:00 EDT, Capsule, [facility]/pharmacy #[id number], Partial fill upon patient request if theprescription is for a schedule II opioid drug., 166... Start Date: 01/16/23 Status: Ordered Zithromax Z-Elieso 250 mg oral tablet 1 pack/packet, By Mouth, Once, # 6 tablet, 0 Refills, Soft Stop, 02/13/23 15:05:00 EDT, Tablet, [facility]/pharmacy #[id number], Partial fill upon patient request if the prescription is for a schedule II opioid drug., 166, cm, 02/13/23 14:58:00 EDT, Height, 70.8,... Start Date: 02/13/23 Status: Ordered Problem List Condition Confirmation Course Effective Dates Status Health St atus Informant Acne Confirmed Active Dizzy spells Confirmed Active Headache Confirmed Active History of gestational hypertension Confirmed Active Non-Bangladeshi speaking patient Confirmed Active Social History Social History Type Response Smoking Status Never (less than 100 in lifetime) entered on: 08/10/20 Sex Patient Care team information Care Team Personnel Name: Codie Bran NP Position: [facility] PCO Associate Professional Member Role: PCP Address: Address: [address] [place] [address]- Care Team Related Persons Name: JONO WADSWORTH Address: [address] [address] Name: SYD MENDEZ Address: [address] [address] Name: MAEVE RODRIGUEZ Address: [address] Address: [address] [address] [place] Name: CHAGO CUENCA Address: [address] [address]
--- OUTSIDE RECORDS SUMMARY | 2023-10-25 10:48 | XMS_ITS | Continuity of Care Document ---
Author Organization [facility] Address [address] [place] [address]- Care Team Providers Care Advisory Internship Name Role Phone Yina PERRY, Codie Primary Care Physician [facility] Date[facility]s): 01/10/21 - 02/09/[address] [address] [place] Allergies, Adverse Reactions, Alerts Substance Reaction Severity [...] 08/29/20 13:34:00 EDT, Route to Pharmacy Electronically, [facility] #[id number], Partial fill upon patient request if the pres... Start Date: 08/29/20 Status: Ordered ferrous sulfate 325 mg oral enteric coated tablet 325 mg, 1, tablet, By Mouth, 3 times a day, # 90 tablet, Refills 4, Tot. Refills 4, Maintenance, 11/25/20 16:25:00 EDT, Route to Pharmacy Electronically, [facility] #[id number], Partial fill upon patient request if the prescription is for a sched... Start Date: 11/25/20 Status: Ordered Multivitamins with Folic Acid 1 mg oral tablet 1 tablet, By Mouth, Daily, # 90 tablet, 3 Refills, Maintenance, 11/02/20 8:41:00 EDT, Tablet, [facility] #[id number], Partial fill upon patient request if the prescription is for a schedule II opioid drug., 1 tablet By Mouth Daily,x90 days, 163,... Start Date: 11/02/20 Stop Date: 10/28/21 Status: Ordered Tylenol 325 mg oral capsule 1 capsule = 325 mg, By Mouth, Every 4 hours, PRN Pain , Mild, # 20 capsule, 0 Refills, Acute 03/01/21 11:38:00 EDT, 01/30/21 11:37:00 EDT, Capsule, [facility] #[id number], Partial fill upon patient request if the [...]
--- OUTSIDE RECORDS SUMMARY | 2023-10-25 10:48 | XMS_ITS | Continuity of Care Document ---
Author Organization [facility] Address [address] [place] [address]- Care Team Providers Care Electric Vehicle Electrician Name Role Phone Yina PERRY, Codie Primary Care Physician [facility] Date(s): 11/27/21 - 02/03/[address] [address]- Attending Physician: Codie Bran NP Admitting Physician: [...] 0 Refills, Maintenance, 12/29/21 15:49:00 EDT, [place], [facility]/pharmacy #[id number], Partial fill upon patient request if the prescription is for a schedule II opioid drug., 1 lozenge By Mouth... Start Date: 12/29/21 Status: Ordered ibuprofen 600 mg oral tablet 600 mg, 1, tablet, By Mouth, Every 6 hours, PRN, # 20 tablet, Refills 0, Tot. Refills 0, Maintenance, Pain , Moderate, 12/29/21 15:51:00 EDT, Route to Pharmacy Electronically, [facility]/pharmacy #[id number], Partial fill upon patient request if the prescription i... Start Date: 12/29/21 Status: Ordered Multivitamins with Folic Acid 1 mg oral tablet 1 tablet, By Mouth, Daily, # 90 tablet, 3 Refills, Maintenance, 11/28/21 13:23:00 EDT, Tablet, [facility] #[id number], Partial fill upon patient request if the [...] Refills, Maintenance, 12/29/21 15:49:00 EDT, ER Tablet, [id number], Partial fill upon patient request if the prescription is for a schedule II opioid drug.,... Start Date: 12/29/21 Status: Ordered Problem List Condition Effective Dates Status Health Status Inform ant Acne(Confirmed) Active COVID-19(Confirmed) Active Dizzy spells(Confirmed) Active Headache(Confirmed) Active History of gestational hypertension(Confirmed) Active Non-[place] Islander speaking patient(Confirmed) Active Social History Social History Type Response Smoking Status Never (less than 100 in lifetime) entered on: 08/10/20 Sex Care Team Personnel Name: Codie Bran NP Address: [address] [place] [address]
--- OUTSIDE RECORDS SUMMARY | 2023-10-25 10:48 | XMS_ITS | Continuity of Care Document ---
Author Organization [facility] Address [address] [place] [address]- Care Team Providers Care Test Rack Operator Name Role Phone Yina PERRY, Codie Primary Care Physician [phone] [facility]counter [facility] Date(s): 03/16/21 - 04/15/[address] [address] Allergies, Adverse Reactions, Alerts Substance [...] 02/16/21 8:25:00 EDT, Route to Pharmacy Electronically, [facility] #[id number], Partial fill upon patient request i... Start Date: 02/16/21 Status: Ordered aspirin 81 mg oral tablet, chewable 162 mg, 2, tablet, Chew, Daily, continue until 2 weeks , # 60 tablet, Refills 8, Tot. Refills 8, Maintenance, 08/29/20 13:34:00 EDT, Route to Pharmacy Electronically, [facility] #[id number], Partial fill upon patient request if the pres... Start Date: 08/29/20 Status: Ordered docusate sodium 100 mg oral capsule 1 capsule = 100 mg, By Mouth, 2 times a day, PRN Constipation, # 60 capsule, 0 Refills, Maintenance, 02/16/21 8:26:00 EDT, Capsule, [facility] #[id number], Partial fill upon patient request if the prescription is for a schedule II opioid drug., 1... Start Date: 02/16/21 Status: Ordered ferrous sulfate 325 mg oral enteric coated tablet 325 mg, By Mouth, 3 times a day, # 90 tablet, Refills 1, Tot. Refills 1, Maintenance, 02/16/21 8:28:00 EDT, Route to Pharmacy Electronically, [facility] #[id number], Partial fill upon patient request if the prescription is for a schedule II opioi... Start Date: 02/16/21 Status: Ordered ibuprofen 800 mg oral tablet 800 mg, 1, tablet, By Mouth, Every 8 hours, PRN, not to exceed 3200 mg/day, # 60 tablet, Refills 0,Tot. Refills 0, Maintenance, Pain , Moderate, 02/16/21 8:26:00 EDT, Route to Pharmacy Electronically, [facility] #[id number], Partial fill upon pa... Start Date: 02/16/21 Status: Ordered Multivitamins with Folic Acid 1 mg oral tablet 1 tablet, By Mouth, Daily, # 90 tablet, 3 Refills, Maintenance, 11/02/20 8:41:00 EDT, Tablet, [facility] #[id number], Partial fill upon patient request if the prescription is for a schedule II opioid drug., 1 tablet By Mouth Daily,x90 days, 163,... Start Date: 11/02/20 Stop Date: 10/28/21 Status: Ordered Problem List Condition Effective Dates Status Health Status Inform ant Acne(Confirmed) Active Anemia of (Confirmed) Active Dizzy spells(Confirmed) Active Headache(Confirmed) Active History of gestational hypertension(Confirmed) Active Non-Chadian speaking patient(Confirmed) Active Right leg pain(Confirmed) Active (Confirmed) Active Social History Social History Type Response Smoking Status Never (less than 100 in lifetime) entered on: 08/10/20 Sex
--- OUTSIDE RECORDS SUMMARY | 2023-10-25 10:48 | XMS_ITS | Continuity of Care Document ---
Author Organization [facility] Address [address] [place] [address]- Care Team Providers Care Spectrographic Analyst Name Role Phone Yina PERRY, Codie Primary Care Physician Encounter [facility] [place] Date(s): 03/05/23 - 04/04/23 [facility] [address] [place], [place] [address] Attending Physician: Greg Canales Admitting Physician: Admtr, Greg Referring Physician: Admtr, Ar8 Allergies, Adverse Reactions, [...] vaccine, inactivated 06/08/13 Singh rded SARS-CoV-2 mRNA ([id number]) vax 06/27/21 Recorded SARS-CoV-2 (COVID-19) mRNA BNT-162b2 [...] 14:42:00 EDT, Powder, Route to Pharmacy Electronically, [id number], [facility]/pharmacy #[id number], 166, cm, 02/27/23 14:02:00 EDT, Height,... Start Date: 02/27/23 Status: Ordered albuterol CFC free 90 mcg/inh inhalation aerosol 2, puffs, Inhalation, Every 6 hours, PRN, # 8.5 Gm, Refills 4, Tot. Refills 4, Maintenance, 02/13/23 15:05:00 EDT, Route to Pharmacy Electronically, [id number], [facility]/pharmacy#[id number], 166, cm, 02/13/23 14:58:00 EDT, Height, 70.8... Start Date: 02/13/23 Status: Ordered albuterol-ipratropium 3 mg-0.5 mg/3 ml inhalation solution See Instructions, 3 mL Inhalation 4 times a day prn wheezing., # 90 mL, 11 Refills, Maintenance, 02/27/23 14:58:00 EDT, Solution, [facility]/pharmacy #[id number], Partial fill upon patient request if the prescription is for a schedule II opioid drug., 3 mL Inhalat... Start Date: 02/27/23 Status: Ordered fluticasone 50 mcg/inh nasal spray 1 sprays, Nares, Both, 2 times a day, # 16 Gm, 0 Refills, Maintenance, 03/05/23 14:51:00 EDT, [place], [facility]/pharmacy #[id number], Partial fill upon patient request if the prescription is for a schedule II opioid drug., 1 sprays Nares, Both 2 times a day, 166,... Start Date: 03/05/23 Status: Ordered lidocaine 5% topical film 1 patch, Topically, Daily, PRN Pain , Mild, remove after 12 hours, # 13 each, 0 Refills, Maintenance, 01/16/23 16:19:00 EDT, Film, [facility]/pharmacy #[id number], Partial fill upon patient request [...] 02/13/23 15:07:00 EDT, Route to Pharmacy Electronically, [facility]/pharmacy #[id number], Partial fill upon patient request if the prescription is for a schedule II opioid drug... Start Date: 02/13/23 Stop Date: 08/12/23 Status: Ordered Tylenol 325 mg oral capsule 2 capsule = 650 mg, By Mouth, Every 4 hours, PRN as needed for pain, # 90 capsule, 0 Refills, Maintenance, 01/16/23 16:38:00 EDT, Capsule, [facility]/pharmacy #[id number], Partial fill upon patient request if theprescription is for a schedule II opioid drug., 166... Start Date: 01/16/23 Status: Ordered Zithromax Z-Eliseo 250 mg oral tablet 1 pack/packet, By Mouth, Once, # 6 tablet, 0 Refills, Soft Stop, 02/13/23 15:05:00 EDT, Tablet, [facility]/pharmacy #[id number], Partial fill upon patient request if the prescription is for a schedule II opioid drug., 166, cm, 02/13/23 14:58:00 EDT, Height, 70.8,... Start Date: 02/13/23 Status: Ordered Problem List Condition Confirmation Course Effective Dates Status Health St atus Informant Acne Confirmed Active Dizzy spells Confirmed Active Headache Confirmed Active History of gestational hypertension Confirmed Active Non-Citizen Of [place] speaking patient Confirmed Active Social History Social History Type Response Smoking Status Never (less than 100 in lifetime) entered on: 08/10/20 Sex Patient Care team information Care Team Personnel Name: Codie Bran NP Position: [facility] PCO Associate Professional Member Role: PCP Address: Address: [address] [place] [address] Care Team Related Persons Name: JONO WADSWORTH Address: home [address] [place] [address] Name: SYD MENDEZ Address: [place] [address] Name: MAEVE RODRIGUEZ Address: [address] Address: [address]
--- OUTSIDE RECORDS SUMMARY | 2023-10-25 10:48 | XMS_ITS | Continuity of Care Document ---
Author Organization [facility] Address [address] [place] [address]- Care Team Providers Care Photogrammetric Compilation Specialist Name Role Phone Amilcar REED, Juan Pizano Primary Care Physician [facility]): 11/25[facility]20 - 12/25/20 [facility] [address] [address] Allergies, Adverse Reactions, Alerts Substance Reaction Severity [...] 08/29/20 13:34:00 EDT, Route to Pharmacy Electronically, [facility][id number], Partial fill upon patient request if the pres... Start Date: 08/29/20 Status: Ordered ferrous sulfate 325 mg oral enteric coated tablet 325 mg, 1, tablet, By Mouth, 3 times a day, # 90 tablet, Refills 4, Tot. Refills 4, Maintenance, 11/25/20 16:25:00 EDT, Route to Pharmacy Electronically, [facility] #[id number], Partial fill upon patient request if the prescription is for a sched... Start Date: 11/25/20 Status: Ordered Multivitamins with Folic Acid 1 mg oral tablet 1 tablet, By Mouth, Daily, # 90 tablet, 3 Refills, Maintenance, 11/02/20 8:41:00 EDT, Tablet, [facility] #[id number], Partial fill upon patient request if the [...]
--- OUTSIDE RECORDS SUMMARY | 2023-10-25 10:48 | XMS_ITS | Continuity of Care Document ---
Author Organization [facility] Address [address] [place] [address]- Care Team Providers Care Voltage Inspector Name Role Phone Yina PERRY, Codie Primary Care Physician [facility] Date(s): 02/13/21 - 03/15/[address] [address] Allergies, Adverse Reactions, Alerts Substance [...] 02/16/21 8:25:00 EDT, Route to Pharmacy Electronically, [facility] #[id number], Partial fill upon patient request i... Start Date: 02/16/21 Status: Ordered aspirin 81 mg oral tablet, chewable 162 mg, 2, tablet, Chew, Daily, continue until 2 weeks , # 60 tablet, Refills 8, Tot. Refills 8, Maintenance, 08/29/20 13:34:00 EDT, Route to Pharmacy Electronically, [facility] #[id number], Partial fill upon patient request if the pres... Start Date: 08/29/20 Status: Ordered docusate sodium 100 mg oral capsule 1 capsule = 100 mg, By Mouth, 2 times a day, PRN Constipation, # 60 capsule, 0 Refills, Maintenance, 02/16/21 8:26:00 EDT, Capsule, [facility] #[id number], Partial fill upon patient request if the prescription is for a schedule II opioid drug., 1... Start Date: 02/16/21 Status: Ordered ferrous sulfate 325 mg oral enteric coated tablet 325 mg, By Mouth, 3 times a day, # 90 tablet, Refills 1, Tot. Refills 1, Maintenance, 02/16/21 8:28:00 EDT, Route to Pharmacy Electronically, [facility] #[id number], Partial fill upon patient request if the prescription is for a schedule II opioi... Start Date: 02/16/21 Status: Ordered ibuprofen 800 mg oral tablet 800 mg, 1, tablet, By Mouth, Every 8 hours, PRN, not to exceed 3200 mg/day, # 60 tablet, Refills 0,Tot. Refills 0, Maintenance, Pain , Moderate, 02/16/21 8:26:00 EDT, Route to Pharmacy Electronically, [facility] #[id number], Partial fill upon pa... Start Date: 02/16/21 Status: Ordered Multivitamins with Folic Acid 1 mg oral tablet 1 tablet, By Mouth, Daily, # 90 tablet, 3 Refills, Maintenance, 11/02/20 8:41:00 EDT, Tablet, [facility] #[id number], Partial fill upon patient request if the prescription is for a schedule II opioid drug., 1 tablet By Mouth Daily,x90 days, 163,... Start Date: 11/02/20 Stop Date: 10/28/21 Status: Ordered Problem List Condition Effective Dates Status Health Status Inform ant Acne(Confirmed) Active Anemia of (Confirmed) Active Dizzy spells(Confirmed) Active Headache(Confirmed) Active History of gestational hypertension(Confirmed) Active Non-Romansh speaking patient(Confirmed) Active Right leg pain(Confirmed) Active (Confirmed) Active Social History Social History Type Response Smoking Status Never (less than 100 in lifetime) entered on: 08/10/20 Sex
--- OUTSIDE RECORDS SUMMARY | 2023-10-25 10:48 | XMS_ITS | Continuity of Care Document ---
Author Organization [facility] ter Address [address] [place] [address]- Care Team Providers Care Marketing Production Manager Name Role Phone Yina PERRY, Codie Primary Care Physician [facility] Date[facility] 10[facility] - 10/25/[address] [address]- [facility] Discharge Disposition: A-D/C Home Attending Physician: Sanford Cadet MD Admitting Physician: Sanford Cadet MD Referring Physician: Not on Staff, Referring [...] 06/12/19 23:33:00 EST, Route to Pharmacy Electronically, [facility] #[id number], 163, cm, 06/12/19 20:18:00 EST, Height Start Date: 06/12/19 Status: Ordered Tylenol 325 mg oral tablet 325 mg, 1, tablet, By Mouth, Every 4 hours, PRN, # 60 tablet, Refills 0, Tot. Refills 0, Maintenance, for pain, 06/12/19 23:33:00 EST, Route to Pharmacy Electronically, [facility] #[id number], 163, cm, 06/12/19 20:18:00 EST, Height Start Date: 06/12/19 Status: Ordered Problem List Condition Effective Dates Status Health Status Inform ant Acne(Confirmed) Active Contraception(Confirmed) Active Distressed about housing issues(Confirmed) Active Positive test(Confirmed) Active Vital Signs Most recent to oldest [Reference Range]: 1 2 3 Oxygen Saturation [94-100 %] 100 % (10/25/19 4:37 AM) 100 % (10/25/19 1:57 AM) Pulse Rate [55-90 bpm] 75 bpm (10/25/19 4:37 AM) 84 bpm (10/25/19 1:57 AM) Blood Pressure [90-138/55-84 mm Hg] 107/66mm Hg (10/25/19 4:37 AM) 125/82mm Hg (10/25/19 1:57 AM) Respiratory Rate [16-30 br/min] 18 br/min (10/25/19 4:45 AM) 18 br/min (10/25/19 4:37 AM) 16 br/min (10/25/19 1:57 AM) Temperature [96.8-100.4 DegF] 98.4 DegF (10/25/19 4:37 AM) 98.2 DegF (10/25/19 1:57 AM) Mode of Delivery (Oxygen) Room air (10/25/19 4:37 AM) Room air (10/25/19 1:57 AM) Temperature Route Oral (10/25/19 4:37 AM) Oral (10/25/19 1:57 AM) Social History Social History Type Response Smoking Status Never smoker; Tobacc o user in household: No; Type: Cigarettes entered on: 09/29/14 Sex
--- OUTSIDE RECORDS SUMMARY | 2023-10-25 10:48 | XMS_ITS | Continuity of Care Document ---
Author Organization [facility] Address [address] [place] [address]- Care Team Providers Care Lombardi Developer Name Role Phone Yina PERRY, Codie Primary Care Physician [phone] [facility]counter [facility] Date[facility]s): 04/12/21 - 05/12/[address] [address] Allergies, Adverse Reactions, Alerts Substance Reaction [...] 02/16/21 8:25:00 EDT, Route to Pharmacy Electronically, [facility] #[id number], Partial fill upon patient request i... Start Date: 02/16/21 Status: Ordered aspirin 81 mg oral tablet, chewable 162 mg, 2, tablet, Chew, Daily, continue until 2 weeks , # 60 tablet, Refills 8, Tot. Refills 8, Maintenance, 08/29/20 13:34:00 EDT, Route to Pharmacy Electronically, [facility] #[id number], Partial fill upon patient request if the pres... Start Date: 08/29/20 Status: Ordered docusate sodium 100 mg oral capsule 1 capsule = 100 mg, By Mouth, 2 times a day, PRN Constipation, # 60 capsule, 0 Refills, Maintenance, 02/16/21 8:26:00 EDT, Capsule, [facility] #[id number], Partial fill upon patient request if the prescription is for a schedule II opioid drug., 1... Start Date: 02/16/21 Status: Ordered ferrous sulfate 325 mg oral enteric coated tablet 325 mg, By Mouth, 3 times a day, # 90 tablet, Refills 1, Tot. Refills 1, Maintenance, 02/16/21 8:28:00 EDT, Route to Pharmacy Electronically, [facility] #[id number], Partial fill upon patient request if the prescription is for a schedule II opioi... Start Date: 02/16/21 Status: Ordered ibuprofen 800 mg oral tablet 800 mg, 1, tablet, By Mouth, Every 8 hours, PRN, not to exceed 3200 mg/day, # 60 tablet, Refills 0,Tot. Refills 0, Maintenance, Pain , Moderate, 02/16/21 8:26:00 EDT, Route to Pharmacy Electronically, [facility] #[id number], Partial fill upon pa... Start Date: 02/16/21 Status: Ordered Multivitamins with Folic Acid 1 mg oral tablet 1 tablet, By Mouth, Daily, # 90 tablet, 3 Refills, Maintenance, 11/02/20 8:41:00 EDT, Tablet, [facility][id number], Partial fill upon patient request if the prescription is for a schedule II opioid drug., 1 tablet By Mouth Daily,x90 days, 163,... Start Date: 11/02/20 Stop Date: 10/28/21 Status: Ordered Problem List Condition Effective Dates Status Health Status Inform ant Acne(Confirmed) Active Anemia of (Confirmed) Active Dizzy spells(Confirmed) Active Headache(Confirmed) Active History of gestational hypertension(Confirmed) Active Non-Marshallese speaking patient(Confirmed) Active Right leg pain(Confirmed) Active (Confirmed) Active Social History Social History Type Response Smoking Status Never (less than 100 in lifetime) entered on: 08/10/20 Sex
--- OUTSIDE RECORDS SUMMARY | 2023-10-25 10:48 | XMS_ITS | Continuity of Care Document ---
Author Organization [facility] ter Address [address] [place] [address]- Care Team Providers Care Plumbing Drafter Name Role Phone Yina PERRY, Codie Primary Care Physician Encounter [facility] Date(s): 07/23/20 - 07/23/[address] [address] Discharge Disposition: A-D/C Home Attending Physician: Mart REED [OB], Zarina Garcia Admitting Physician: Mart REED [OB]Zarina Referring Physician: Mart REED [OB]Zarina Allergies, Adverse Reactions, Alerts Substance Reaction Severity [...] 1 Refills, Maintenance, 07/23/20 18:02:00 EST, Tablet, [facility] #[id number], Partial fill upon patient requestif the prescription is for a schedule II opioid drug.,... Start Date: 07/23/20 Status: Ordered Prenatabs Rx oral tablet 1 tablet, By Mouth, Daily, # 30 tablet, 10 Refills, Maintenance, 07/23/20 18:01:00 EST, Tablet, [facility] #[id number], Partial fill upon patient request if the prescription is for a schedule IIopioid drug., 1 tablet By Mouth Daily, 163, cm, 11/... Start Date: 07/23/20 Status: Ordered Tylenol 325 mg oral capsule 2 capsule = 650 mg, By Mouth, Every 6 hours, PRN as needed for pain, # 60 capsule, 1 Refills, Maintenance, 07/23/20 18:02:00 EST, Capsule, [facility] #[id number], Partial fill upon patient request if the prescription is for a schedule II opioid d... Start Date: 07/23/20 Status: Ordered Tylenol 325 mg oral tablet 975 mg, Tablet, By Mouth, Once, PRN for Headache, Routine, 07/23/20 16:34:00 EST Start Date: 07/23/20 Stop Date: 07/23/20 Status: Completed Unisom 25 mg oral tablet 1 tablet = 25 mg, By Mouth, Daily at bedtime, PRN for sleep, # 32 tablet, 1 Refills, Maintenance, 07/23/20 18:02:00 EST, Tablet, [facility] #[id number], Partial fill upon patient request if the prescription is for a schedule II opioid drug., 163,... Start Date: 07/23/20 Status: Ordered Vitamin B6 50 mg oral tablet 50 mg, 1, tablet, By Mouth, Daily, for 14 days, # 30 tablet, Refills 1, Tot. Refills 1, Acute 08/20/20 18:02:00 EDT, 07/23/20 18:02:00 EST, Route to Pharmacy Electronically, [facility] #[id number], Partial fill upon patient request if the prescri... Start Date: 07/23/20 Stop Date: 08/20/20 Status: Ordered Problem List Condition Effective Dates Status Health Status Inform ant Acne(Confirmed) Active Fever and chills(Confirmed) Active Procedures Procedure Date Related Diagnosis Body Site Status Tonsils obstructive Compl eted Vital Signs Most recent to oldest [Reference Range]: 1 2 Weight 69.4 kg (07/23/20 2:45 PM) Oxygen Saturation [94-100 %] 100 % (07/23/20 2:45 PM) Pulse Rate [55-90 bpm] 78 bpm (07/23/20 2:45 PM) Blood Pressure [90-138/55-84 mm Hg] 119/ 79mm Hg (07/23/20 2:45 PM) Respiratory Rate [16-30 br/min] 18 br/mi n (07/23/20 5:20 PM) 18 br/min (07/23/20 2:45 PM) Temperature [96.8-100.4 DegF] 98.6 DegF (07/23/20 2:45 PM) Mode of Delivery (Oxygen) Room air (07/23/20 2:45 PM) Blood pressure sites Arm, right 1 (07/23/20 2:45 PM) Temperature Route Oral (07/23/20 2:45 PM) Dry Weight 69.4 kg (07/23/20 2:45 PM) 1Result Comment: right upper arm measured 28cm Social History Social History Type Response Smoking Status Never smoker; Tobacc o user in household: No; Type: Cigarettes entered on: 09/29/14 Sex Female
--- OUTSIDE RECORDS SUMMARY | 2023-10-25 10:48 | XMS_ITS | Continuity of Care Document ---
Author Organization [facility] Address [address] [place] [address]- Care Team Providers Care Ordinary Seaman Name Role Phone Yina PERRY, Codie Primary Care Physician [facility] Date[facility]s): 11/10/21 - 12/10/21 [facility] [address] [address]- Attending Physician: Greg Canales Admitting Physician: Greg [...] 3 Refills, Maintenance, 11/28/21 13:23:00 EDT, Tablet, [facility] #[id number], Partial fill upon patient request if the prescription is for a schedule II opioid drug., 1 tablet By Mouth Daily,x90 days, 159,... Start Date: 11/28/21 Stop Date: 11/23/22 Status: Ordered Problem List Condition Effective Dates Status Health Status Inform ant Acne(Confirmed) Active COVID-19(Confirmed) Active Dizzy spells(Confirmed) Active Headache(Confirmed) Active History of gestational hypertension(Confirmed) Active Non-Ecuadorean speaking patient(Confirmed) Active Social History Social History Type Response Smoking Status Never (less than 100 in lifetime) entered on: 08/10/20 Sex
--- OUTSIDE RECORDS SUMMARY | 2023-10-25 10:48 | XMS_ITS | Continuity of Care Document ---
Author Organization [facility] Address [address] [place] [address]- Care Team Providers Care Edger Runner Name Role Phone Yina PERRY, Codie Primary Care Physician [facility] Date(s): 08/07/21 - 09/06/[address] [address] Allergies, Adverse Reactions, Alerts No Known Allergies [...] 02/16/21 8:25:00 EDT, Route to Pharmacy Electronically, [facility] #[id number], Partial fill upon patient request i... Start Date: 02/16/21 Status: Ordered aspirin 81 mg oral tablet, chewable 162 mg, 2, tablet, Chew, Daily, continue until 2 weeks , # 60 tablet, Refills 8, Tot. Refills 8, Maintenance, 08/29/20 13:34:00 EDT, Route to Pharmacy Electronically, [facility] #[id number], Partial fill upon patient request if the pres... Start Date: 08/29/20 Status: Ordered docusate sodium 100 mg oral capsule 1 capsule = 100 mg, By Mouth, 2 times a day, PRN Constipation, # 60 capsule, 0 Refills, Maintenance, 02/16/21 8:26:00 EDT, Capsule, [facility] #[id number], Partial fill upon patient request if the prescription is for a schedule II opioid drug., 1... Start Date: 02/16/21 Status: Ordered ferrous sulfate 325 mg oral enteric coated tablet 325 mg, By Mouth, 3 times a day, # 90 tablet, Refills 1, Tot. Refills 1, Maintenance, 02/16/21 8:28:00 EDT, Route to Pharmacy Electronically, [facility] #[id number], Partial fill upon patient request if the prescription is for a schedule II opioi... Start Date: 02/16/21 Status: Ordered ibuprofen 800 mg oral tablet 800 mg, 1, tablet, By Mouth, Every 8 hours, PRN, not to exceed 3200 mg/day, # 60 tablet, Refills 0,Tot. Refills 0, Maintenance, Pain , Moderate, 02/16/21 8:26:00 EDT, Route to Pharmacy Electronically, [facility] #[id number], Partial fill upon pa... Start Date: 02/16/21 Status: Ordered Multivitamins with Folic Acid 1 mg oral tablet 1 tablet, By Mouth, Daily, # 90 tablet, 3 Refills, Maintenance, 11/02/20 8:41:00 EDT, Tablet, [facility] #[id number], Partial fill upon patient request if the prescription is for a schedule II opioid drug., 1 tablet By Mouth Daily,x90 days, 163,... Start Date: 11/02/20 Stop Date: 10/28/21 Status: Ordered Problem List Condition Effective Dates Status Health Status Inform ant Acne(Confirmed) Active Anemia of (Confirmed) Active COVID-19(Confirmed) Active Dizzy spells(Confirmed) Active Headache(Confirmed) Active History of gestational hypertension(Confirmed) Active Non-Tajik speaking patient(Confirmed) Active Right leg pain(Confirmed) Active (Confirmed) Active Social History Social History Type Response Smoking Status Never (less than 100 in lifetime) entered on: 08/10/20 Sex
--- OUTSIDE RECORDS SUMMARY | 2023-10-25 10:48 | XMS_ITS | Continuity of Care Document ---
Author Organization [facility] Address [address] [place] [address]- Care Team Providers Care Chlorinator Name Role Phone Yina PERRY, Codie Primary Care Physician [facility] Date(s): 03/16/20 - 09/29/20 [facility] [address] [address] Attending Physician: Sara Reyes CNM Admitting Physician: Sara Reyes CNM Allergies, Adverse Reactions, Alerts Substance Reaction [...] 08/29/20 13:34:00 EDT, Route to Pharmacy Electronically, [facility] #[id number], Partial fill upon patient request if the pres... Start Date: 08/29/20 Status: Ordered ondansetron 4 mg oral tablet, disintegrating 1 tablet = 4 mg, By Mouth, Every 8 hours, PRN Nausea & Vomiting, # 30 tablet, 1 Refills, Maintenance, 07/23/20 18:02:00 EST, Tablet, [facility] #[id number], Partial fill upon patient requestif the prescription is for a schedule II opioid drug.,... Start Date: 07/23/20 Status: Ordered Prenatabs Rx oral tablet 1 tablet, By Mouth, Daily, # 30 tablet, 10 Refills, Maintenance, 07/23/20 18:01:00 EST, Tablet, [facility] #[id number], Partial fill upon patient request if the prescription is for a schedule IIopioid drug., 1 tablet By Mouth Daily, 163, cm, /... Start Date: 07/23/20 Status: Ordered Tylenol 325 mg oral capsule 2 capsule = 650 mg, By Mouth, Every 6 hours, PRN as needed for pain, # 60 capsule, 1 Refills, Maintenance, 07/23/20 18:02:00 EST, Capsule, [facility] #[id number], Partial fill upon patient request if the prescription is for a schedule II opioid d... Start Date: 07/23/20 Status: Ordered Unisom 25 mg oral tablet 1 tablet = 25 mg, By Mouth, Daily at bedtime, PRN for sleep, # 32 tablet, 1 Refills, Maintenance, 07/23/20 18:02:00 EST, Tablet, [facility] #[id number], Partial fill upon patient request if the [...]
--- OUTSIDE RECORDS SUMMARY | 2023-10-25 10:48 | XMS_ITS | Continuity of Care Document ---
Author Organization [facility] Address [address] [place] [address]- Care Team Providers Care Cannery Worker Name Role Phone Yina PERRY, Codie Primary Care Physician [facility] Date[facility]s): 01/01/21 - 01/31/21 [facility] [address] [address] Allergies, Adverse Reactions, Alerts Substance [...] 08/29/20 13:34:00 EDT, Route to Pharmacy Electronically, [facility] #[id number], Partial fill upon patient request if the pres... Start Date: 08/29/20 Status: Ordered ferrous sulfate 325 mg oral enteric coated tablet 325 mg, 1, tablet, By Mouth, 3 times a day, # 90 tablet, Refills 4, Tot. Refills 4, Maintenance, 11/25/20 16:25:00 EDT, Route to Pharmacy Electronically, [facility] #[id number], Partial fill upon patient request if the prescription is for a sched... Start Date: 11/25/20 Status: Ordered Multivitamins with Folic Acid 1 mg oral tablet 1 tablet, By Mouth, Daily, # 90 tablet, 3 Refills, Maintenance, 11/02/20 8:41:00 EDT, Tablet, [facility] #[id number], Partial fill upon patient request if the prescription is for a schedule II opioid drug., 1 tablet By Mouth Daily,x90 days, 163,... Start Date: 11/02/20 Stop Date: 10/28/21 Status: Ordered Tylenol 325 mg oral capsule 1 capsule = 325 mg, By Mouth, Every 4 hours, PRN Pain , Mild, # 20 capsule, 0 Refills, Acute 03/01/21 11:38:00 EDT, 01/30/21 11:37:00 EDT, Capsule, [facility] #[id number], Partial fill upon patient request if the [...]
--- OUTSIDE RECORDS SUMMARY | 2023-10-25 10:48 | XMS_ITS | Continuity of Care Document ---
Author Organization [facility] ter Address [address] [place] [address]- Care Team Providers Care Data Warehousing Manager Name Role Phone Yina PERRY, Codie Primary Care Physician [phone] Encounter [facility] Date(s): 07/03/23 - 07/03/[address] [email or web address] Attending Physician: Peyton Dyson MD Allergies, Adverse Reactions, [...] vaccine, inactivated 06/08/13 Singh rded SARS-CoV-2 mRNA ([id number]) vax 06/27/21 Recorded SARS-CoV-2 (COVID-19) mRNA BNT-162b2 [...] 14:42:00 EDT, Powder, Route to Pharmacy Electronically, [id number], [facility]/pharmacy #[id number], 166, cm, 02/27/23 14:02:00 EDT, Height,... Start Date: 02/27/23 Status: Ordered albuterol CFC free 90 mcg/inh inhalation aerosol 2, puffs, Inhalation, Every 6 hours, PRN, # 8.5 Gm, Refills 4, Tot. Refills 4, Maintenance, 02/13/23 15:05:00 EDT, Route to Pharmacy Electronically, [id number], [facility]/pharmacy#[id number], 166, cm, 02/13/23 14:58:00 EDT, Height, 70.8... Start Date: 02/13/23 Status: Ordered albuterol-ipratropium 3 mg-0.5 mg/3 ml inhalation solution See Instructions, 3 mL Inhalation 4 times a day prn wheezing., # 90 mL, 11 Refills, Maintenance, 02/27/23 14:58:00 EDT, Solution, [facility]/pharmacy #[id number], Partial fill upon patient request if the prescription is for a schedule II opioid drug., 3 mL Inhalat... Start Date: 02/27/23 Status: Ordered fluticasone 50 mcg/inh nasal spray 1 sprays, Nares, Both, 2 times a day, # 16 Gm, 0 Refills, Maintenance, 03/05/23 14:51:00 EDT, [place], [facility] #[id number], Partial fill upon patient request if the prescription is for a schedule II opioid drug., 1 sprays Nares, Both 2 times a day, 166,... Start Date: 03/05/23 Status: Ordered lidocaine 5% topical film 1 patch, Topically, Daily, PRN Pain , Mild, remove after 12 hours, # 13 each, 0 Refills, Maintenance, 01/16/23 16:19:00 EDT, Film, [facility]/pharmacy #[id number], Partial fill upon patient request [...] Active History of gestational hypertension Confirmed Active Non-Indonesian speaking patient Confirmed Active Social History Social History Type Response Smoking Status Never (less than 100 in lifetime) entered on: 08/10/20 Sex Patient Care team information Care Team Personnel Name: Codie Bran NP Position: [facility] PCO Associate Professional Member Role: PCP Address: Address: [address] [place] [address]- Care Team Related Persons Name: JONO WADSWORTH Address: home [address] [place] [address] Name: SYD MENDEZ Address: [address] [address] Name: MAEVE RODRIGUEZ Address: [id number] Address: [address] [address] [place] Name: CHAGO CUENCA Address: [place] [address]
--- OUTSIDE RECORDS SUMMARY | 2023-10-25 10:48 | XMS_ITS | Continuity of Care Document ---
Author Organization [facility] Address [address] [place] [address]- Care Team Providers Care Digitizer Name Role Phone Yina PERRY, Codie Primary Care Physician Encounter [facility] Date(s): 06/17/23 - 07/17/[address] [address]- Allergies, Adverse Reactions, Alerts No Known Allergies [...] vaccine, inactivated 06/08/13 Singh rded SARS-CoV-2 mRNA ([id number]) vax 06/27/21 Recorded SARS-CoV-2 (COVID-19) mRNA BNT-162b2 [...] 14:42:00 EDT, Powder, Route to Pharmacy Electronically, [id number], [facility]/pharmacy #[id number], 166, cm, 02/27/23 14:02:00 EDT, Height,... Start Date: 02/27/23 Status: Ordered albuterol CFC free 90 mcg/inh inhalation aerosol 2, puffs, Inhalation, Every 6 hours, PRN, # 8.5 Gm, Refills 4, Tot. Refills 4, Maintenance, 02/13/23 15:05:00 EDT, Route to Pharmacy Electronically, [id number], [facility]/pharmacy#[id number], 166, cm, 02/13/23 14:58:00 EDT, Height, 70.8... Start Date: 02/13/23 Status: Ordered albuterol-ipratropium 3 mg-0.5 mg/3 ml inhalation solution See Instructions, 3 mL Inhalation 4 times a day prn wheezing., # 90 mL, 11 Refills, Maintenance, 02/27/23 14:58:00 EDT, Solution, [facility]/pharmacy #[id number], Partial fill upon patient request if the prescription is for a schedule II opioid drug., 3 mL Inhalat... Start Date: 02/27/23 Status: Ordered fluticasone 50 mcg/inh nasal spray 1 sprays, Nares, Both, 2 times a day, # 16 Gm, 0 Refills, Maintenance, 03/05/23 14:51:00 EDT, [place], [id number], Partial fill upon patient request if the prescription is for a schedule II opioid drug., 1 sprays Nares, Both 2 times a day, 166,... Start Date: 03/05/23 Status: Ordered lidocaine 5% topical film 1 patch, Topically, Daily, PRN Pain , Mild, remove after 12 hours, # 13 each, 0 Refills, Maintenance, 01/16/23 16:19:00 EDT, Film, [facility]/pharmacy #[id number], Partial fill upon patient [...] 02/13/23 15:07:00 EDT, Route to Pharmacy Electronically, [facility]/pharmacy #[id number], Partial fill upon patient [...] Active History of gestational hypertension Confirmed Active Non-Jamaican speaking patient Confirmed Active Social History Social History Type Response Smoking Status Never (less than 100 in lifetime) entered on: 08/10/20 Sex Patient Care team information Care Team Personnel Name: Codie Bran NP Position: [facility] PCO Associate Professional Member Role: PCP Address: Address: [address] [place] [address]- Care Team Related Persons Name: JONO WADSWORTH Address: home [address] [place] [address] Name: SYD MENDEZ Address: home [address] [place] [address] Name: MAEVE RODRIGUEZ Address: [address] Address: [address] [address] [place] Name: CHAGO CUENCA Address: [place] [address]
--- OUTSIDE RECORDS SUMMARY | 2023-10-25 10:49 | XMS_ITS | Continuity of Care Document ---
Author Organization [facility] Address [address] [place] [address]- Care Team Providers Care Telegraph Mechanic Name Role Phone Yina PERRY, Codie Primary Care Physician [phone] [facility] Date[facility]): 02/[facility]/21 - 03/05/[address] [address] Allergies, Adverse Reactions, Alerts Substance [...] 02/16/21 8:25:00 EDT, Route to Pharmacy Electronically, [facility] #[id number], Partial fill upon patient request i... Start Date: 02/16/21 Status: Ordered aspirin 81 mg oral tablet, chewable 162 mg, 2, tablet, Chew, Daily, continue until 2 weeks , # 60 tablet, Refills 8, Tot. Refills 8, Maintenance, 08/29/20 13:34:00 EDT, Route to Pharmacy Electronically, [facility] #[id number], Partial fill upon patient request if the pres... Start Date: 08/29/20 Status: Ordered docusate sodium 100 mg oral capsule 1 capsule = 100 mg, By Mouth, 2 times a day, PRN Constipation, # 60 capsule, 0 Refills, Maintenance, 02/16/21 8:26:00 EDT, Capsule, [facility] #[id number], Partial fill upon patient request if the prescription is for a schedule II opioid drug., 1... Start Date: 02/16/21 Status: Ordered ferrous sulfate 325 mg oral enteric coated tablet 325 mg, By Mouth, 3 times a day, # 90 tablet, Refills 1, Tot. Refills 1, Maintenance, 02/16/21 8:28:00 EDT, Route to Pharmacy Electronically, [facility] #[id number], Partial fill upon patient request if the prescription is for a schedule II opioi... Start Date: 02/16/21 Status: Ordered ibuprofen 800 mg oral tablet 800 mg, 1, tablet, By Mouth, Every 8 hours, PRN, not to exceed 3200 mg/day, # 60 tablet, Refills 0,Tot. Refills 0, Maintenance, Pain , Moderate, 02/16/21 8:26:00 EDT, Route to Pharmacy Electronically, [facility] #[id number], Partial fill upon pa... Start Date: 02/16/21 Status: Ordered Multivitamins with Folic Acid 1 mg oral tablet 1 tablet, By Mouth, Daily, # 90 tablet, 3 Refills, Maintenance, 11/02/20 8:41:00 EDT, Tablet, [facility] #[id number], Partial fill upon patient request if the prescription is for a schedule II opioid drug., 1 tablet By Mouth Daily,x90 days, 163,... Start Date: 11/02/20 Stop Date: 10/28/21 Status: Ordered Problem List Condition Effective Dates Status Health Status Inform ant Acne(Confirmed) Active Anemia of (Confirmed) Active Dizzy spells(Confirmed) Active Headache(Confirmed) Active History of gestational hypertension(Confirmed) Active Non-Amharic speaking patient(Confirmed) Active Right leg pain(Confirmed) Active (Confirmed) Active Social History Social History Type Response Smoking Status Never (less than 100 in lifetime) entered on: 08/10/20 Sex
--- OUTSIDE RECORDS SUMMARY | 2023-10-25 10:49 | XMS_ITS | Continuity of Care Document ---
Author Organization [facility] Address [address] [place] [address]- Care Team Providers Care Twisting Press Operator Name Role Phone Yina PERRY, Codie Primary Care Physician [facility] Date[facility]s): 12/27/20 - 01/26/[address] [address] Attending Physician: AdmGreg smith Admitting Physician: [...] 08/29/20 13:34:00 EDT, Route to Pharmacy Electronically, [facility] #[id number], Partial fill upon patient request if the pres... Start Date: 08/29/20 Status: Ordered ferrous sulfate 325 mg oral enteric coated tablet 325 mg, 1, tablet, By Mouth, 3 times a day, # 90 tablet, Refills 4, Tot. Refills 4, Maintenance, 11/25/20 16:25:00 EDT, Route to Pharmacy Electronically, [facility] #[id number], Partial fill upon patient request if the prescription is for a sched... Start Date: 11/25/20 Status: Ordered Multivitamins with Folic Acid 1 mg oral tablet 1 tablet, By Mouth, Daily, # 90 tablet, 3 Refills, Maintenance, 11/02/20 8:41:00 EDT, Tablet, [facility] #[id number], Partial fill upon patient request if the [...]
--- OUTSIDE RECORDS SUMMARY | 2023-10-25 10:49 | XMS_ITS | Continuity of Care Document ---
Author Organization [facility] Address [address] [place] [address]- Care Team Providers Care Face Hardener Name Role Phone Yina PERRY, Codie Primary Care Physician [phone] [facility]s): 11/02/21 - 12/02/21 [facility] [address] [place] [address]- Allergies, Adverse Reactions, Alerts No Known Allergies [...] 3 Refills, Maintenance, 11/28/21 13:23:00 EDT, Tablet, [facility] #[id number], Partial fill upon patient request if the prescription is for a schedule II opioid drug., 1 tablet By Mouth Daily,x90 days, 159,... Start Date: 11/28/21 Stop Date: 11/23/22 Status: Ordered Problem List Condition Effective Dates Status Health Status Inform ant Acne(Confirmed) Active COVID-19(Confirmed) Active Dizzy spells(Confirmed) Active Headache(Confirmed) Active History of gestational hypertension(Confirmed) Active Non-Uzbek speaking patient(Confirmed) Active Social History Social History Type Response Smoking Status Never (less than 100 in lifetime) entered on: 08/10/20 Sex
--- OUTSIDE RECORDS SUMMARY | 2023-10-25 10:49 | XMS_ITS | Continuity of Care Document ---
Author Organization [facility] Address [address] [place] [address]- Care Team Providers Care Adjunct Instructor Name Role Phone Yina PERRY, Codie Primary Care Physician [facility] Date[facility]s): 11/06/22 - 12/06/[address] [address] Allergies, Adverse Reactions, Alerts No [...] Team Personnel Name: Codie Bran NP Position: [facility] PCO Associate Professional Member Role: PCP Address: Address: [address] [place] [address]- Care Team Related Persons Name: JONO WADSWORTH Address: home [address] [place] [address] Name: SYD MENDEZ Address: home [address] [place] [address] Name: MAEVE RODRIGUEZ Address: [address] Address: [address]
--- OUTSIDE RECORDS SUMMARY | 2023-10-25 10:49 | XMS_ITS | Continuity of Care Document ---
Author Organization [facility] Address [address] [place] [address]- Care Team Providers Care Liquid Sugar Fortifier Name Role Phone Yina PERRY, Codie Primary Care Physician [facility] Date[facility]s): 11/07/22 - 01/12/23 [facility] [address] [address]- Attending Physician: Not on Staff, Attending MD [...] Active History of gestational hypertension Confirmed Active Non-Kazakh speaking patient Confirmed Active Social History Social History Type Response Smoking Status Never (less than 100 in lifetime) entered on: 08/10/20 Sex Patient Care team information Care Team Personnel Name: Codie Bran NP Position: [facility] PCO Associate Professional Member Role: PCP Address: Address: [address] [place] [address]- Care Team Related Persons Name: JONO WADSWORTH Address: home [address] [place] [address] Name: SYD MENDEZ Address: [place] [address] Name: MAEVE RODRIGUEZ Address: [address] Address: [address]
--- OUTSIDE RECORDS SUMMARY | 2023-10-25 10:49 | XMS_ITS | Continuity of Care Document ---
Author Organization [facility] Address [address] [place] [address]- Care Team Providers Care Band Director Name Role Phone Amilcar REED, Juan Pizano Primary Care Physician [facility] Date(s): 10/28/20 - 11/27/[address] [address] Allergies, Adverse Reactions, Alerts Substance [...] 08/29/20 13:34:00 EDT, Route to Pharmacy Electronically, [facility] #[id number], Partial fill upon patient request if the pres... Start Date: 08/29/20 Status: Ordered ferrous sulfate 325 mg oral enteric coated tablet 325 mg, 1, tablet, By Mouth, 3 times a day, # 90 tablet, Refills 4, Tot. Refills 4, Maintenance, 11/25/20 16:25:00 EDT, Route to Pharmacy Electronically, [facility] #[id number], Partial fill upon patient request if the prescription is for a sched... Start Date: 11/25/20 Status: Ordered Multivitamins with Folic Acid 1 mg oral tablet 1 tablet, By Mouth, Daily, # 90 tablet, 3 Refills, Maintenance, 11/02/20 8:41:00 EDT, Tablet, [facility] #[id number], Partial fill upon patient request if the [...]
--- OUTSIDE RECORDS SUMMARY | 2023-10-25 10:49 | XMS_ITS | Continuity of Care Document ---
Author Organization [facility] Address Unknown Care Team Providers Care Materials Intern Name Role Phone Yina PERRY, Codie Primary Care Physician Encounter [facility] Date(s): 12/20/20 - 04/01/21 [facility] Attending Physician: Sobeida Schmidt Admitting Physician: Sobeida Schmidt Referring Physician: Gina Frank CNM Allergies, Adverse [...] 02/16/21 8:25:00 EDT, Route to Pharmacy Electronically, [facility] #[id number], Partial fill upon patient request i... Start Date: 02/16/21 Status: Ordered aspirin 81 mg oral tablet, chewable 162 mg, 2, tablet, Chew, Daily, continue until 2 weeks , # 60 tablet, Refills 8, Tot. Refills 8, Maintenance, 08/29/20 13:34:00 EDT, Route to Pharmacy Electronically, [facility] #[id number], Partial fill upon patient request if the pres... Start Date: 08/29/20 Status: Ordered docusate sodium 100 mg oral capsule 1 capsule = 100 mg, By Mouth, 2 times a day, PRN Constipation, # 60 capsule, 0 Refills, Maintenance, 02/16/21 8:26:00 EDT, Capsule, [facility] #[id number], Partial fill upon patient request if the prescription is for a schedule II opioid drug., 1... Start Date: 02/16/21 Status: Ordered ferrous sulfate 325 mg oral enteric coated tablet 325 mg, By Mouth, 3 times a day, # 90 tablet, Refills 1, Tot. Refills 1, Maintenance, 02/16/21 8:28:00 EDT, Route to Pharmacy Electronically, [facility] #[id number], Partial fill upon patient request if the prescription is for a schedule II opioi... Start Date: 02/16/21 Status: Ordered ibuprofen 800 mg oral tablet 800 mg, 1, tablet, By Mouth, Every 8 hours, PRN, not to exceed 3200 mg/day, # 60 tablet, Refills 0,Tot. Refills 0, Maintenance, Pain , Moderate, 02/16/21 8:26:00 EDT, Route to Pharmacy Electronically, [facility] #[id number], Partial fill upon pa... Start Date: 02/16/21 Status: Ordered Multivitamins with Folic Acid 1 mg oral tablet 1 tablet, By Mouth, Daily, # 90 tablet, 3 Refills, Maintenance, 11/02/20 8:41:00 EDT, Tablet, [facility] #[id number], Partial fill upon patient request if the prescription is for a schedule II opioid drug., 1 tablet By Mouth Daily,x90 days, 163,... Start Date: 11/02/20 Stop Date: 10/28/21 Status: Ordered Problem List Condition Effective Dates Status Health Status Inform ant Acne(Confirmed) Active Anemia of (Confirmed) Active Dizzy spells(Confirmed) Active Headache(Confirmed) Active History of gestational hypertension(Confirmed) Active Non-Comoran speaking patient(Confirmed) Active Right leg pain(Confirmed) Active (Confirmed) Active Social History Social History Type Response Smoking Status Never (less than 100 in lifetime) entered on: 08/10/20 Sex
--- OUTSIDE RECORDS SUMMARY | 2023-10-25 10:49 | XMS_ITS | Continuity of Care Document ---
Author Organization [facility] Address [address] [place] [address]- Care Team Providers Care Engineer Soils Name Role Phone Codie Bran NP Primary Care Physician Encounter [facility] Date(s): 05/28/22 - 06/27/[address] [address]- Attending Physician: AdmGreg smith Admitting Physician: AdmtrGreg [...] Active History of gestational hypertension Confirmed Active Non-Slovak speaking patient Confirmed Active Social History Social History Type Response Smoking Status Never (less than 100 in lifetime) entered on: 08/10/20 Sex Note * Event Display: X-Ray Ankle/Foot, Non- Authored Date: Patient Care team information Care Team Personnel Name: Codie Bran NP Position: [facility] PCO Associate Professional Member Role: PCP Address: Address: [address] [place] [address]- Care Team Related Persons Name: JONO WADSWORTH Address: home [address] [place] [address] Name: SYD MENDEZ Address: home [address] [place] [address] Name: MAEVE RODRIGUEZ Address: [address] Address: [address]
--- OUTSIDE RECORDS SUMMARY | 2023-10-25 10:49 | XMS_ITS | Continuity of Care Document ---
Author Organization [facility] Address [address] [place] [address]- Care Team Providers Care Compensation Consulting Manager Name Role Phone Codie Bran NP Primary Care Physician [phone] [facility] Date(s): 10/07/19 - 11/12/[address] [address]- [facility] Attending Physician: Not on Staff, Attending MD [...]
--- OUTSIDE RECORDS SUMMARY | 2023-10-25 10:49 | XMS_ITS | Continuity of Care Document ---
Author Organization [facility] Address [address] [place] [address]- Care Team Providers Care Oracle Dba Name Role Phone Yina PERRY, Codie Primary Care Physician [phone] [facility]counter [facility] Date(s): 07/12/20 - 08/13/20 [facility] [address] [address] Attending Physician: Not [...] 08/10/20 11:50:00 EDT, Route to Pharmacy Electronically, [facility] #[id number], Partial fill upon patient request if the pres... Start Date: 08/10/20 Status: Ordered ondansetron 4 mg oral tablet, disintegrating 1 tablet = 4 mg, By Mouth, Every 8 hours, PRN Nausea & Vomiting, # 30 tablet, 1 Refills, Maintenance, 07/23/20 18:02:00 EST, Tablet, [facility] #[id number], Partial fill upon patient requestif the prescription is for a schedule II opioid drug.,... Start Date: 07/23/20 Status: Ordered Prenatabs Rx oral tablet 1 tablet, By Mouth, Daily, # 30 tablet, 10 Refills, Maintenance, 07/23/20 18:01:00 EST, Tablet, [facility] #[id number], Partial fill upon patient request if the prescription is for a schedule IIopioid drug., 1 tablet By Mouth Daily, 163, cm, /... Start Date: 07/23/20 Status: Ordered Tylenol 325 mg oral capsule 2 capsule = 650 mg, By Mouth, Every 6 hours, PRN as needed for pain, # 60 capsule, 1 Refills, Maintenance, 07/23/20 18:02:00 EST, Capsule, [facility] #[id number], Partial fill upon patient request if the prescription is for a schedule II opioid d... Start Date: 07/23/20 Status: Ordered Unisom 25 mg oral tablet 1 tablet = 25 mg, By Mouth, Daily at bedtime, PRN for sleep, # 32 tablet, 1 Refills, Maintenance, 07/23/20 18:02:00 EST, Tablet, [facility][id number], Partial fill upon patient request if the prescription is for a schedule II opioid drug., 163,... Start Date: 07/23/20 Status: Ordered Vitamin B6 50 mg oral tablet 50 mg, 1, tablet, By Mouth, Daily, for 14 days, # 30 tablet, Refills 1, Tot. Refills 1, Acute 08/20/20 18:02:00 EDT, 07/23/20 18:02:00 EST, Route to Pharmacy Electronically, [facility] #[id number], Partial fill upon patient request if the prescri... Start Date: 07/23/20 Stop Date: 08/20/20 Status: Ordered Problem List Condition Effective Dates Status Health Status Inform ant Acne(Confirmed) Active History of gestational hypertension(Confirmed) Active Social History Social History Type Response Smoking Status Never (less than 100 in lifetime) entered on: 08/10/20 Sex Female
--- OUTSIDE RECORDS SUMMARY | 2023-10-25 10:49 | XMS_ITS | Continuity of Care Document ---
Author Organization [facility] Address [address] [place] [address]- Care Team Providers Care Sales & Service Associate Name Role Phone Yina PERRY, Codie Primary Care Physician Encounter [facility] Date(s): 10/31/22 - 12/07/[address] [address] Attending Physician: Not on [...] Active History of gestational hypertension Confirmed Active Non-Cymro speaking patient Confirmed Active Social History Social History Type Response Smoking Status Never (less than 100 in lifetime) entered on: 08/10/20 Sex Patient Care team information Care Team Personnel Name: Codie Bran NP Position: [facility] PCO Associate Professional Member Role: PCP Address: Address: [address] [place] [address]- Care Team Related Persons Name: JONO WADSWORTH Address: home [address] [place] [address] Name: SYD MENDEZ Address: home [address] [place] [address] Name: MAEVE RODRIGUEZ Address: [address] Address: [address]
--- OUTSIDE RECORDS SUMMARY | 2023-10-25 10:49 | XMS_ITS | Continuity of Care Document ---
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 Start Date: 02/16/21 Status: Ordered aspirin 81 mg oral tablet, chewable 162 mg, 2, tablet, Chew, Daily, continue until 2 weeks , # 60 tablet, Refills 8, Tot. Refills 8, Maintenance, 08/29/20 13:34:00 EDT, Route to Pharmacy Electronically, [facility] #[id number], Partial fill upon patient request if the pres... Start Date: 08/29/20 Status: Ordered docusate sodium 100 mg oral capsule 1 capsule = 100 mg, By Mouth, 2 times a day, PRN Constipation, # 60 capsule, 0 Refills, Maintenance, 02/16/21 8:26:00 EDT, Capsule, [facility] #[id number], Partial fill upon patient request if the prescription is for a schedule II opioid drug., 1... Start Date: 02/16/21 Status: Ordered ferrous sulfate 325 mg oral enteric coated tablet 325 mg, By Mouth, 3 times a day, # 90 tablet, Refills 1, Tot. Refills 1, Maintenance, 02/16/21 8:28:00 EDT, Route to Pharmacy Electronically, [facility] #[id number], Partial fill upon patient request if the prescription is for a schedule II opioi... Start Date: 02/16/21 Status: Ordered ibuprofen 800 mg oral tablet 800 mg, 1, tablet, By Mouth, Every 8 hours, PRN, not to exceed 3200 mg/day, # 60 tablet, Refills 0,Tot. Refills 0, Maintenance, Pain , Moderate, 02/16/21 8:26:00 EDT, Route to Pharmacy Electronically, [facility] #[id number], Partial fill upon pa... Start Date: 02/16/21 Status: Ordered Multivitamins with Folic Acid 1 mg oral tablet 1 tablet, By Mouth, Daily, # 90 tablet, 3 Refills, Maintenance, 11/02/20 8:41:00 EDT, Tablet, [facility] #[id number], Partial fill upon patient request if the prescription is for a schedule II opioid drug., 1 tablet By Mouth Daily,x90 days, 163,... Start Date: 11/02/20 Stop Date: 10/28/21 Status: Ordered Problem List Condition Effective Dates Status Health Status Inform ant Acne(Confirmed) Active Anemia of (Confirmed) Active Dizzy spells(Confirmed) Active Headache(Confirmed) Active History of gestational hypertension(Confirmed) Active Non-Djiboutian speaking patient(Confirmed) Active Right leg pain(Confirmed) Active (Confirmed) Active Social History Social History Type Response Smoking Status Never (less than 100 in lifetime) entered on: 08/10/20 Sex
--- OUTSIDE RECORDS SUMMARY | 2023-10-25 10:49 | XMS_ITS | Continuity of Care Document ---
Author Organization [facility] Address [address] [place] [address]- Care Team Providers Care Cluster Bore Operator Name Role Phone Yina PERRY, Codie Primary Care Physician [phone] [facility] Date(s): 07/15/19 - 08/21/19 [facility] [address] [address]- [facility] Attending Physician: Not on Staff, [...] 06/12/19 23:33:00 EST, Route to Pharmacy Electronically, [facility] #[id number], 163, cm, 06/12/19 20:18:00 EST, Height Start Date: 06/12/19 Status: Ordered Tylenol 325 mg oral tablet 325 mg, 1, tablet, By Mouth, Every 4 hours, PRN, # 60 tablet, Refills 0, Tot. Refills 0, Maintenance, for pain, 06/12/19 23:33:00 EST, Route to Pharmacy Electronically, [facility] #[id number], 163, cm, 06/12/19 20:18:00 EST, Height Start Date: 06/12/19 Status: Ordered Problem List Condition Effective Dates Status Health Status Inform ant Acne(Confirmed) Active Contraception(Confirmed) Active Distressed about housing issues(Confirmed) Active Positive test(Confirmed) Active Social History Social History Type Response Smoking Status Never smoker; Tobacc o user in household: No; Type: Cigarettes entered on: 09/29/14 Sex
--- OUTSIDE RECORDS SUMMARY | 2023-10-25 10:49 | XMS_ITS | Continuity of Care Document ---
Author Organization [facility] Address [address] [place] [address]- Care Team Providers Care Cloth Packer Name Role Phone Yina PERRY, Codie Primary Care Physician [facility] Date[facility]s): 07/14/21 - 08/13/21 [facility] [address] [address]- Allergies, Adverse Reactions, Alerts No Known Allergies [...] 02/16/21 8:25:00 EDT, Route to Pharmacy Electronically, [facility] #[id number], Partial fill upon patient request i... Start Date: 02/16/21 Status: Ordered aspirin 81 mg oral tablet, chewable 162 mg, 2, tablet, Chew, Daily, continue until 2 weeks , # 60 tablet, Refills 8, Tot. Refills 8, Maintenance, 08/29/20 13:34:00 EDT, Route to Pharmacy Electronically, [facility] #[id number], Partial fill upon patient request if the pres... Start Date: 08/29/20 Status: Ordered docusate sodium 100 mg oral capsule 1 capsule = 100 mg, By Mouth, 2 times a day, PRN Constipation, # 60 capsule, 0 Refills, Maintenance, 02/16/21 8:26:00 EDT, Capsule, [facility] #[id number], Partial fill upon patient request if the prescription is for a schedule II opioid drug., 1... Start Date: 02/16/21 Status: Ordered ferrous sulfate 325 mg oral enteric coated tablet 325 mg, By Mouth, 3 times a day, # 90 tablet, Refills 1, Tot. Refills 1, Maintenance, 02/16/21 8:28:00 EDT, Route to Pharmacy Electronically, [facility] #[id number], Partial fill upon patient request if the prescription is for a schedule II opioi... Start Date: 02/16/21 Status: Ordered ibuprofen 800 mg oral tablet 800 mg, 1, tablet, By Mouth, Every 8 hours, PRN, not to exceed 3200 mg/day, # 60 tablet, Refills 0,Tot. Refills 0, Maintenance, Pain , Moderate, 02/16/21 8:26:00 EDT, Route to Pharmacy Electronically, [facility] #[id number], Partial fill upon pa... Start Date: 02/16/21 Status: Ordered Multivitamins with Folic Acid 1 mg oral tablet 1 tablet, By Mouth, Daily, # 90 tablet, 3 Refills, Maintenance, 11/02/20 8:41:00 EDT, Tablet, [facility] #[id number], Partial fill upon patient request if the prescription is for a schedule II opioid drug., 1 tablet By Mouth Daily,x90 days, 163,... Start Date: 11/02/20 Stop Date: 10/28/21 Status: Ordered Problem List Condition Effective Dates Status Health Status Inform ant Acne(Confirmed) Active Anemia of (Confirmed) Active COVID-19(Confirmed) Active Dizzy spells(Confirmed) Active Headache(Confirmed) Active History of gestational hypertension(Confirmed) Active Non-Macedonian speaking patient(Confirmed) Active Right leg pain(Confirmed) Active (Confirmed) Active Social History Social History Type Response Smoking Status Never (less than 100 in lifetime) entered on: 08/10/20 Sex
--- OUTSIDE RECORDS SUMMARY | 2023-10-25 10:49 | XMS_ITS | Continuity of Care Document ---
Author Organization [facility] Address [address] [place] [address]- Care Team Providers Care Round Up Ring Hand Name Role Phone Yina PERRY, Codie Primary Care Physician [facility] Date[facility]): 09/[facility]/20 - 10/23/[address] [address] Allergies, Adverse Reactions, Alerts Substance [...] 08/29/20 13:34:00 EDT, Route to Pharmacy Electronically, [facility] #[id number], Partial fill upon patient request if the pres... Start Date: 08/29/20 Status: Ordered ondansetron 4 mg oral tablet, disintegrating 1 tablet = 4 mg, By Mouth, Every 8 hours, PRN Nausea & Vomiting, # 30 tablet, 1 Refills, Maintenance, 07/23/20 18:02:00 EST, Tablet, [facility] #[id number], Partial fill upon patient requestif the prescription is for a schedule II opioid drug.,... Start Date: 07/23/20 Status: Ordered Prenatabs Rx oral tablet 1 tablet, By Mouth, Daily, # 30 tablet, 10 Refills, Maintenance, 07/23/20 18:01:00 EST, Tablet, [facility] #[id number], Partial fill upon patient request if the prescription is for a schedule IIopioid drug., 1 tablet By Mouth Daily, 163, cm, ... Start Date: 07/23/20 Status: Ordered Tylenol 325 mg oral capsule 2 capsule = 650 mg, By Mouth, Every 6 hours, PRN as needed for pain, # 60 capsule, 1 Refills, Maintenance, 07/23/20 18:02:00 EST, Capsule, [facility] #[id number], Partial fill upon patient request if the prescription is for a schedule II opioid d... Start Date: 07/23/20 Status: Ordered Unisom 25 mg oral tablet 1 tablet = 25 mg, By Mouth, Daily at bedtime, PRN for sleep, # 32 tablet, 1 Refills, Maintenance, 07/23/20 18:02:00 EST, Tablet, [facility] #[id number], Partial fill upon patient request if the [...]
--- OUTSIDE RECORDS SUMMARY | 2023-10-25 10:49 | XMS_ITS | Continuity of Care Document ---
Author Organization [facility] Address [address] [place] [address]- Care Team Providers Care Feeder Driver Name Role Phone Codie Bran NP Primary Care Physician [facility] Date[facility]s): 04/29/19 - 06/03/[address] [address]- [facility] Attending Physician: Codie Bran NP Admitting Physician: [...]
--- OUTSIDE RECORDS SUMMARY | 2023-10-25 10:49 | XMS_ITS | Continuity of Care Document ---
Author Organization [facility] Address [address] [place] [address]- Care Team Providers Care Handle Attacher Name Role Phone Yina PERRY, Codie Primary Care Physician [phone] [facility] Date(s): 06/16/19 - 08/07/19 [facility] [address] [address]- [facility] Attending Physician: Not on Staff, Attending [...] 06/12/19 23:33:00 EST, Route to Pharmacy Electronically, [facility] #[id number], 163, cm, 06/12/19 20:18:00 EST, Height Start Date: 06/12/19 Status: Ordered Tylenol 325 mg oral tablet 325 mg, 1, tablet, By Mouth, Every 4 hours, PRN, # 60 tablet, Refills 0, Tot. Refills 0, Maintenance, for pain, 06/12/19 23:33:00 EST, Route to Pharmacy Electronically, [facility] #[id number], 163, cm, 06/12/19 20:18:00 EST, Height Start Date: 06/12/19 Status: Ordered Problem List Condition Effective Dates Status Health Status Inform ant Acne(Confirmed) Active Contraception(Confirmed) Active Distressed about housing issues(Confirmed) Active Positive test(Confirmed) Active Social History Social History Type Response Smoking Status Never smoker; Tobacc o user in household: No; Type: Cigarettes entered on: 09/29/14 Sex
--- OUTSIDE RECORDS SUMMARY | 2023-10-25 10:49 | XMS_ITS | Continuity of Care Document ---
Author Organization [facility] Address [address] [place] [address]- Care Team Providers Care Field Clerk Name Role Phone Codie Bran NP Primary Care Physician [facility] Date(s): 01/29/22 - 02/28/[address] [address]- Attending Physician: Greg Canales Admitting Physician: Greg [...] 0 Refills, Maintenance, 12/29/21 15:49:00 EDT, [place], [facility]/pharmacy #[id number], Partial fill upon patient request if the prescription is for a schedule II opioid drug., 1 lozenge By Mouth... Start Date: 12/29/21 Status: Ordered ibuprofen 600 mg oral tablet 600 mg, 1, tablet, By Mouth, Every 6 hours, PRN, # 20 tablet, Refills 0, Tot. Refills 0, Maintenance, Pain , Moderate, 12/29/21 15:51:00 EDT, Route to Pharmacy Electronically, [facility]/pharmacy #[id number], Partial fill upon patient request if the prescription i... Start Date: 12/29/21 Status: Ordered Multivitamins with Folic Acid 1 mg oral tablet 1 tablet, By Mouth, Daily, # 90 tablet, 3 Refills, Maintenance, 11/28/21 13:23:00 EDT, Tablet, [facility] #[id number], Partial fill upon patient request if the [...] Maintenance, 12/29/21 15:49:00 EDT, ER Tablet, [id number], Partial fill upon patient request if the prescription is for a schedule II opioid drug.,... Start Date: 12/29/21 Status: Ordered Problem List Condition Confirmation Course Effective Dates Status Health St at[facility] Informant Acne Confirmed Active COVID-19 Confirmed Active Dizzy spells Confirmed Active Headache Confirmed Active History of gestational hypertension Confirmed Active Non-Israeli speaking patient Confirmed Active Social History Social History Type Response Smoking Status Never (less than 100 in lifetime) entered on: 08/10/20 Sex Patient Care team information Personnel Name: Codie Bran NP Address: Address: [address] [place] [address]
--- OUTSIDE RECORDS SUMMARY | 2023-10-25 10:49 | XMS_ITS | Continuity of Care Document ---
Author Organization [facility] Address [address] [place] [address]- Care Team Providers Care Vice President Underwriting Name Role Phone Yina PERRY, Codie Primary Care Physician [facility] Date[facility]s): 07/14/21 - 08/13/21 [facility] [address] [address]- Attending Physician: Not on Staff, Attending MD [...] 02/16/21 8:25:00 EDT, Route to Pharmacy Electronically, [facility] #[id number], Partial fill upon patient request i... Start Date: 02/16/21 Status: Ordered aspirin 81 mg oral tablet, chewable 162 mg, 2, tablet, Chew, Daily, continue until 2 weeks , # 60 tablet, Refills 8, Tot. Refills 8, Maintenance, 08/29/20 13:34:00 EDT, Route to Pharmacy Electronically, [facility] #[id number], Partial fill upon patient request if the pres... Start Date: 08/29/20 Status: Ordered docusate sodium 100 mg oral capsule 1 capsule = 100 mg, By Mouth, 2 times a day, PRN Constipation, # 60 capsule, 0 Refills, Maintenance, 02/16/21 8:26:00 EDT, Capsule, [facility] #[id number], Partial fill upon patient request if the prescription is for a schedule II opioid drug., 1... Start Date: 02/16/21 Status: Ordered ferrous sulfate 325 mg oral enteric coated tablet 325 mg, By Mouth, 3 times a day, # 90 tablet, Refills 1, Tot. Refills 1, Maintenance, 02/16/21 8:28:00 EDT, Route to Pharmacy Electronically, [facility] #[id number], Partial fill upon patient request if the prescription is for a schedule II opioi... Start Date: 02/16/21 Status: Ordered ibuprofen 800 mg oral tablet 800 mg, 1, tablet, By Mouth, Every 8 hours, PRN, not to exceed 3200 mg/day, # 60 tablet, Refills 0,Tot. Refills 0, Maintenance, Pain , Moderate, 02/16/21 8:26:00 EDT, Route to Pharmacy Electronically, [facility] #[id number], Partial fill upon pa... Start Date: 02/16/21 Status: Ordered Multivitamins with Folic Acid 1 mg oral tablet 1 tablet, By Mouth, Daily, # 90 tablet, 3 Refills, Maintenance, 11/02/20 8:41:00 EDT, Tablet, [facility] #[id number], Partial fill upon patient request if the prescription is for a schedule II opioid drug., 1 tablet By Mouth Daily,x90 days, 163,... Start Date: 11/02/20 Stop Date: 10/28/21 Status: Ordered Problem List Condition Effective Dates Status Health Status Inform ant Acne(Confirmed) Active Anemia of (Confirmed) Active COVID-19(Confirmed) Active Dizzy spells(Confirmed) Active Headache(Confirmed) Active History of gestational hypertension(Confirmed) Active Non-Italian speaking patient(Confirmed) Active Right leg pain(Confirmed) Active (Confirmed) Active Social History Social History Type Response Smoking Status Never (less than 100 in lifetime) entered on: 08/10/20 Sex
--- OUTSIDE RECORDS SUMMARY | 2023-10-25 10:49 | XMS_ITS | Continuity of Care Document ---
Author Organization [facility] ter Address [address] [place] [address]- Care Team Providers Care Prepared Foods Supervisor Name Role Phone Yina PERRY, Codie Primary Care Physician Encounter [facility] Date(s): 07/04/23 - 08/09/[address] [address] Attending Physician: Frederick Hou MD [...] vaccine, inactivated 06/08/13 Singh rded SARS-CoV-2 mRNA ([id number]-[id number]) vax 06/27/21 Recorded SARS-CoV-2 (COVID-19) mRNA BNT-162b2 [...] 14:42:00 EDT, Powder, Route to Pharmacy Electronically, [id number], [facility]/pharmacy #[id number], 166, cm, 02/27/23 14:02:00 EDT, Height,... Start Date: 02/27/23 Status: Ordered albuterol CFC free 90 mcg/inh inhalation aerosol 2, puffs, Inhalation, Every 6 hours, PRN, # 8.5 Gm, Refills 4, Tot. Refills 4, Maintenance, 02/13/23 15:05:00 EDT, Route to Pharmacy Electronically, [id number], [facility]/pharmacy#[id number], 166, cm, 02/13/23 14:58:00 [...] Gm, 0 Refills, Maintenance, 03/05/23 14:51:00 EDT, [place], [id number], Partial fill upon patient request [...] Active History of gestational hypertension Confirmed Active Non-Bolivian speaking patient Confirmed Active Social History Social History Type Response Smoking Status Never (less than 100 in lifetime) entered on: 08/10/20 Sex Patient Care team information Care Team Personnel Name: Codie Bran NP Position: [facility] PCO Associate Professional Member Role: PCP Address: Address: [address] [place] [address]- Care Team Related Persons Name: JONO WADSWORTH Address: [address] [address] Name: SYD MENDEZ Address: [address] [address] Name: MAEVE RODRIGUEZ Address: [address] Address: [address] [address] [place] Name: CHAGO CUENCA Address: [address] [address]
--- OUTSIDE RECORDS SUMMARY | 2023-10-25 10:49 | XMS_ITS | Continuity of Care Document ---
Author Organization [facility] Address [address] [place] [address]- Care Team Providers Care Streetcar Motorman Name Role Phone Yina PERRY, Codie Primary Care Physician [phone] Encounter [facility] Date(s): 04/29/23 - 08/01/[address] [address] Attending Physician: Peyton Dyson MD Admitting Physician: Peyton Dyson MD Allergies, Adverse Reactions, [...] vaccine, inactivated 06/08/13 Singh rded SARS-CoV-2 mRNA ([id number]-jvei-apnym) vax 06/27/21 Recorded SARS-CoV-2 (COVID-19) mRNA BNT-162b2 [...] 14:42:00 EDT, Powder, Route to Pharmacy Electronically, [id number], [facility]/pharmacy #[id number], 166, cm, 02/27/23 14:02:00 EDT, Height,... Start Date: 02/27/23 Status: Ordered albuterol CFC free 90 mcg/inh inhalation aerosol 2, puffs, Inhalation, Every 6 hours, PRN, # 8.5 Gm, Refills 4, Tot. Refills 4, Maintenance, 02/13/23 15:05:00 EDT, Route to Pharmacy Electronically, [id number], [facility]/pharmacy#[id number], 166, cm, 02/13/23 14:58:00 EDT, Height, 70.8... Start Date: 02/13/23 Status: Ordered albuterol-ipratropium 3 mg-0.5 mg/3 ml inhalation solution See Instructions, 3 mL Inhalation 4 times a day prn wheezing., # 90 mL, 11 Refills, Maintenance, 02/27/23 14:58:00 EDT, Solution, [id number], Partial fill upon patient request if the prescription is for a schedule II opioid drug., 3 mL Inhalat... Start Date: 02/27/23 Status: Ordered fluticasone 50 mcg/inh nasal spray 1 sprays, Nares, Both, 2 times a day, # 16 Gm, 0 Refills, Maintenance, 03/05/23 14:51:00 EDT, [place], [id number], Partial fill upon patient request [...] 02/13/23 15:07:00 EDT, Route to Pharmacy Electronically, [facility]/pharmacy #[id number], Partial fill upon patient request if the prescription is for a schedule II opioid drug... Start Date: 02/13/23 Stop Date: 08/12/23 Status: Ordered Tylenol 325 mg oral capsule 2 capsule = 650 mg, By Mouth, Every 4 hours, PRN as needed for pain, # 90 capsule, 0 Refills, Maintenance, 01/16/23 16:38:00 EDT, Capsule, [facility]/pharmacy #[id number], Partial fill upon patient request if theprescription is for a schedule II opioid drug., 166... Start Date: 01/16/23 Status: Ordered Zithromax Z-Eliseo 250 mg oral tablet 1 pack/packet, By Mouth, Once, # 6 tablet, 0 Refills, Soft Stop, 02/13/23 15:05:00 EDT, Tablet, [facility]/pharmacy #[id number], Partial fill upon patient request if the prescription is for a schedule II opioid drug., 166, cm, 02/13/23 14:58:00 EDT, Height, 70.8,... Start Date: 02/13/23 Status: Ordered Problem List Condition Confirmation Course Effective Dates Status Health St atus Informant Acne Confirmed Active Dizzy spells Confirmed Active Headache Confirmed Active History of gestational hypertension Confirmed Active Non-Sammarinese speaking patient Confirmed Active Social History Social History Type Response Smoking Status Never (less than 100 in lifetime) entered on: 08/10/20 Sex Patient Care team information Care Team Personnel Name: Codie Bran NP Position: [facility] PCO Associate Professional Member Role: PCP Address: Address: [address] [place] [address]- Care Team Related Persons Name: ERMELINDAJONO MULTANI Address: [address] [address] Name: SYD MENDEZ Address: [address] [address] Name: MAEVE RODRIGUEZ Address: [address] Address: [address] [address] [place] Name: CHAGO CUENCA Address: [address] [address]
--- OUTSIDE RECORDS SUMMARY | 2023-10-25 10:49 | XMS_ITS | Continuity of Care Document ---
Author Organization [facility] Address [address] [place] [address]- Care Team Providers Care Director Supply Name Role Phone Codie Bran NP Primary Care Physician [phone] Encounter [facility] Date(s): 03/29/22 - 05/02/[address] [address]- Attending Physician: Not on Staff, Attending MD [...] 0 Refills, Maintenance, 12/29/21 15:49:00 EDT, [place], [facility]/pharmacy #[id number], Partial fill upon patient request if the prescription is for a schedule II opioid drug., 1 lozenge By Mouth... Start Date: 12/29/21 Status: Ordered ibuprofen 600 mg oral tablet 600 mg, 1, tablet, By Mouth, Every 6 hours, PRN, # 20 tablet, Refills 0, Tot. Refills 0, Maintenance, Pain , Moderate, 12/29/21 15:51:00 EDT, Route to Pharmacy Electronically, [facility]/pharmacy #[id number], Partial fill upon patient request if the prescription i... Start Date: 12/29/21 Status: Ordered Multivitamins with Folic Acid 1 mg oral tablet 1 tablet, By Mouth, Daily, # 90 tablet, 3 Refills, Maintenance, 11/28/21 13:23:00 EDT, Tablet, [email or web address] #[id number], Partial fill upon patient request if the [...] Refills, Maintenance, 12/29/21 15:49:00 EDT, ER Tablet, [facility]/pharmacy #[id number], Partial fill upon patient request if the prescription is for a schedule II opioid drug.,... Start Date: 12/29/21 Status: Ordered Problem List Condition Confirmation Course Effective Dates Status Health St atus Informant Acne Confirmed Active COVID-19 Confirmed Active Dizzy spells Confirmed Active Headache Confirmed Active History of gestational hypertension Confirmed Active Non-Estonian speaking patient Confirmed Active Social History Social History Type Response Smoking Status Never (less than 100 in lifetime) entered on: 08/10/20 Sex Patient Care team information Care Team Personnel Name: Codie Bran NP Position: [facility] PCO Associate Professional Member Role: PCP Address: Address: [address] [place] [address]- Care Team Related Persons Name: JONO WADSWORTH Address: [address] [address] Name: SYD MENDEZ Address: [address] [address] Name: MAEVE RODRIGUEZ Address: [address] Address: [address]
--- OUTSIDE RECORDS SUMMARY | 2023-10-25 10:50 | XMS_ITS | Continuity of Care Document ---
Author Organization [facility] ter Address [address] [place] [address]- Care Team Providers Care Index Editor Name Role Phone Yina PERRY, Codie Primary Care Physician [facility] Date[facility]s): 10/06/19 - 10/06/[address] [address]- [facility] Encounter Diagnosis Nail finding(Final) - 10/06/19 Discharge Disposition: A-D/C Home Attending Physician: Jeannine Garcia MD Admitting Physician: Jeannine Garcia MD Referring Physician: Not on Staff, Referring [...] 06/12/19 23:33:00 EST, Route to Pharmacy Electronically, [facility] #[id number], 163, cm, 06/12/19 20:18:00 EST, Height Start Date: 06/12/19 Status: Ordered Tylenol 325 mg oral tablet 325 mg, 1, tablet, By Mouth, Every 4 hours, PRN, # 60 tablet, Refills 0, Tot. Refills 0, Maintenance, for pain, 06/12/19 23:33:00 EST, Route to Pharmacy Electronically, [facility] #[id number], 163, cm, 06/12/19 20:18:00 EST, Height Start Date: 06/12/19 Status: Ordered Problem List Condition Effective Dates Status Health Status Inform ant Acne(Confirmed) Active Contraception(Confirmed) Active Distressed about housing issues(Confirmed) Active Positive test(Confirmed) Active Vital Signs Most recent to oldest [Reference Range]: 1 2 Weight 70.4 kg (10/06/19 3:21 PM) 70.4 kg (10/06/19 3:19 PM) Oxygen Saturation [94-100 %] 100 % (10/06/19 3:19 PM) Pulse Rate [55-90 bpm] 97 bpm *H* (10/06/19 3:19 PM) Blood Pressure [90-138/55-84 mm Hg] 128/ 87mm Hg (10/06/19 3:19 PM) Respiratory Rate [16-30 br/min] 18 br/mi n (10/06/19 3:19 PM) Temperature [96.8-100.4 DegF] 98.0 DegF (10/06/19 3:19 PM) Mode of Delivery (Oxygen) Room air (10/06/19 3:19 PM) Blood pressure sites Arm, right (10/06/19 3:19 PM) Temperature Route Oral (10/06/19 3:19 PM) Dry Weight 70.4 kg (10/06/19 3:21 PM) 70.4 kg (10/06/19 3:19 PM) Weight Obtained Via Standing scale (10/06/19 3:19 PM) Dry Weight Obtained Via Standing scale (10/06/19 3:19 PM) Social History Social History Type Response Smoking Status Never smoker; Tobacc o user in household: No; Type: Cigarettes entered on: 09/29/14 Sex
--- OUTSIDE RECORDS SUMMARY | 2023-10-25 10:50 | XMS_ITS | Continuity of Care Document ---
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 Start Date: 01/29/20 Status: Ordered Problem List Condition Effective Dates Status Health Status Inform ant Acne(Confirmed) Active Social History Social History Type Response Smoking Status Never smoker; Tobacc o user in household: No; Type: Cigarettes entered on: 09/29/14 Sex Female
--- OUTSIDE RECORDS SUMMARY | 2023-10-25 10:50 | XMS_ITS | Continuity of Care Document ---
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 Role Phone Yina PERRY, Codie Primary Care Physician [phone] [facility]counter [facility] Date(s): 06/15/19 - 07/22/[address] [address]- [facility] Attending Physician: Juan Fitzgerald MD Admitting Physician: Juan Fitzgerald MD Referring Physician: Hubert Aragon DO Allergies, Adverse Reactions, Alerts Substance Reaction [...] 06/12/19 23:33:00 EST, Route to Pharmacy Electronically, [facility] #[id number], 163, cm, 06/12/19 20:18:00 EST, Height Start Date: 06/12/19 Status: Ordered Tylenol 325 mg oral tablet 325 mg, 1, tablet, By Mouth, Every 4 hours, PRN, # 60 tablet, Refills 0, Tot. Refills 0, Maintenance, for pain, 06/12/19 23:33:00 EST, Route to Pharmacy Electronically, [facility] #[id number], 163, cm, 06/12/19 20:18:00 EST, Height Start Date: 06/12/19 Status: Ordered Problem List Condition Effective Dates Status Health Status Inform ant Acne(Confirmed) Active Contraception(Confirmed) Active Distressed about housing issues(Confirmed) Active Positive test(Confirmed) Active Social History Social History Type Response Smoking Status Never smoker; Tobacc o user in household: No; Type: Cigarettes entered on: 09/29/14 Sex
--- OUTSIDE RECORDS SUMMARY | 2023-10-25 10:50 | XMS_ITS | Continuity of Care Document ---
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
== END 2023-10-24 00:16 | disposition left against medical advice (07) ==
PROVIDERS: Emergency Provider Emergency Medicine
DX: R07.89 Other chest pain (principal); J45.909 Unspecified asthma, uncomplicated; R51.9 Headache, unspecified; J02.9 Acute pharyngitis, unspecified; Z11.52 Encounter for screening for COVID-19
CPT/HCPCS: 87502; 87635; 87651; 93005; 99283

== ENCOUNTER → 2023-10-23 21:56 | Outpatient (BNV) | payer OTHER, SELFPAY | PROVIDERS: Emergency Provider Emergency Medicine; Visit Provider Internal Medicine Cardiovascular Disease | DX: R07.9 Chest pain, unspecified (principal) | CPT/HCPCS: 93010 ==

== ENCOUNTER 2024-06-21 10:26 | Emergency (ER) | payer OTHER, SELFPAY ==
--- NOTE | ~2024-06-21 | XR_ITS ---
CLINICAL HISTORY: cough 2 view chest x-ray Comparison: None Findings: Artifact, likely from the patient's hair, projects over the upper chest and neck. No effusion or focal consolidation. No acute fracture. IMPRESSION: 1. No acute findings. Artifact is noted projecting over the upper chest and neck likely from the patient's hair. This document has been electronically signed by: Ricky Amaya MD on 06/21/2024 12:06:28
[2024-06-21 10:32] VITALS: BP 129/78; PULSE 103; RESP 18; TEMP 36.9; O2SAT 100; BMI 27.1
[2024-06-21 11:48] LABS: Influenza A PCR POSITIVE (Negative); Influenza B PCR NEGATIVE (Negative); Resp Syncy Virus RNA Qual PCR NEGATIVE (Negative); SARS COV2 PCR INHOUSE NEGATIVE (Negative)
[2024-06-21 12:13] VITALS: BP 127/71; PULSE 98; RESP 16; TEMP 37.1; O2SAT 98
--- NOTE | 2024-06-21 12:26 | ED_ITS ---
HPI - General Adult General Chief complaint: Fever Stated complaint: fever Time Seen by Provider: 06/21/24 11:21 Source: patient Mode of arrival: ambulatory Limitations: no limitations History of Present Illness ED Provider: GREGORY Abarca HPI narrative: This is a 23-year-old female who denies past medical history presents with body aches and pains fatigue, malaise, intermittent fevers, nausea and vomiting, headaches ongoing for the past 3 days. Reports multiple sick contacts at home with similar symptoms. She reports what is bothering her most of the body aches and pains. She reports she has not been eating much because of the nausea and vomiting still able to tolerate fluids. She denies falls and traumas. Not on blood thinners. Denies chest pain, shortness of breath, vision changes, dizziness, weakness. Related Data Previous Rx's ?Medication ?Instructions ?Recorded ondansetron 4 mg disintegrating 4 mg PO Q6H PRN nausea and 06/21/24 tablet vomiting #14 tabs Allergies Allergy/AdvReac Type Severity Reaction Status Date / Time No Known Allergies Allergy Verified 06/21/24 10:35 Review of Systems Review of Systems: Yes all other systems are reviewed and are negative ON LICENSE OF [facility] Past Medical History Attestation statement: The following information was validated with the patient. Source: old records reviewed and nursing notes reviewed Social History Social History Advance Directives: No Advance Directives Information Provided: No Do you have a plan to hurt others: No Plan Physical Exam ED Vital Signs: Vital Signs - 24 hr 06/21/24 10:32 06/21/24 12:13 Temperature 98.4 F 98.8 F Pulse Rate 103 H 98 Respiratory Rate 18 16 Blood Pressure 129/78 127/71 Pulse Oximetry 100 98 Oxygen Delivery Method Room Air Room Air BMI result Body Mass Index 27.1 vital Signs stable Appearance: Alert.? Oriented X3.? No acute distress.? Head: Normocephalic, atraumatic, no step-offs or deformities Eyes: Pupils equal, round and reactive to light.? ENT: Pharynx normal.? Neck: Normal inspection.? Neck supple.? CVS: Normal heart rate and rhythm.? Pulses normal.? Respiratory: No respiratory distress.? Breath sounds normal.? Abdomen: Soft and nontender.? Skin: Skin warm and dry.? Normal skin color.? Normal skin turgor.? Extremities: No lower extremity edema.? No calf ttp. 5/5 strength to bilateral upper and lower extremities Neuro: Oriented X 3.? No motor deficit.? No sensory deficit. CN 2-12 intact Course Reevaluation(s) Reevaluation #1: Chest x-ray with no acute findings artifact is noted projecting over the upper chest and neck likely from patient's hair. No acute findings. Patient tested positive for flu A consistent with patient's symptoms. Educated patient on diagnosis and treatment plan, answered all question, patient verbalizes understanding. At this time patient will be discharged home, advised to return with new or worsening symptoms. Educated on worrisome signs and symptoms and when to return. At this time I feel comfortable discharge home. Time: 12:29 Medical Decision Making Medical Decision Making [facility] Narrative: 23-year-old female presents with body aches and pains and viral symptoms for the past 3 days multiple sick contacts at home. Physical exam benign. History and physical exam concerning for flu versus COVID versus RSV. Unlikely intracranial hemorrhage, stroke, posterior stroke, rhabdomyolysis, electrolyte abnormalities. Plan at this time viral testing chest x-ray ordered from triage. Differential Diagnosis Differential Diagnoses: The differential diagnosis associated with the presentation includes ( History and physical exam concerning for flu versus COVID versus RSV. Unlikely intracranial hemorrhage, stroke, posterior stroke, rhabdomyolysis, electrolyte abnormalities.) Admission/Observation Consideration of admission/observation: Escalation of care including admission/observation considered Lab Data [facility] Lab Attestation statement: I reviewed the patient's lab results. Labs: Lab Results 06/21/24 Range/Units 10:43 Influenza Type A (PCR) POSITIVE A (Negative) Influenza Type B (PCR) NEGATIVE (Negative) RSV RNA Qual (PCR) NEGATIVE (Negative) SARS-CoV-2 RNA (RT-PCR) NEGATIVE (Negative) Prescription Management I considered sending Tamiflu however symptoms 3-4 days. Not indicated Chronic Conditions Patient?s care impacted by: Other (Patient denies) Critical Care Time Critical Care Time Critical Care Time: No Discharge Plan Discharge Clinical Impression: Influenza Patient Disposition: Home, Self-Care Instructions: Influenza (ED) Additional Instructions: Take your medications as prescribed. If you were prescribed antibiotics today, it is important that you take your medication to their entirety, do not skip any doses, do not finish them early. Follow-up with your primary care provider this week. Return to the emergency department with new or worsening symptoms. In case of emergency call 911 You can take ibuprofen every 6 hours Tylenol every 4 as needed for pain or discomfort Findings: Artifact, likely from the patient's hair, projects over the upper chest and neck. No effusion or focal consolidation. No acute fracture. IMPRESSION: 1. No acute findings. Artifact is noted projecting over the upper chest and neck likely from the patient's hair. Prescriptions: New ondansetron 4 mg tablet,disintegrating 4 mg PO Q6H PRN (Reason: nausea and vomiting) Qty: 14 0RF Referrals: Codie Bran CNP [Primary Care Provider] - 2 days Stand Alone Forms: Work/School Release Interventions: ED Discharge Assessment Last Done: 06/21/24 12:13 Discharge Date/Time: 06/21/24 12:14 Print Language: Setswana
== END 2024-06-21 12:14 | disposition home or self-care (01) ==
PROVIDERS: Emergency Provider Emergency Medicine; PCP Nurse Practitioner Family
DX: J10.1 Influenza due to other identified influenza virus with other respiratory manifestations (principal); R50.9 Fever, unspecified; M79.10 Myalgia, unspecified site; Z03.818 Encounter for observation for suspected exposure to other biological agents ruled out
CPT/HCPCS: 0241U; 71046; 99282; 99283

== ENCOUNTER → 2024-06-21 10:35 | Outpatient (BNV) | payer OTHER, SELFPAY | PROVIDERS: Emergency Provider Emergency Medicine; PCP Nurse Practitioner Family; Visit Provider Radiology Vascular & Interventional Radiology | DX: R05.9 Cough, unspecified (principal) | CPT/HCPCS: 71046 ==

== ENCOUNTER 2024-06-25 23:15 | Emergency (ER) | payer OTHER, SELFPAY ==
--- NOTE | ~2024-06-25 | XR_ITS ---
CLINICAL HISTORY: cough asthma 2 view chest x-ray Comparison: Chest x-ray from 06/21/2024 Findings: Low lung volumes with mild bibasilar atelectasis/pneumonitis. No lobar consolidation. No pneumothorax or pleural effusion. Imaged mediastinum appears unchanged. No significant change in nonaggressive appearing cystic lesion of the head of the left humerus. IMPRESSION: Low lung volumes with mild bibasilar atelectasis/pneumonitis. This document has been electronically signed by: Lito Navarro MD on 06/25/2024 23:45:38
[2024-06-25 23:21] VITALS: BP 117/74; PULSE 98; RESP 18; TEMP 36.7; O2SAT 99; BMI 26.5
[2024-06-26 00:09] LABS: Influenza A PCR POSITIVE (Negative); Influenza B PCR NEGATIVE (Negative); Resp Syncy Virus RNA Qual PCR NEGATIVE (Negative); SARS COV2 PCR INHOUSE NEGATIVE (Negative)
--- NOTE | 2024-06-26 02:50 | PC.NURSE ---
called in WR with no answer
== END 2024-06-26 02:55 | disposition left against medical advice (07) ==
PROVIDERS: Emergency Provider Emergency Medicine; PCP Nurse Practitioner Family
DX: J45.909 Unspecified asthma, uncomplicated (principal); R05.9 Cough, unspecified; Z03.818 Encounter for observation for suspected exposure to other biological agents ruled out
CPT/HCPCS: 0241U; 71046; 99281

== ENCOUNTER → 2024-06-25 23:23 | Outpatient (BNV) | payer OTHER, SELFPAY | PROVIDERS: PCP Nurse Practitioner Family; Visit Provider Radiology Neuroradiology | DX: R05.9 Cough, unspecified (principal); J45.909 Unspecified asthma, uncomplicated | CPT/HCPCS: 71046 ==